=== PATIENT | female | born 1960 | race Caucasian/White ===

== ENCOUNTER 2017-07-05 23:17 | Inpatient (IN) | payer MEDICAID ==
--- NOTE | 2017-07-05 23:40 | CPEKG ---
Heart Rate: 55 RR Interval: 1091 QRSD Interval: 134 QT Interval: 564 QTC Interval: 540 P [place]: 0 QRS [place]: 246 T Wave [place]: 16 EKG Severity - ABNORMAL ECG - EKG Impression: Mobitz II second degree heart block EKG Impression: VENTRICULAR PREMATURE COMPLEX EKG Impression: SUPERIOR QRS AXIS EKG Impression: CONSIDER RIGHT VENTRICULAR HYPERTROPHY EKG Impression: PROLONGED QT INTERVAL Electronically Signed By: Oleg Solano 06-Jul-2017 06:03:27
--- NOTE | 2017-07-05 23:56 | EDPHY ---
H & P Stated Complaint: Low pulse at home HPI/ROS: Chief Complaint: Low heart rate HPI: 56-year-old woman with a history of hypothyroidism, CHF began feeling a weakness malaise and noticed that her heart rate was lower than usual. Denies any recent illness. Does not have a history of similar episodes in the past. She presented to [facility] with a noted that she was heart block and arrange transfer her down here. She was mildly hypokalemic with potassium 3.2. She was given oral potassium supplementation here. Denies any chest pain. Some mild shortness of breath. No fevers or chills. No nausea or vomiting. No recent illness. She has been compliant with all her medications. No recent traveling. ROS: 10 point Review of Systems is negative except as noted in the HPI. PMH: Diabetes type 2, CHF, hypothyroidism Social History: No smoking, no alcohol, no recreational drug use Family History: non-contributory Physical Exam: Gen: Awake, Alert, No Distress, morbidly obese HEENT: Nose: no rhinorrhea Eyes: PERRLA, EOMI Mouth: Moist mucosa Neck: Supple, no JVD Chest: nontender, lungs clear to auscultation Heart: S1, S2 normal, no murmur Abd: Soft, non-tender, no guarding Back: no CVA tenderness, no midline tenderness Ext: no edema, non-tender Skin: no rash Neuro: CN II-XII intact, Sensation grossly intact, Strength 5/5 in bilateral upper and lower extremities - Personal History Current Tetanus/Diphtheria Vaccine: Yes - Medical/Surgical History Hx Asthma: Yes Hx Chronic Respiratory Disease: No Hx Diabetes: Yes Hx Cardiac Disease: Yes Hx Renal Disease: No Hx Cirrhosis: No Hx Alcoholism: No - Social History Smoking Status: Never smoked Constitutional: Initial Vital Signs Temperature (C) 37.5 C 07/05/17 23:31 Heart Rate 78 07/05/17 23:31 Respiratory Rate 17 07/05/17 23:31 Blood Pressure 161/80 H 07/05/17 23:31 O2 Sat (%) 96 07/05/17 23:31 O2 Delivery Mode Room Air Allergies/Adverse Reactions: azithromycin Allergy (Verified 07/05/17 23:40) cefazolin [From Ancef] Allergy (Verified 07/05/17 23:40) cephalexin [From Keflex] Allergy (Verified 07/05/17 23:40) clindamycin Allergy (Verified 07/05/17 23:40) Penicillins Allergy (Verified 07/05/17 23:40) vancomycin Allergy (Verified 07/05/17 23:40) Home Medications: Medication Instructions Recorded Ativan 07/05/17 GABAPENTIN 07/05/17 HCTZ (*) 07/05/17 Humalog 07/05/17 Lasix 07/05/17 Levemir 07/05/17 MAGNESIUM 07/05/17 Metformin HCl 07/05/17 Ms Contin 07/05/17 POTASSIUM CL (KCl) 07/05/17 Protonix 07/05/17 Prozac 10 MG (*) 07/05/17 Spironolactone 07/05/17 Synthroid 07/05/17 ZYRTEC 07/05/17 Zofran 07/05/17 oxyCODONE IR 07/05/17 traZODone HCL 07/05/17 Medical Decision Making - Diagnostics EKG Interpretation: ECG time 11:39 p.m., sinus rhythm with a ventricular rate of 55. She is in a second-degree Mobitz 2 av block with a 2-1 conduction. Also has a prolonged QT at 5:40 a.m.. ED Course/Re-evaluation: I have reviewed her laboratory evaluations stress abel Rondon is mildly hypokalemic with potassium 3.2. Sodium 143. Glucose of 169 %period% creatinine 1.0. Has a mild leukocytosis of white count of 14.3. H&H are 15 and 44. BNP is 97. Troponin is less than 0.012. Case has been discussed with Dr. Rosado, cardiology. He will consult on the patient on the floor tomorrow. I have discussed with Dr. Harris, hospitalist. She will admit to telemetry for further monitoring. Departure - Departure Disposition: [facility] Acute Clinical Impression: Bradycardia Condition: Fair Referrals: Patient,NotPresent [Primary Care Provider] - As per Instructions
[2017-07-06] MEDS ORDERED: LORazepam 0.5 MG TAB PO PRN ×2 (00:28→11:28)
[2017-07-06] MEDS ORDERED: oxyCODONE IR 5 MG TAB PO PRN (00:28)
[2017-07-06] MEDS ORDERED: ACETAMINOPHEN 325 MG TAB PO PRN (00:28)
[2017-07-06] MEDS ORDERED: NS 1,000 ML IV SCH (00:30)
[2017-07-06] MEDS ORDERED: D50W 25 GM/50 ML VIAL IVP PRN (02:51)
[2017-07-06 04:35] LABS: PLATELET COUNT 263 10^3/uL (150-400)
--- NOTE | 2017-07-06 05:09 | GHP ---
[f rep st] HISTORY AND PHYSICAL DATE OF ADMISSION: 07/06/2017 SOURCE: Patient provides history, appears reliable. Her EMR was reviewed. Case discussed with ED lacy mansfield and also reviewed outside hospital records from [facility]. CHIEF COMPLAINT: Irregular pulse, slow heart rate, and chest pain. HISTORY OF PRESENT ILLNESS: This is a pleasant 56-year-old female with multiple medical issues inclu ding diabetes type 2 with neuropathy, hypothyroidism, chronic pain syndrome on chronic opiate therapy , morbid obesity with BMI 53.0, asthma, depression, headaches, diastolic CHF, anemia, iron deficiency with Bey's, and a history of thoracic outlet syndrome who presents to the emergency department a t [facility] today with complaints of slowed heart rate. The patient states that she felt nearly pre syncopal while at rest this afternoon, sitting on her neighbor's porch. The patient reports that she felt like her heart was feeling funky the last 2 days and she felt as though her heart stopped for a few moments and then began to experience significant palpitations within a few seconds. The patient reports a history of PATs and PVCs, especially with any increase in altitude. She denies any chest pain or discomfort, rather just the palpitations. She also reports increasing shortness of breath fr om her baseline. Patient with a known history of diastolic CHF for which she takes HCTZ and Lasix, s pironolactone p.r.n. The patient denies any orthopnea, lower extremity edema, PND currently. 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 She checked her heart rate and her oxygen and noted that her heart rate was in the 50s. Normally she is in the 80s. The patient presented to [facility] in the evening for evaluation shortly after her symptoms began. REVIEW OF SYSTEMS: GENERAL: Patient denies any fevers or chills. SKIN: No acute rashes or sores. ENT: Positive sore throat. No rhinorrhea. EYES: Patient does wear readers. No acute changes in vision. CV: Chest pain and palpitations as per HPI. RESPIRATORY: No cough. Shortness of breath i s resolved, as noted above. GI: Patient denies any abdominal pain currently. She did experience so me cramping on [place], which has since resolved. She does have a history of hemorrhoids. : No dysuria, hematuria. MUSCULOSKELETAL: Patient reports some chronic left subscapular pain, which has required use of chronic narcotic therapy. NEUROPATHY: Bilateral feet and occasional headache. No current migraine. PSYCH: Patient reports history of anxiety and depression for which she reports th at she has excellent impulse control, although it appears that she does have some potential suicidal ideation that she had and adamantly denies that she would ever harm herself. No HI. The remainder of review of systems is negative except as above. ALLERGIES: Vancomycin, penicillin, Demerol, codeine, Keflex, clinda, lisinopril, patient develops we akness. PAST MEDICAL HISTORY: Significant for GERD, diastolic CHF, iron deficiency anemia, diabetes type 2, neuropathy, hypothyroidism, chronic pain on chronic opiate therapy for subscapular pain, history of t horacic outlet syndrome, JONNY on BiPAP at home, Bey esophagus. Patient with multiple antihyperten sives. Reviewed this with the patient, she adamantly denies history of hypertension. At least, she reports that she will refuse to acknowledge it, so I am not able to clarify if she actually has been diagnosed with hypertension on an outpatient basis. PAST SURGICAL HISTORY: Significant for tonsillectomy, adenoidectomy, appendectomy, cholecystectomy, both of which were open, with exploratory laparotomy, hysterectomy, lysis of adhesions, left 1st rib resection, left total knee arthroplasty, and several D and Cs. FAMILY HISTORY: Significant for Mother and Father with JONNY. Mother with diabetes, hypertension. Fa ther with hypertension. 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 She does not smoke, drink, or do drugs. CODE STATUS: Full. Patient desires her sister, Usha Solis, to act as proxy if needed. PHYSICAL EXAMINATION: VITAL SIGNS: Initial vitals at [facility], blood pressure 122/56, respiratory rate 15, pulse 47, temperature 98.4, O2 saturation 92% on room air. Vitals currently available at [facility] of interview, blood pressure 144/66, heart rate 65, respiratory rate 19, O2 saturation 91% on patricia m air with temperature 37.3. GENERAL: No acute distress. Pleasant, morbidly obese female who appea rs quite older than stated age, who is sitting up on gurney, is not in any acute distress. HEAD: No rmocephalic, atraumatic. EYES: Extraocular muscles are grossly intact with voluntary gaze. Pupils equal, round, symmetric. No scleral icterus or conjunctival injection. ENT: Mucous membranes appea r moist. No nasal discharge. Dentition intact. CV: Regular rate and rhythm with a 2/6 to 3/6 syst olic murmur present. No rubs or gallops. RESPIRATORY: Unlabored breathing. Lungs are clear to aus cultation bilaterally. No wheezes, rales, or rhonchi appreciated. ABDOMEN: Obese, soft, nontender to palpation. No apparent masses. : No suprapubic tenderness to palpation. No Ruth catheter in place. PSYCH: Patient does appear anxious and depressed. She has slightly increased rate of speec h, but it is not pressured. Patient does report a history of persistent long-standing SI without any plans and no HI. Patient reports she has struggled with depression since the age of 16 several time s. LABORATORY STUDIES: From [facility]: Sodium is 143, potassium 3.2, chloride 104, CO2 is 20, glucose 169, BUN 14, creatinine 1.0, GFR of greater than 60. Calcium 10.0, magnesium 1.9. WBC is 14.3, H a nd H is 14.8 and 44.5, MCV of 87.0, platelet count is 279. No bands. BNP is 97. Troponin is negati ve. TFTs including free T4, TSH, all within normal limits. EKG initial from outside facility reviewed myself and compared to current EKG: Significant for tejas l sinus rhythm in the 70s with a second-degree AV block, Mobitz type II. No acute ST changes. QTc i s initially greater than 600, current in the ER is greater than 540. ASSESSMENT AND PLAN: Pleasant 56-year-old female with multiple chronic medical comorbidities, who pr esents to the emergency department with complaints of palpitations, dyspnea, and feeling as though he r heart stopped. 1. Second-degree AV block Mobitz type II, 2:1 block. The patient will be monitored on telemetry zion serge. She already has an external pacer pad in place. Currently blood pressures are acceptable and plan to monitor closely. If the patient's heart rate should continue to downtrend, will require some atropine p.r.n. For now, we will just monitor. Cardiology was consulted from the emergency departm ent and will plan to see the patient in the morning. 2. Hypokalemia. Replacement has been ordered. The patient denies that she has been on any of her d iuretics recently. 3. Left bundle branch block. Unclear if this is new. 4. Prolonged QTc. We will request that Pharmacy assist with monitoring and try to minimize potentia l risks. 5. Leukocytosis, likely reactive. We will plan to monitor. Patient is afebrile. 6. Diastolic congestive heart failure with decompensation, chronic. May require initiation of her d iuretics. We will monitor her fluid status. 7. Diabetes type 2, uncontrolled. Continue patient's Lantus which she reports she received prior to arrival and will further verify the patient's home med rec while awaiting reconciliation with APS in the morning. 8. Gastroesophageal reflux disease. Continue patient's Protonix and H2 kieran p.r.n. 9. Neuropathy. Continue gabapentin. 10. Allergic rhinitis. Zyrtec daily, when list is reconciled. 11. Chronic pain. Resume patient's Oxy IR and MS Contin. Monitor blood pressures closely. She is on telemetry and pulse ox. 12. Hypothyroidism. TSH evaluated, within normal limits. Okay to continue patient's home dosing of Synthroid. 13. Hyperlipidemia. Continue statin when list is available. 14. Morbid obesity. BMI of 52.0. Patient reports that her chronic pain in the left scapula is wors ened by any sort of activity. So, she has minimal capacity for exertion. But, would recommend lifes tyle changes and weight loss. 15. Fluid, electrolyte, and nutrition. Patient will receive some gentle IV fluid hydration. Blood pressures will be monitored as well as fluid status. The patient will receive an ADA diet and then n .p.o. pending Cardiology evaluation and recommendations. Reviewed with the patient, possibility for placement of pacer may not be a possibility until electrophysiologic safety representative is available for pa cer placement, but will await Cardiology recommendations. 16. Prophylaxis. Sequential compression devices. Holding Lovenox pending Cardiology recommendation s. If the patient requires additional hospital stay, will initiate anticoagulation therapy. Sequent ial compression devices as tolerated. 17. Code status. Full. Patient desires her sister, Usha Solis, to act as proxy if needed. 18. Disposition. Patient has been admitted to observation at this time on the telemetry floor, pend ing Cardiology recommendations. If recommendation is to proceed with the pacer placement and electro mh teacher is not available, then anticipate the patient will need to remain in the hospital until such time as this is done, but again, we will await Cardiology recommendations and place patient to o bservation on PCU for close cardiac monitoring. /[id number]/MODL
[2017-07-06] MEDS ORDERED: PROTOCOL MAGNESIUM 1 DOSE IV PRN (08:28)
[2017-07-06] MEDS ORDERED: PROTOCOL POTASSIUM 1 DOSE MISC PRN (08:28)
[2017-07-06] MEDS ORDERED: morphINE SR 15 MG TAB PO SCH ×2 (09:00→21:00)
[2017-07-06] MEDS: INSULIN LISPRO 100 UNIT/ML SC SCH ×3 (09:11→18:58)
[2017-07-06] MEDS ORDERED: REGADENOSON 0.4 MG/5 ML SYR IVP ONE (10:37)
--- NOTE | 2017-07-06 10:45 | GCON ---
[f rep st] CONSULTATION CARDIOLOGY CONSULTATION DATE OF CONSULTATION: 07/06/2017 REFERRING PHYSICIAN: Zaira Harris MD CHIEF COMPLAINT: Heart block and chest pain. HISTORY OF PRESENT ILLNESS: We were asked by Dr. Harris to visit with this patient. The patient is a 56-year-old female with diabetes, hypertension, sleep apnea, heart failure with preserved ejection f raction. She does not have any known history of coronary disease or any known history of arrhythmia. She was watching a football game yesterday and started to feel unwell. She describes feeling "vaga l." She was a little bit lightheaded, but did not have syncope. She had some sensation in her chest that "didn't feel right." It was not pressure, but she felt like her heart was working harder. Her heart rate was low, which is unusual for her, in the 50s; and she felt short of breath. She got up and had a bowel movement, but continued to feel somewhat poorly. She therefore presented to the [facility] emergency department. There, she was found to be in 2:1 heart block on 12-lead EKG. I reviewed rhythm strips, some of whic h show [place]. She was therefore transferred for further evaluation and management. Upon my evaluation, she reports feeling back to normal and that her heart rate is now normal in the 7 0s. She currently has no chest pressure or dyspnea. She does not have any history of syncope in the past. A few months ago she did have a similar episode where she felt like her heart rate was irregu lar, but did not seek medical attention at that time. REVIEW OF SYSTEMS: A full 10-point review of systems performed and is notable for that which is deta iled above. She has also had somewhat of an upset stomach intermittently for the past 6 days. No vo miting. No diarrhea. No fever, chills, rash. No urinary symptoms. No neurological symptoms. The patient reports that she has missed 3 doses of potassium because she was just not feeling well. She wondered if potassium was too high. Also, she has been taking a supplement called EDTA, that is some sort of chelating agent, but she has not taken this for a week. ALLERGIES: Azithromycin, cefazolin, cephalexin, clindamycin, penicillin, vancomycin. PAST MEDICAL HISTORY: 1. Sleep apnea, on CPAP. 2. Diabetes. 3. Kidney stones. 4. Hypothyroidism. 5. Hypertension. 6. Heart failure with preserved ejection fraction. 7. Bey esophagus and reflux. 8. Chronic pain syndrome, on narcotics. 9. Depression. 10. Anemia with iron deficiency. 11. Reactive airways disease. 12. Morbid obesity. 13. Thoracic outlet syndrome. MEDICATIONS: Outpatient medications have not been reconciled, but according to the [facility] emerge ncy department, they include Protonix, HCTZ, metformin, insulin, magnesium, gabapentin, albuterol, ar modafinil, aspirin, Zyrtec, famotidine, Lasix, Synthroid, Ativan, magnesium oxide, melatonin, MS Cont in, Zofran, potassium chloride, simvastatin, tramadol and Zomig. SURGICAL HISTORY: Cholecystectomy, appendectomy, adenoidectomy, tonsillectomy, hysterectomy, lysis o f adhesions, left total knee arthroplasty, D and C's, left 1st rib resection. SOCIAL HISTORY: The patient lives alone. She is a retired ER nurse. She does not smoke cigarettes. She drinks alcohol rarely. She denies significant use of supplements, other than EDTA. FAMILY HISTORY: Both parents had sleep apnea. Mother had diabetes and hypertension. Father had hyp ertension. PHYSICAL EXAM: VITAL SIGNS: Blood pressure 111/65, heart rate 74, oxygen saturation 91% on room air . She is afebrile. GENERAL: Well-appearing, middle-aged female in no acute distress. HEENT: Scle nayla clear, free of jaundice. Mucous membranes moist. CARDIOVASCULAR: JVP is less than 10. Carotid s equal and 2+ without bruit. Regular rate and rhythm without murmur or gallop. LUNGS: Clear to au scultation; without wheeze, rhonchi or rales. ABDOMEN: Obese, soft, nontender, nondistended; withou t bruits, masses or hepatosplenomegaly. EXTREMITIES: Warm and well perfused; without cyanosis, club jake or edema. NEURO: Alert and oriented x3, without gross focal neurologic deficits. LABORATORY DATA: White count is 13.03 with a left shift, hematocrit 40.2, and platelets 263. Sodium 144, potassium 3.8, chloride 103, bicarb 24, BUN 16, creatinine 1.0, glucose is 128. Troponin negat kranthi x1. TSH is normal. Magnesium 1.8. EKG reviewed by me from our ER department shows complete heart block with a junctional escape of 55 b eats per minute. No ischemic ST-T wave abnormalities. EKG from [facility] as well as rhythm strips reviewed and detailed above. ASSESSMENT AND PLAN: A 56-year-old female with multiple cardiac risk factors, presents with lighthea dedness and intermittent complete heart block as well as episodes of type 1 and type 2 heart block. She is currently in normal sinus rhythm. It is possible that she has significant vagal trigger relat ed to her gastrointestinal symptoms. I am also, however, concerned about cardiac ischemia as a marc er given her multiple cardiac risk factors and description of vague chest discomfort around the time that this is happening. It is reassuring that her 1st troponin has been negative despite several rhonda rs of symptoms. 1. Heart block: She is currently hemodynamically stable, in normal sinus rhythm. There is no indic ation for urgent pacemaker. She does require further monitoring. We will replete her electrolytes. Her thyroid is normal. We will check a 2nd troponin and if this is negative, proceed with further r isk stratification with a Lexiscan nuclear stress test. She is unable to walk on the treadmill due t o orthopedic limitations. If she has no further episodes of heart block while here on the monitor, I would recommend close outpatient followup with a 30-day event recorder. She is not on any medicatio ns that should induce heart block, and I have advised that she stop taking the EDTA supplement, as I do not know the possible side effects. 2. Hypertension: Currently fairly well controlled on her outpatient medications. 3. Chest pain: Her 1st troponin is negative. EKG is nonischemic. It is a puzzle. Check 2nd tropo buffy and if normal, proceed with Lexiscan nuclear stress test. 4. History of heart failure with preserved ejection fraction: She appears euvolemic. Echocardiogra m is pending. Continue outpatient medications with the exception of hydrochlorothiazide. 5. History of hypokalemia: She has chronically been on hydrochlorothiazide for kidney stones. I wo uld advise holding this for now and repeating her potassium. It is possible that her electrolyte abn ormality somehow played into her heart rhythm disturbance. 6. Elevated white count: She does not appear to be acutely infected. Follow this. She is afebrile . We will defer to the hospitalist about whether she requires further evaluation for elevated white count. 7. Sleep apnea: Continue continuous positive airway pressure. Thank for allowing us to participate in this patient's care. More recommendations will follow her ec hocardiogram and nuclear stress test. /[id number]/MODL
--- NOTE | 2017-07-06 10:56 | ECHO ---
[email or web address] [address] [address] Main: [phone] Fax: [email or web address] Echocardiogram Name: CECE STAHL MR#: [id number] Study Date: 07/06/2017 Study Time: 09:34 AM Date of : 1960 Age: 56 year(s) Height: 162.6 cm (64 in.) Weight: 141.52 kg (312 lb.) BSA: 2.36 m2 Gender: Female Examination: Echo Indication: Bradycardia/CHF/2nd degree heart block Image Quality: Contrast: Requested by: Zaira Harris BP: 111 mmHg/65 mmHg Heart Rate: Rhythm: Indication: Bradycardia/CHF/2nd degree heart block Procedure Staff Exchange Architect: Jeannie Yanez Reading Physician: Tabitha Mckeon Requesting Provider: Zaira Harris Conclusions: Normal size left ventricle. Normal global systolic LV function. Technically limited study; no gross regional wall motion abnormalities. Normal size right ventricle. Valves are not well visualized; no significant regurgitant or stenotic lesions by Doppler There is no previous echocardiogram for comparison. Measurements: Chambers Valvular Assessment AV/MV Valvular Assessment TV/PV Normal Normal Normal Name Value Range Name Value Range Name Value Range Ao Lily (MM): 3.4 cm (2.2 cm-3.7 AV Vmax: 1.09 m/s (1 m/s-1.7 cm) m/s) LVDd (2D): 3.8 cm (3.9 cm-5.3 AV maxP mmHg ( - ) cm) MV E Vmax: 0.74 m/s ( - ) MV A Vmax: 0.81 m/s ( - ) MV E/A: 0.91 ( - ) Continued Measurements: Chambers Valvular Assessment AV/MV Name Value Name Value LADs: 3.9 cm MV E/E' Septal: 12.50 MV E/E' Lateral: 10.10 Findings: Left Ventricle: Normal size left ventricle. Normal global systolic LV function. Technically limited study; no gross Patient: CECE STAHL Study Date: 07/06/2017 Page 1 of 2 09:34 AM regional wall motion abnormalities. Right Ventricle: Normal size right ventricle. Normal RV function. Left Atrium: The LA is borderline dilated.. Right Atrium: The right atrium is normal in size. Mitral Valve: The mitral valve is normal in appearance. Aortic Valve: Aortic valve is not well visualized. Tricuspid Valve: The tricuspid valve appears normal. Pulmonic Valve: Pulmonary valve not well visualized. Pericardium: No pericardial effusion. There is pericardial fat. (No Signature Object) Patient: CECE STAHL Study Date: 07/06/2017 Page 2 of 2 09:34 AM [id number]
--- NOTE | 2017-07-06 11:15 | CPIP ---
[f rep st] INVASIVE CARDIAC PROCEDURE CHIEF COMPLAINT: Palpitations. PROCEDURE: The patient gave informed consent for nuclear imaging Lexiscan. She is not a candidate f or walking on a treadmill. FINDINGS: Her baseline EKG is abnormal with interventricular conduction delay and dropped non-conduc osmany premature atrial contractions. With the Lexiscan injection, the patient received no chest pain, chest tightness, or other troubles. She is in sinus rhythm at the end of the study and nuclear image s are pending. All questions have been answered. COMPLICATIONS: None. CONDITION AT END OF STUDY: Excellent. /[id number]/MODL
[2017-07-06] MEDS ORDERED: NON-FORMULARY NEW DRUG (Gabapentin [Neurontin] 600 MG) PO PRN (11:28)
[2017-07-06] MEDS ORDERED: morphINE SR 15 MG TAB PO PRN (11:28)
--- NOTE | 2017-07-06 11:46 | ASMTCMCOM ---
CM Note CM Note Notes: 07/06/2017 Case Management Note Met w/pt. 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 Her primary care provider is Jaja Renae ([facility] per pt). Pt has Home O2 provided by [facility]. Pt plans to start cardiac rehab as an outpatient as recommended by Jaja Renae. Pt to contact cardiac rehab on Friday. Case Management d/c poc: home independent with follow up as directed. Case Management available if needs change. Date Signed: 07/06/2017 11:46 AM Electronically Signed By:Maryana Dash RN
[2017-07-06] MEDS ORDERED: GABAPENTIN 300 MG CAP PO PRN (11:58)
[2017-07-06] MEDS ORDERED: POTASSIUM CL 10 MEQ TAB PO ONE (12:54)
[2017-07-06] MEDS: oxyCODONE IR 5 MG TAB PO PRN (13:05)
--- NOTE | 2017-07-06 16:39 | HOSPPROG ---
Hospitalist Progress Note Assessment/Plan: Stress images abnormal. Needs rest images in am. 3rd degree heart block - may need eventual pacemaker. Objective: Vital Signs Temp Pulse Resp BP Pulse Ox 36.8 C 80 17 138/80 H 97 07/06/17 16:20 07/06/17 16:20 07/06/17 16:20 07/06/17 16:20 07/06/17 16:20 Laboratory Results 07/06/17 03:55 07/06/17 09:25 07/05/17 07/06/17 07/07/17 05:59 05:59 05:59 Intake Total 750 Balance 750 ICD10 Worksheet Patient Problems: Problems Problem Status Onset Bradycardia Acute
--- NOTE | 2017-07-06 17:02 | PDMN ---
Medical Necessity Medical necessity: C/M review: est. > 2 MN LOS for eval and TX of acute and persistent intermittent 3d degree heart block, 07/06/2017 myocardial perfusion scan stress test images abnormal requiring planned 07/07/2017 myocardial perfusion scan rest images, patient may need eventual pacemaker, ongoing cardiac monitoring, pulse oximetry per 07/06/2017 Hospitalist progress note
[2017-07-06] MEDS: metFORMIN HCL 500 MG TAB PO SCH (18:41)
[2017-07-06] MEDS: POTASSIUM CL 20 MEQ TAB PO SCH (20:18)
[2017-07-06] MEDS: MAGNESIUM OXIDE 400 MG TAB PO SCH (20:19)
[2017-07-06] MEDS: PANTOPRAZOLE SODIUM 40 MG TAB PO SCH (20:19)
[2017-07-06] MEDS: INSULIN GLARGINE 100 UNITS/ML SYRINGE SC SCH (20:36)
[2017-07-06] MEDS ORDERED: GABAPENTIN 400 MG CAP PO SCH (21:00)
[2017-07-06] MEDS ORDERED: IPRATROPIUM/ALBUTEROL 3 ML DEYVIAL IH SCH (21:00)
[2017-07-06] MEDS ORDERED: CETIRIZINE 10 MG TAB PO SCH (21:00)
[2017-07-06] MEDS ORDERED: NON-FORMULARY NEW DRUG (Gabapentin [Neurontin] 1,200 MG) PO SCH (21:00)
[2017-07-06] MEDS ORDERED: NON-FORMULARY NEW DRUG (Magnesium Oxide [Magnesium] 500 MG) PO SCH (21:00)
[2017-07-06] MEDS ORDERED: TOPIRAMATE 100 MG TAB PO SCH (21:00)
[2017-07-06] MEDS ORDERED: NON-FORMULARY NEW DRUG (Insulin Detemir [Levemir] 40 UNIT) SC SCH (21:00)
[2017-07-06] MEDS ORDERED: NON-FORMULARY NEW DRUG (Eszopiclone [Lunesta] 3 MG) PO SCH (21:00)
[2017-07-06] MEDS ORDERED: ZOLPIDEM TARTRATE 5 MG TAB PO SCH (21:00)
[2017-07-07] MEDS ORDERED: POTASSIUM CL 10 MEQ TAB PO ONE (03:22)
[2017-07-07 04:21] LABS: PLATELET COUNT 243 10^3/uL (150-400)
[2017-07-07] MEDS ORDERED: LEVOTHYROXINE 50 MCG TAB PO SCH (06:00)
[2017-07-07] MEDS: INSULIN LISPRO 100 UNIT/ML SC SCH ×2 (07:34→11:41)
[2017-07-07] MEDS ORDERED: ALLOPURINOL 300 MG TAB PO SCH (09:00)
[2017-07-07] MEDS ORDERED: ASPIRIN EC 81 MG TAB PO SCH (09:00)
[2017-07-07] MEDS ORDERED: FLUoxetine 20 MG CAP PO SCH (09:00)
[2017-07-07] MEDS ORDERED: NON-FORMULARY NEW DRUG (Fluoxetine Hcl [Prozac 40 Mg] 40 MG) PO SCH (09:00)
[2017-07-07] MEDS ORDERED: HYDROCHLOROTHIAZIDE 25 MG TAB PO SCH (09:00)
[2017-07-07] MEDS: metFORMIN HCL 500 MG TAB PO SCH (11:33)
[2017-07-07] MEDS: POTASSIUM CL 20 MEQ TAB PO SCH (11:35)
[2017-07-07] MEDS: MAGNESIUM OXIDE 400 MG TAB PO SCH (11:36)
[2017-07-07] MEDS: PANTOPRAZOLE SODIUM 40 MG TAB PO SCH (11:37)
[2017-07-07] MEDS: INSULIN GLARGINE 100 UNITS/ML SYRINGE SC SCH (11:38)
[2017-07-07 11:44] VITALS: BP 124/76; PULSE 73; RESP 17; TEMP 98.4; O2SAT 95
--- NOTE | 2017-07-07 13:43 | PDCARPN ---
Cardiology Progress Note Assessment/Plan: Assessment/plan: 56-year-old female with obesity, diabetes, hypertension, sleep apnea. She is admitted with transient heart block, brief complete heart block, some type 1, and some type 2 second-degree heart block. This has resolved. She was having vagal symptoms. She has ruled out for myocardial infarction had a normal myocardial perfusion study. 1. Transient heart block: This may have been vagally triggered or possibly electrolyte abnormalities are potassium was low in the [facility]. The past 20 far she has been in sinus rhythm. Currently no clear indication for pacemaker. I do think, however, she requires close clinical follow-up as an outpatient she will wear a 2 week event recorder in follow-up [facility]. She will call immediately if she has further lightheadedness or symptoms of dropped beats. 2. Chest pain: Negative troponins. Nonischemic EKG. Normal myocardial perfusion study. Continue risk factor modification. 3. Hypertension: Continue outpatient medications, consider stopping hydrochlorothiazide as she has had previous problems with hyperkalemia. 4. Diabetes: Outpatient medications. At this point she is stable for discharge from a cardiac standpoint. Follow-up as detailed above. Thank you 07/07/17 13:47 Subjective: No further chest pain. No further sensation of dropped beats. She is slightly dyspneic with exertion. Objective: Vital Signs (8 Hrs) Temp Pulse Resp BP Pulse Ox 07/07/17 11:43 36.9 C 73 17 124/76 H 95 07/07/17 07:36 37.0 C 78 13 104/58 L 99 Intake/Output (24 Hrs) 07/06/17 07/07/17 07/08/17 05:59 05:59 05:59 Intake Total 1200 450 Balance 1200 450 Intake: Oral (ml) 1200 450 Other: Weight 140.16 kg Intake Quantity Yes Sufficient Number of Voids Toilet 3 Number of Stools Toilet 1 No acute distress. Regular rate and rhythm without murmur or gallop Lungs clear bilaterally without wheezes rhonchi or rales No lower extremity edema Result Diagrams: 07/07/17 04:15 07/07/17 04:15 Telemetry: NSR Echocardiogram: Reviewed. Technically limited study. Normal LV systolic function without obvious regional wall motion abnormalities. No significant valvular disease on this limited study. ICD10 Worksheet Patient Problems: Problems Problem Status Onset Bradycardia Acute
[2017-07-07] MEDS: oxyCODONE IR 5 MG TAB PO PRN (15:33)
--- NOTE | 2017-07-07 16:15 | ASDISCHSUM ---
Discharge Information Plan Status:Home with No Needs Medically Cleared to Leave:07/06/2017 Discharge Date:07/07/2017 03:38 PM CM D/C Disposition:Home, Routine, Self-Care ADT D/C Disposition:Home, Routine, Self-Care Projected Discharge Date:07/07/2017 12:00 AM Transportation at D/C:Self Discharge Delay Reason: Follow-Up Date:07/07/2017 12:00 AM Discharge Slot: Final Diagnosis: Placement Information Patient Contact Information Contact Name:DENISE Relationship: Address: Home Phone: Work Phone: City: Alternate Phone: State/[place] Code: Email: Financial Information Financial Class: Primary Plan Desc:[employer] Primary Plan Number:[id number] Secondary Plan Desc: Secondary Plan Number: Assessment Information [facility] CM Progress Note CM Note CM Note Notes: 07/06/2017 Case Management Note Met w/pt. 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 Her primary care provider is Jaja Renae ([facility] per pt). Pt has Home O2 provided by [facility]. Pt plans to start cardiac rehab as an outpatient as recommended by Jaja Renae. Pt to contact cardiac rehab on Friday. Case Management d/c poc: home independent with follow up as directed. Case Management available if needs change. Date Signed: 07/06/2017 11:46 AM Electronically Signed By:Maryana Dash RN Intervention Information
--- NOTE | 2017-07-07 19:24 | GDS ---
[f rep st] DISCHARGE SUMMARY DISCHARGE DIAGNOSES: 1. Transient complete heart block, suspect vagal. 2. Chest pain with negative ischemic workup. 3. Morbid obesity. BMI 53. 4. Diabetes, type 2. 5. Obstructive sleep apnea, on BiPAP. 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 She describes intermi ttent palpitations and also feeling like her heart is stopping and slowing. There is also associated chest pain with these episodes. In the emergency department at [place], she was noted to have a brief complete heart block, as well as episodes of type 1 and type 2 heart block. Throughout her observation period here she remained in normal sinus rhythm. She was seen by Dr. Jose Mckeon who felt these were vagally mediated due to gastrointestinal symptoms. She obtained a cardiac stress to work up for possible cardiac ischemia as a cause, given her presentation of chest pain. H er stress test was normal. Dr. Mckeon does not feel there is enough evidence to place a pacemaker at [facility] time, given the suspicion for vagal mediation. She recommends outpatient event monitoring for e next 2 weeks for further assessment. She also recommends discontinuing her hydrochlorothiazide, as the patient was hypokalemic on presentation which may be contributing. DISCHARGE MEDICATIONS: Please see computer record for a full detailed list. There are no new medica tions at hospital discharge. Discontinued medications are hydrochlorothiazide 25 mg p.o. daily. ADDITIONAL DISCHARGE INSTRUCTIONS: A 2-week event monitor to be arranged through [facility] with followup with Dr. Tabitha Mckeon. Greater than 30 minutes' time was spent in arranging this discharge. The patient was seen and examin ed by me on the day of discharge. /[id number]/MODL
== END 2017-07-07 15:38 | disposition home or self-care (01) | DRG 309 ==
LOC: F2W 07-06 01:24 → OBSVTOIN 07-06 15:16
PROVIDERS: ADMIT Family Medicine; ATTEND Internal Medicine
DX: I44.2 Atrioventricular block, complete (principal); I44.1 Atrioventricular block, second degree; R07.9 Chest pain, unspecified; E66.01 Morbid (severe) obesity due to excess calories; Z68.43 Body mass index [BMI] 50.0-59.9, adult; I50.30 Unspecified diastolic (congestive) heart failure; E87.6 Hypokalemia; R00.1 Bradycardia, unspecified; I45.81 Long QT syndrome; G47.33 Obstructive sleep apnea (adult) (pediatric); E11.40 Type 2 diabetes mellitus with diabetic neuropathy, unspecified; E03.9 Hypothyroidism, unspecified; G89.29 Other chronic pain; J45.909 Unspecified asthma, uncomplicated; F32.9 Major depressive disorder, single episode, unspecified; D50.9 Iron deficiency anemia, unspecified; K22.70 Barrett's esophagus without dysplasia; K21.9 Gastro-esophageal reflux disease without esophagitis; E78.5 Hyperlipidemia, unspecified; Z79.891 Long term (current) use of opiate analgesic; Z79.4 Long term (current) use of insulin; Z87.442 Personal history of urinary calculi; Z96.652 Presence of left artificial knee joint; Z88.0 Allergy status to penicillin
CPT/HCPCS: A9500; J1815; J2785

== ENCOUNTER 2017-08-06 15:16 | Inpatient (IN) | payer MEDICAID ==
--- NOTE | 2017-08-06 15:36 | EDPHY ---
HPI/HX/ROS/PE/MDM Narrative: CHIEF COMPLAINT: Abnormal EKG HISTORY OF PRESENT ILLNESS: This patient is an obese 56 year old female s/p pacer placement 07/08/17 arriving at the request of her tile layer for evaluation of an abnormal EKG earlier today. She was admitted 07/06/17 for bradycardia and chest pain, and discovered to have a second-degree AV block. The patient states that since her pacer placement "my heart feels like sludge", and she feels there is competition between her heart and the pacemaker. 07/17 she had the pacemaker interrogated, and felt lightheaded afterwards. She had a repeat interrogation 07/29, at which time she was noted to have atrial fibrillation. The patient was prescribed Eliquis, but was not able to start this due to insurance complications. She did begin taking Coumadin (5mg) last night. Prior to this, she was taking ASA 325 QD until 07/29 when she began taking ASA 325mg BID. Her provider, Chika Mcconnell, referred her to Dr. Ellsworth, [facility], for further evaluation. Today, she saw Dr. Ellsworth at 2pm who referred her to ED for x-rays and admission for perioperative management for a possible loose apical lead in her pacemaker. No fever, chills, chest pain, shortness of breath, vomiting, diarrhea, urinary complaints, headache. REVIEW OF SYSTEMS: Aside from elements discussed in the HPI, a comprehensive 10-point review of systems was reviewed and is negative. PAST MEDICAL HISTORY: 1. Biotronik pacemaker placed 07/08/17 2. GERD 3. Diastolic CHF 4. Diabetes mellitus type II with neuropathy 5. Hypothyroidism 6. Asthma 7. Chronic pain (chronic opiate therapy) 8. Morbid obesity 9. Obstructive sleep apnea (BiPAP) 10. Anemia 11. Thoracic outlet syndrome 12. Surgical history includes tonsillectomy, adenoidectomy, appendectomy, cholecystectomy, hysterectomy, left knee arthroscopy. SOCIAL HISTORY: Retired ER nurse. Nonsmoker. No alcohol or illicit drug use. VITAL SIGNS: Reviewed by me GENERAL: Obese, well-developed, well-nourished, resting comfortably in no respiratory distress. HEENT: Atraumatic. Eyes: No icterus, no injection. Mouth: moist mucous membranes. No erythema or lesions. Neck: supple with no adenopathy. LUNGS: Clear to auscultation bilaterally, no wheezes, rhonchi or rales. CARDIAC: Paced, slightly irregular rhythm, no rubs, murmurs or gallops. ABDOMEN: Soft, nontender, nondistended, bowel sounds normal. BACK: No CVA tenderness. EXTREMITIES: No trauma. No edema. Range of motion is normal throughout. NEURO: Alert and oriented, grossly nonfocal. SKIN: Warm and dry, no rash. PSYCHIATRIC: Normal mentation, no agitation. Portions of this note were transcribed by a medical assistant float. I personally performed a history, physical exam, medical decision making, and confirmed accuracy of information the transcribed note. ED Course: 56 year old female s/p pacer placement 07/08/17 presents for further evaluation to correct a possible improperly placed pacemaker lead. 12-LEAD EKG: Please see the full report in [facility]. My interpretation: Atrial-sensed ventricular-paced rhythm. Rate 83. 16:01 Biotronik rep at bedside. Reviewed chest x-ray. Atrial lead appears misplaced. Reviewed past x-rays. Correct placement 07/08/16 immediately following procedure. 16:[address] Lawson, radiologist. Confirms right atrial lead improper placement. Consulted with Dr. Ellsworth, tile layer. 16:24 Consulted with hospitalist service. Dr. Bernabe accepts admission to PCU for pacemaker lead malposition. MDM: Diff dx considered included but not limited to pacemaker lead malplacement, pacemaker malfunction, atrial fibrillation, acute coronary syndrome, valvular issue, congestive heart failure. - Data Points Imaging Results: Imaging Impressions Chest X-Ray 08/06/17 15:35 Impression: 1. The right atrial lead is directed inferiorly instead of the usual curve. Right ventricular lead is normal in location. Findings discussed with Skip Martinez MD at 16:13 hour, 08/06/2017. Imaging: Discussed imaging studies w/ call center rn Radiologist Laboratory Results: Laboratory Results 08/06/17 15:40 08/06/17 15:40 08/06/17 08/06/17 08/06/17 16:00 15:40 15:40 WBC RBC Hgb Hct MCV MCH MCHC RDW Plt Count MPV Neut % (Auto) Lymph % (Auto) Bell % (Auto) Eos % (Auto) Baso % (Auto) Nucleat RBC Rel Count Absolute Neuts (auto) Absolute Lymphs (auto) Absolute Monos (auto) Absolute Eos (auto) Absolute Basos (auto) Absolute Nucleated RBC Immature Gran % Immature Gran # PT 13.0 SEC SEC Cancelled (12.0-15.0) INR 0.96 Cancelled (0.83-1.16) APTT 27.3 SEC SEC Cancelled (23.0-38.0) Sodium Potassium Chloride Carbon Dioxide Anion Gap BUN Creatinine Estimated GFR Glucose Hemoglobin A1c 7.2 % H % (4.0-6.0) Estim Average Glucose 160 mg/dL H mg/dL (68-126) Calcium Troponin I 08/06/17 08/06/17 15:40 15:40 WBC 9.80 10^3/uL H 10^3/uL (3.80-9.50) RBC 4.62 10^6/uL 10^6/uL (4.18-5.33) Hgb 13.0 g/dL g/dL (12.6-16.3) Hct 40.5 % % (38.0-47.0) MCV 87.7 fL fL (81.5-99.8) MCH 28.1 pg pg (27.9-34.1) MCHC 32.1 g/dL L g/dL (32.4-36.7) RDW 15.6 % H % (11.5-15.2) Plt Count 233 10^3/uL 10^3/uL (150-400) MPV 11.8 fL H fL (8.7-11.7) Neut % (Auto) 74.7 % H % (39.3-74.2) Lymph % (Auto) 15.9 % % (15.0-45.0) Bell % (Auto) 5.7 % % (4.5-13.0) Eos % (Auto) 3.1 % % (0.6-7.6) Baso % (Auto) 0.3 % % (0.3-1.7) Nucleat RBC Rel Count 0.0 % % (0.0-0.2) Absolute Neuts (auto) 7.32 10^3/uL H 10^3/uL (1.70-6.50) Absolute Lymphs (auto) 1.56 10^3/uL 10^3/uL (1.00-3.00) Absolute Monos (auto) 0.56 10^3/uL 10^3/uL (0.30-0.80) Absolute Eos (auto) 0.30 10^3/uL 10^3/uL (0.03-0.40) Absolute Basos (auto) 0.03 10^3/uL 10^3/uL (0.02-0.10) Absolute Nucleated RBC 0.00 10^3/uL 10^3/uL (0-0.01) Immature Gran % 0.3 % % (0.0-1.1) Immature Gran # 0.03 10^3/uL 10^3/uL (0.00-0.10) PT INR APTT Sodium 144 mEq/L mEq/L (135-145) Potassium 4.3 mEq/L mEq/L (3.5-5.2) Chloride 106 mEq/L mEq/L (97-110) Carbon Dioxide 20 mEq/l L mEq/l (22-31) Anion Gap 18 mEq/L H mEq/L (8-16) BUN 15 mg/dL mg/dL (7-23) Creatinine 0.9 mg/dL mg/dL (0.6-1.0) Estimated GFR > 60 Glucose 154 mg/dL H mg/dL (70-100) Hemoglobin A1c Estim Average Glucose Calcium 9.5 mg/dL mg/dL (8.5-10.4) Troponin I < 0.012 ng/mL ng/mL (0.000-0.034) Medications Given: Albuterol/Ipratropium (Duoneb) 3 ml IH HS SKYE Stop: 02/02/18 20:59 Last Admin: 08/06/17 19:52 Dose: Not Given Cetirizine HCl (Zyrtec) 10 mg PO HS SKYE Stop: 02/02/18 20:59 Last Admin: 08/06/17 20:54 Dose: 10 mg Diltiazem HCl (Cardizem Immediate Release) 30 mg PO BID SKYE Stop: 02/02/18 20:59 Last Admin: 08/06/17 20:55 Dose: 30 mg Gabapentin (Neurontin) 1,200 mg PO SKYE Stop: 02/02/18 20:59 Last Admin: 08/06/17 20:55 Dose: 1,200 mg Insulin Glargine (Lantus Syringe) 35 units SC BID [facility] Stop: 02/02/18 20:59 Last Admin: 08/06/17 21:10 Dose: 35 units Insulin Human Lispro (Humalog Lispro) 0 unit SC TIDMEAL SKYE PRN Reason: Protocol Stop: 02/02/18 17:59 Last Admin: 08/06/17 18:37 Dose: Not Given Magnesium Oxide (Magnesium Oxide) 400 mg PO BID [facility] Stop: 02/02/18 20:59 Last Admin: 08/06/17 20:55 Dose: 400 mg Morphine Sulfate (Ms Contin/Oramorph) 15 mg PO HS [facility] Stop: 08/16/17 20:59 Last Admin: 08/06/17 20:55 Dose: 15 mg Oxycodone HCl (Oxycodone Ir) 5 mg PO Q6 PRN PRN Reason: Pain, Severe Stop: 08/16/17 19:09 Last Admin: 08/06/17 20:54 Dose: 5 mg Pantoprazole Sodium (Protonix) 40 mg PO BID [facility] Stop: 02/02/18 20:59 Last Admin: 08/06/17 20:54 Dose: 40 mg Potassium Chloride (Klor-Con) 20 meq PO BID [facility] Stop: 02/02/18 20:59 Last Admin: 08/06/17 20:55 Dose: 20 meq Topiramate (Topamax) 100 mg PO HS [facility] Stop: 02/02/18 20:59 Last Admin: 08/06/17 21:10 Dose: 100 mg Zolpidem Tartrate (Ambien) 5 mg PO [facility] Stop: 02/02/18 20:59 Last Admin: 08/06/17 20:54 Dose: 5 mg Discontinued Medications Enoxaparin Sodium (Lovenox) 140 mg SC ONCE ONE Stop: 08/06/17 19:01 Last Admin: 08/06/17 18:30 Dose: 140 mg Heparin Sodium (Porcine) (Heparin Injection) 0 unit IVP ONCE ONE PRN Reason: Protocol Stop: 08/06/17 16:58 Last Admin: 08/06/17 18:34 Dose: Not Given General Initial Vital Signs: Initial Vital Signs Temperature (C) 37.2 C 08/06/17 15:21 Heart Rate 91 08/06/17 15:21 Respiratory Rate 18 08/06/17 15:21 Blood Pressure 160/96 H 08/06/17 15:21 O2 Sat (%) 98 08/06/17 15:21 O2 Delivery Mode Room Air Allergies/Adverse Reactions: butorphanol [From Stadol] Allergy (Severe, Verified 08/10/17 21:25) Hypotension Penicillins Allergy (Severe, Verified 08/10/17 21:25) Other-Enter Comments vancomycin Allergy (Severe, Verified 08/10/17 21:25) Red Man Syndrome azithromycin Allergy (Intermediate, Verified 08/10/17 21:25) Itching bupropion [From Wellbutrin] Allergy (Intermediate, Verified 08/10/17 21:25) Other-Enter Comments cefazolin [From Ancef] Allergy (Intermediate, Verified 08/10/17 21:25) Itching cephalexin [From Keflex] Allergy (Intermediate, Verified 08/10/17 21:25) Itching clindamycin Allergy (Intermediate, Verified 08/10/17 21:25) Other-Enter Comments codeine Allergy (Intermediate, Verified 08/10/17 21:25) Vomiting lisinopril Allergy (Intermediate, Verified 08/10/17 21:25) Other-Enter Comments meperidine [From Demerol] Allergy (Intermediate, Verified 08/10/17 21:25) Vomiting venlafaxine [From Effexor] Allergy (Intermediate, Verified 08/10/17 21:25) Other-Enter Comments Home Medications: Medication Instructions Recorded Cetirizine [ZyrTEC 10 mg (*)] 10 mg PO HS 07/05/17 Fluoxetine HCl [Prozac 40 mg] 40 mg PO DAILY 07/05/17 Furosemide [Lasix 20 MG (*)] 20 - 40 mg PO DAILY PRN 07/05/17 Gabapentin [Neurontin] 1,200 mg PO HS 07/05/17 Insulin Detemir [Levemir] 35 unit SC BID 07/05/17 Insulin Regular Human [Humulin R 2 - 10 unit SC ACHS 07/05/17 100 units/ml (*)] LORazepam [Lorazepam] 0.5 mg PO DAILY PRN MDD may repeat 07/05/17 x1 Levothyroxine [Synthroid 50 mcg 50 mcg PO DAILY06 07/05/17 (*)] Magnesium Oxide [Magnesium] 500 mg PO BID 07/05/17 Pantoprazole Sodium [Protonix 40mg 40 mg PO BID 07/05/17 (*)] Potassium Cl [Klor-Con 20 meq (*)] 20 meq PO BID 07/05/17 Spironolactone [Aldactone 25 MG 25 - 50 mg PO DAILY PRN 07/05/17 (*)] metFORMIN HCL [Metformin HCl] 1,000 mg PO BIDMEAL 07/05/17 morphINE SR [Ms Contin/Oramorph 15 15 mg PO HS 07/05/17 mg (*)] oxyCODONE IR [Oxycodone Ir (*)] 5 mg PO Q4 PRN 07/05/17 Albuterol [Ventolin Hfa Inhaler] 2 puffs IH Q6 PRN 07/06/17 Allopurinol [Allopurinol 300 MG 300 mg PO DAILY 07/06/17 (RX)] Eszopiclone [Lunesta] 3 mg PO HS 07/06/17 Famotidine [Pepcid 20 MG (*)] 20 mg PO DAILY PRN 07/06/17 Gabapentin [Neurontin] 600 mg PO BID PRN 07/06/17 Ipratropium/Albuterol [Duoneb (*)] 3 ml IH HS 07/06/17 Multivitamin with Iron 1 tab PO DAILY 07/06/17 [Multivitamins with Iron] Topiramate [Topamax 100MG (*)] 100 mg PO HS 07/06/17 ZOLMitriptan [Zomig 2.5MG (*)] 2.5 mg PO PRN PRN MDD may repeat x1 07/06/17 morphINE SR [Ms Contin/Oramorph 15 15 mg PO DAILY PRN 07/06/17 mg (*)] Diltiazem [Cardizem 60 MG (*)] 30 mg PO BID 08/06/17 Hydrochlorothiazide [HCTZ (*)] 25 mg PO DAILY 08/06/17 Aspirin EC [Aspirin EC 81 mg (*)] 81 mg PO DAILY 08/11/17 Calcium Carbonate [Tums 500MG (*)] 500 - 1,000 mg PO BID PRN 08/11/17 Sennosides/Docusate Sodium 1 each PO BID PRN 08/11/17 [Senokot-S] Departure - Departure Disposition: [facility] Acute Clinical Impression: Pacemaker malfunction Qualifiers: Encounter type: initial encounter Qualified Code(s): T82.111A - Breakdown ( mechanical) of cardiac pulse generator (battery), initial encounter Condition: Good Report Scribed for: Robyn Conway Report Scribed by: Hattie Bustos Date of Report: 08/06/17 Time of Report: 17:05
--- NOTE | 2017-08-06 15:43 | CPEKG ---
Heart Rate: 83 RR Interval: 723 P-R Interval: 288 QRSD Interval: 134 QT Interval: 416 QTC Interval: 489 P [place]: 44 QRS [place]: -59 T Wave [place]: 67 EKG Severity - ABNORMAL ECG - EKG Impression: ATRIAL-SENSED VENTRICULAR-PACED RHYTHM Electronically Signed By: Robyn Conway 06-Aug-2017 22:42:03
[2017-08-06 15:50] LABS: PLATELET COUNT 233 10^3/uL (150-400)
[2017-08-06 16:37] LABS: INR 0.96 (0.83-1.16)
[2017-08-06] MEDS ORDERED: ONDANSETRON 4 MG/2 ML VIAL IVP PRN (16:55)
[2017-08-06] MEDS ORDERED: ACETAMINOPHEN 325 MG TAB PO PRN (16:55)
[2017-08-06] MEDS ORDERED: ALBUTEROL 3 ML DEYVIAL IH PRN (16:55)
[2017-08-06] MEDS ORDERED: ONDANSETRON DISINTEGRATING 4 MG TAB PO PRN ×2 (16:55→19:10)
[2017-08-06] MEDS ORDERED: HEPARIN 10,000 UNIT/10 ML MDV (1,000 UNIT/ML) IVP PRN (16:57)
[2017-08-06] MEDS ORDERED: HEPARIN 10,000 UNIT/10 ML MDV (1,000 UNIT/ML) IVP ONE (16:57)
[2017-08-06] MEDS ORDERED: D50W 25 GM/50 ML SYR IVP PRN (16:59)
[2017-08-06] MEDS ORDERED: HEPARIN/DEXTROSE 500 ML IV SCH (17:00)
--- NOTE | 2017-08-06 17:28 | PDGENHP ---
History and Physical - Chief Complaint "my hearl feels like sludge" - History of Present Illness 56 yo female with MMP, retired ED nurse, with recent PPM placed on 07/08/17, presents with palpitations and weakness. seen at Dr. Ellsworth's office today and w/ u ordered. CXR c/w right atrial pace lead with improper placement. CXR personally reviewed. She is not actively having chest pain. Trop unremarkable. EKG with paced rhythm personally reviewed. She denies CP, SOB, leg swelling or other. Denies focal weakness, fever, cough, urinary sx's. Since leaving the hospital she has developed pAfib and was started on Coumadin yesterday. Her INR is not therapeutic. PMHx: morbid obesity, sick sinus syndrome, sinus arrest, IDDM, Hypothyroidism, Chronic Pain syndrome, JONNY, HTN, Barrets Esophogus, iron deficiency anemia,GERD , CHF-Diastolic PSHx: tonsillectomy, adenoidectomy, cholecystectomy, hysterectomy, exp lap, first rib resection, total knee arthroplasty SHx: retired nurse, no T/E/I FmHx: JONNY, DM, HTN CXR: per above EKG: per above Labs: reviewed. Trop unremarkable History Information - Allergies/Home Medication List Allergies/Adverse Reactions: butorphanol [From Stadol] Allergy (Severe, Verified 08/06/17 15:19) Hypotension Penicillins Allergy (Severe, Verified 08/06/17 15:19) Other-Enter Comments vancomycin Allergy (Severe, Verified 08/06/17 15:19) Red Man Syndrome azithromycin Allergy (Intermediate, Verified 08/06/17 15:19) Itching bupropion [From Wellbutrin] Allergy (Intermediate, Verified 08/06/17 15:19) Other-Enter Comments cefazolin [From Ancef] Allergy (Intermediate, Verified 08/06/17 15:19) Itching cephalexin [From Keflex] Allergy (Intermediate, Verified 08/06/17 15:19) Itching clindamycin Allergy (Intermediate, Verified 08/06/17 15:19) Other-Enter Comments codeine Allergy (Intermediate, Verified 08/06/17 15:19) Vomiting lisinopril Allergy (Intermediate, Verified 08/06/17 15:19) Other-Enter Comments meperidine [From Demerol] Allergy (Intermediate, Verified 08/06/17 15:19) Vomiting venlafaxine [From Effexor] Allergy (Intermediate, Verified 08/06/17 15:19) Other-Enter Comments Home Medications: Cetirizine [ZyrTEC 10 mg (*)] 10 mg PO HS 07/05/17 [Last Taken 07/07/17] Fluoxetine HCl [Prozac 40 mg] 40 mg PO DAILY 07/05/17 [Last Taken 07/07/17] Furosemide [Lasix 20 MG (*)] 20 - 40 mg PO DAILY PRN 07/05/17 [Last Taken 1 Week Ago ~07/01/17] Gabapentin [Neurontin] 1,200 mg PO HS 07/05/17 [Last Taken 07/07/17] Insulin Detemir [Levemir] 35 unit SC BID 07/05/17 [Last Taken 07/07/17] Insulin Regular Human [Humulin R 100 units/ml (*)] 2 - 10 unit SC ACHS 07/05/17 [Last Taken 07/05/17 21:00] LORazepam [Lorazepam] 0.5 mg PO DAILY PRN MDD may repeat x1 07/05/17 [Last Taken 1 Week Ago ~07/01/17] Levothyroxine [Synthroid 50 mcg (*)] 50 mcg PO DAILY06 07/05/17 [Last Taken 07/24] Magnesium Oxide [Magnesium] 500 mg PO BID 07/05/17 [Last Taken 07/07/17] Ondansetron Odt [Zofran Odt 4 mg (*)] 4 mg PO AC PRN 07/05/17 [Last Taken ] Pantoprazole Sodium [Protonix 40mg (*)] 40 mg PO BID 07/05/17 [Last Taken ] Potassium Cl [Klor-Con 20 meq (*)] 20 meq PO BID 07/05/17 [Last Taken 07/07/17] Spironolactone [Aldactone 25 MG (*)] 25 - 50 mg PO DAILY PRN 07/05/17 [Last Taken 1 Week Ago ~07/01/17] metFORMIN HCL [Metformin HCl] 1,000 mg PO BIDMEAL 07/05/17 [Last Taken 07/07/17] morphINE SR [Ms Contin/Oramorph 15 mg (*)] 15 mg PO HS 07/05/17 [Last Taken 07/24] oxyCODONE IR [Oxycodone Ir (*)] 5 mg PO Q6 PRN 07/05/17 [Last Taken 07/08/17 06: 00] Albuterol [Ventolin Hfa Inhaler] 2 puffs IH Q6 PRN 07/06/17 [Last Taken 07/07/17 ] Allopurinol [Allopurinol 300 MG (RX)] 300 mg PO DAILY 07/06/17 [Last Taken 07/07] Aspirin EC [Aspirin EC 81 mg (*)] 81 mg PO DAILY 07/06/17 [Last Taken 07/07/17 09:00] Aspirin [Aspirin 325 mg (*)] 325 mg PO DAILY PRN 07/06/17 [Last Taken 07/07/17 22:00] Eszopiclone [Lunesta] 3 mg PO HS 07/06/17 [Last Taken 07/07/17] Famotidine [Pepcid 20 MG (*)] 20 mg PO DAILY PRN 07/06/17 [Last Taken 1 Week Ago ~07/01/17] Gabapentin [Neurontin] 600 mg PO BID PRN 07/06/17 [Last Taken 1 Week Ago ~] Ipratropium/Albuterol [Duoneb (*)] 3 ml IH 07/06/17 [Last Taken 07/07/17] Multivitamin with Iron [Multivitamins with Iron] 1 tab PO DAILY 07/06/17 [Last Taken 07/07/17] Topiramate [Topamax 100MG (*)] 100 mg PO HS 07/06/17 [Last Taken 07/07/17] Vitamin B Complex [B Complex] 1 each PO DAILY 07/06/17 [Last Taken 07/07/17] ZOLMitriptan [Zomig 2.5MG (*)] 2.5 mg PO PRN PRN MDD may repeat x1 07/06/17 [ Last Taken 1 Month Ago ~06/07/17] morphINE SR [Ms Contin/Oramorph 15 mg (*)] 15 mg PO DAILY PRN 07/06/17 [Last Taken 07/07/17] Cardizem 08/06/17 [Last Taken Unknown] Coumadin 08/06/17 [Last Taken Unknown] I have personally reviewed and updated: medical history, social history - Social History Smoking Status: Never smoked Review of Systems Review of Systems: ROS: 10pt was reviewed & negative except for what was stated in HPI & below Physical Exam Physical Exam: Temp Pulse Resp BP Pulse Ox 36.6 C 84 16 153/86 H 97 08/06/17 17:12 08/06/17 17:12 08/06/17 17:12 08/06/17 17:12 08/06/17 17:12 Constitutional: no apparent distress, not in pain Eyes: PERRL, EOMI Ears, Nose, Mouth, Throat: moist mucous membranes, hearing normal Cardiovascular: No JVD, No edema Respiratory: no respiratory distress, No reduced air movement Gastrointestinal: No ascites, No guarding, No distension Skin: warm Musculoskeletal: full muscle strength Neurologic: AAOx3 Psychiatric: interacting appropriately, not anxious, not encephalopathic, thought process linear Lymph, Heme, Immunologic: No petechiae Lab Data & Imaging Review 08/06/17 15:40 08/06/17 15:40 WBC 9.80 10^3/uL (3.80-9.50) H 08/06/17 15:40 RBC 4.62 10^6/uL (4.18-5.33) 08/06/17 15:40 Hgb 13.0 g/dL (12.6-16.3) 08/06/17 15:40 Hct 40.5 % (38.0-47.0) 08/06/17 15:40 MCV 87.7 fL (81.5-99.8) 08/06/17 15:40 MCH 28.1 pg (27.9-34.1) 08/06/17 15:40 MCHC 32.1 g/dL (32.4-36.7) L 08/06/17 15:40 RDW 15.6 % (11.5-15.2) H 08/06/17 15:40 Plt Count 233 10^3/uL (150-400) 08/06/17 15:40 MPV 11.8 fL (8.7-11.7) H 08/06/17 15:40 Neut % (Auto) 74.7 % (39.3-74.2) H 08/06/17 15:40 Lymph % (Auto) 15.9 % (15.0-45.0) 08/06/17 15:40 E[place] % (Auto) 5.7 % (4.5-13.0) 08/06/17 15:40 Eos % (Auto) 3.1 % (0.6-7.6) 08/06/17 15:40 Baso % (Auto) 0.3 % (0.3-1.7) 08/06/17 15:40 Nucleat RBC Rel Count 0.0 % (0.0-0.2) 08/06/17 15:40 Absolute Neuts (auto) 7.32 10^3/uL (1.70-6.50) H 08/06/17 15:40 Absolute Lymphs (auto) 1.56 10^3/uL (1.00-3.00) 08/06/17 15:40 Absolute Monos (auto) 0.56 10^3/uL (0.30-0.80) 08/06/17 15:40 Absolute Eos (auto) 0.30 10^3/uL (0.03-0.40) 08/06/17 15:40 Absolute Basos (auto) 0.03 10^3/uL (0.02-0.10) 08/06/17 15:40 Absolute Nucleated RBC 0.00 10^3/uL (0-0.01) 08/06/17 15:40 Immature Gran % 0.3 % (0.0-1.1) 08/06/17 15:40 Immature Gran # 0.03 10^3/uL (0.00-0.10) 08/06/17 15:40 PT 13.0 SEC (12.0-15.0) 08/06/17 16:00 INR 0.96 (0.83-1.16) 08/06/17 16:00 APTT 27.3 SEC (23.0-38.0) 08/06/17 16:00 Sodium 144 mEq/L (135-145) 08/06/17 15:40 Potassium 4.3 mEq/L (3.5-5.2) 08/06/17 15:40 Chloride 106 mEq/L (97-110) 08/06/17 15:40 Carbon Dioxide 20 mEq/l (22-31) L 08/06/17 15:40 Anion Gap 18 mEq/L (8-16) H 08/06/17 15:40 BUN 15 mg/dL (7-23) 08/06/17 15:40 Creatinine 0.9 mg/dL (0.6-1.0) 08/06/17 15:40 Estimated GFR > 60 08/06/17 15:40 Glucose 154 mg/dL (70-100) H 08/06/17 15:40 Calcium 9.5 mg/dL (8.5-10.4) 08/06/17 15:40 Troponin I < 0.012 ng/mL (0.000-0.034) 08/06/17 15:40 Assessment & Plan Assessment: #Pacemaker malfunction #pAfib #Morbid Obesity #IDDM #chronic pain syndrome with opioid dependance #HTN Plan: Observation Cards to consult likely revision tomorrow Heparin for AC Home meds once med list is available PCU NPO at midnight Telemetry ISS Full code, confirmed today
[2017-08-06] MEDS ORDERED: INSULIN LISPRO 100 UNIT/ML SC SCH (18:00)
--- NOTE | 2017-08-06 18:53 | PDCARPN ---
Cardiology Progress Note Chief Complaint: Patient reports occasional episodes of palpitations. Assessment/Plan: Assessment: Please see Dr. Ellsworth is office note dated 08/06/2017 for official cardiology consultation. 56-year-old female with past medical history that includes morbid obesity, JONNY (CPAP), diabetes, hypothyroidism, GERD, chronic pain , paroxysmal atrial fibrillation. Recent hospitalization in the beginning of July for third-degree heart block. Ppm implantation done , complicated by pneumothorax. Seen by Dr. Ellsworth today with complaints of palpitations , reporting episodes of lightheadedness, presyncope, palpitations. Interrogation showed atrial lead is not capturing. Admitted directly through emergency department , chest x-ray confirming atrial lead dislodgement. Device check also done by [employer] representation showing failure to capture on atrial lead. Patient currently denies of any chest pain or pressure. Denies of any further palpitations. Continuous cardiac monitoring showing sinus rhythm , with occasional ventricular paced beat. No other malignant arrhythmias noted. Plan: 1. History of complete heart block: Status post ppm implantation July of this year, patient reporting episodes of lightheadedness and near-syncope. Device check showing failure to capture of atrial leave , chest x-ray confirming dislodgement. Will plan for patient to be NPO after midnight, with plans of atrial lead revision to be done in in a.m.. Risks and benefits were explained to the patient, she verbalizes understanding and is wanting to proceed. Patient reports allergies to cephazolin, reporting itchiness, but tolerated it well during her procedure implantation July , with IV Pepcid. Which has been ordered preoperatively for tomorrow's procedure. [employer] rep notified of potential lead revision for tomorrow. Continuous cardiac monitoring tonight. 2. Paroxysmal atrial fibrillation: Recent device check showing episodes of atrial fibrillation that last less than 20 seconds long. Patient reports she has never started anticoagulation until last evening, taking her 1st dose of warfarin at that time. She is currently in sinus rhythm with occasional ventricular paced beat. Laboratory studies showing INR 0.96. Will give her 1 dose of Lovenox this evening at 7:00 p.m., and hold in preparation for procedure for tomorrow. Patient with significant chads Vasc score of 4 ( history of congestive heart failure, hypertension, diabetes, and female). Post procedure, will plan on resuming her on warfarin therapy, 3. JONNY: Ordered patient may use home CPAP machine during hospitalization. 4. DM: Managed by hospitalist services. Home insulin ordered. Will hold a.m. dose preparation for NPO status preparation procedure. If patient receives contrast tomorrow for procedure , her metformin will need to be hold for 48 hours. 5. Hypertension: Blood pressure mildly elevated at this time at 153/86. Will resume patient's home BP medications once reconciliation has been done by pharmacy 6. Obesity: Discussed with patient importance of weight loss. 7. Chronic pain syndrome: Management per hospitalist services. 8. Hypothyroidism: Resume patient's home Synthroid once reconciliation has been done by pharmacy 08/06/17 18:52 Subjective: Denies of any chest pressure or pain. Reports no orthopnea, lightheadedness, near-syncope, or syncopal events. Reviewed/Discussed With: hospitalist (Dr Bernabe), other (Dr Ellsworth and Dr Stratton) Objective: Vital Signs (8 Hrs) Temp Pulse Resp BP Pulse Ox 08/06/17 17:12 36.6 C 84 16 153/86 H 97 08/06/17 16:50 74 16 118/65 97 Intake/Output (24 Hrs) 08/05/17 08/06/17 08/07/17 05:59 05:59 05:59 Other: Weight 142.7 kg Number of Voids 1 Toilet 1 Result Diagrams: 08/06/17 15:40 08/06/17 15:40 - Physical Exam Constitutional: no apparent distress, obese Ears, Nose, Mouth, Throat: moist mucous membranes Cardiovascular: regular rate and rhythm, no murmurs, no rubs, no gallops, pulses symmetric bilat, No jugular vein distention, No carotid bruit Peripheral Pulses: 1+: dorsalis-pedis (R), dorsalis-pedis (L), 2+: carotid (R), carotid (L) Respiratory: other (Lungs are clear but diminished in bases bilateral, no rhonchi, rales, or wheezing noted.) Gastrointestinal: normoactive bowel sounds Skin: warm Neurologic: AAOx3 Psychiatric: cooperative, interactive, following commands ICD10 Worksheet Patient Problems: Problems Problem Status Onset Bradycardia Acute Pacemaker malfunction Acute
[2017-08-06] MEDS ORDERED: ENOXAPARIN 150 MG/ML SYR SC ONE (19:00)
[2017-08-06] MEDS ORDERED: ALBUTEROL 60 PUFFS/8 GM MDI IH PRN (19:10)
[2017-08-06] MEDS ORDERED: FAMOTIDINE 20 MG TAB PO PRN (19:10)
[2017-08-06] MEDS ORDERED: morphINE SR 15 MG TAB PO PRN (19:10)
[2017-08-06] MEDS ORDERED: LORazepam 0.5 MG TAB PO PRN (19:10)
[2017-08-06] MEDS ORDERED: GABAPENTIN 300 MG CAP PO PRN (19:30)
[2017-08-06] MEDS: IPRATROPIUM/ALBUTEROL 3 ML DEYVIAL IH SCH (19:52)
[2017-08-06] MEDS: oxyCODONE IR 5 MG TAB PO PRN (20:54)
[2017-08-06] MEDS: ZOLPIDEM TARTRATE 5 MG TAB PO SCH (20:54)
[2017-08-06] MEDS: PANTOPRAZOLE SODIUM 40 MG TAB PO SCH (20:54)
[2017-08-06] MEDS: CETIRIZINE 10 MG TAB PO SCH (20:54)
[2017-08-06] MEDS: DILTIAZEM 30 MG TAB PO SCH (20:55)
[2017-08-06] MEDS: POTASSIUM CL 20 MEQ TAB PO SCH (20:55)
[2017-08-06] MEDS: GABAPENTIN 400 MG CAP PO SCH (20:55)
[2017-08-06] MEDS: MAGNESIUM OXIDE 400 MG TAB PO SCH (20:55)
[2017-08-06] MEDS: morphINE SR 15 MG TAB PO SCH (20:55)
[2017-08-06] MEDS ORDERED: NON-FORMULARY NEW DRUG (Insulin Detemir [Levemir] 35 UNIT) SC SCH (21:00)
[2017-08-06] MEDS: INSULIN GLARGINE 100 UNITS/ML UNIT SC SCH (21:10)
[2017-08-06] MEDS: TOPIRAMATE 100 MG TAB PO SCH (21:10)
[2017-08-07 04:39] LABS: PLATELET COUNT 210 10^3/uL (150-400)
[2017-08-07 04:46] LABS: INR 1.08 (0.83-1.16); PROTIME(PATIENT) 14.2 SEC (12.0-15.0)
[2017-08-07] MEDS ORDERED: NS 1,000 ML IV ONE (06:00)
[2017-08-07] MEDS ORDERED: FAMOTIDINE 20 MG/NACL 50 ML IV ONE (06:00)
[2017-08-07] MEDS ORDERED: ceFAZolin 2 GM/SWFI 2 GM/20 ML SYR IVP ONE (06:00)
[2017-08-07] MEDS ORDERED: diphenhydrAMINE 25 MG CAP PO ONE (06:00)
[2017-08-07] MEDS ORDERED: BACITRACIN IRRIGATION/NS 50,000 UNITS/1,000 ML BTL IRR ONE (06:00)
[2017-08-07] MEDS: LEVOTHYROXINE 50 MCG TAB PO SCH (06:42)
--- NOTE | 2017-08-07 10:21 | ASMTCASEMG ---
Living Arrangements What is your living Answers: With Spouse arrangement? Who do you live with? Type Of Residence What kind of residence do Answers: House you live in? Discharge Plan Comments Coordination Status Comments Notes: Discussed pts case in morning rounds. Pt is a 56 y/o female admitted for a pacemaker malfunction. Pt will most likely d/c independent when medically stable. No therapies ordered at this time. CM available for changes. Plan: Independent Date Signed: 08/07/2017 10:20 AM Electronically Signed By:BUNNY Zamudio
[2017-08-07] MEDS: INSULIN GLARGINE 100 UNITS/ML UNIT SC SCH ×2 (10:25→21:34)
[2017-08-07] MEDS: FLUoxetine 20 MG CAP PO SCH (10:27)
[2017-08-07] MEDS: POTASSIUM CL 20 MEQ TAB PO SCH ×2 (10:27→21:20)
[2017-08-07] MEDS: MULTIVITAMINS 1 EACH TAB PO SCH (10:28)
[2017-08-07] MEDS: VITAMIN B COMPLEX 1 EA CAP/TAB PO SCH (10:28)
[2017-08-07] MEDS: ALLOPURINOL 300 MG TAB PO SCH (10:28)
[2017-08-07] MEDS: PANTOPRAZOLE SODIUM 40 MG TAB PO SCH ×2 (10:28→21:19)
[2017-08-07] MEDS: HYDROCHLOROTHIAZIDE 25 MG TAB PO SCH (10:29)
[2017-08-07] MEDS: DILTIAZEM 30 MG TAB PO SCH ×2 (10:29→21:19)
[2017-08-07] MEDS: MAGNESIUM OXIDE 400 MG TAB PO SCH ×2 (10:29→21:20)
--- NOTE | 2017-08-07 13:10 | HOSPPROG ---
Hospitalist Progress Note Assessment/Plan: DIAGNOSES: -patient malfunction with atrial lead detached from its enter atrial site, some bradycardias -AFib, did have 1 bout of rapid AFib briefly overnight -diabetes, sugars in excellent control so far on Lantus and oral meds -hypertension currently well controlled -chronic pain syndrome with chronic use of daily prescribed narcotic I reviewed the patient's condition, progress and care plan today with Robert Vang of cardiology Also visit the patient on multidisciplinary rounds PLANS: She will be going to the EP lab today for replacement of her pacer lead. Will recheck with her after that. Will continue to follow blood pressures heart rate blood sugars closely. Will presumably need to be watched overnight at least for monitoring of her lead and its function and to ensure no bleeding. Recheck hemoglobin in the morning follow for any problems with the wound SUBJECTIVE: Feels well this morning, no chest pain, no palpitations, no shortness of breath or lightheadedness OBJECTIVE Vitals reviewed: Intermittent brief tachycardias and bradycardias otherwise stable without fever [place], my review: Primarily paced with some for very brief bradycardias and some very brief AFib Exam: alert oriented skin warm dry color ok resps not labored lungs clear BSs heart regular abd soft nondistended nontender, bowel sounds present limbs warm, no edema iv site ok Blood sugars in excellent range Other lab stable Objective: Vital Signs Temp Pulse Resp BP Pulse Ox 36.8 C 77 18 108/61 96 08/07/17 11:34 08/07/17 11:34 08/07/17 11:34 08/07/17 11:34 08/07/17 11:34 Laboratory Results 08/07/17 03:15 08/07/17 03:15 08/06/17 08/07/17 08/08/17 06:59 06:59 06:59 Output Total 100 Balance -100 PT 14.2 SEC (12.0-15.0) 08/07/17 03:15 INR 1.08 (0.83-1.16) 08/07/17 03:15 ICD10 Worksheet Patient Problems: Problems Problem Status Onset Pacemaker malfunction Acute Bradycardia Acute
[2017-08-07] MEDS ORDERED: FAMOTIDINE 20 MG/NACL/50 ML BAG IV ONE (13:25)
--- NOTE | 2017-08-07 14:06 | PDANEPAE ---
ANE History of Present Illness 56 year old female w/ multiple medication allergies, DM, Morbid Obesity, JONNY ( on CPAP), HTN and chronic pain (several opioid prescriptions) presents for revision of pacemaker leads. ANE Past Medical History - Cardiovascular History Hx Hypertension: Yes Hx Arrhythmias: Yes Hx Chest Pain: No Hx Coronary Artery / Peripheral Vascular Disease: No Hx CHF / Valvular Disease: No Hx Palpitations: No Cardiovascular History Comment: Recent pacemaker placement now needing a lead revision/repositioning. - Pulmonary History Hx COPD: No Hx Asthma/Reactive Airway Disease: No Hx Recent Upper Respiratory Infection: No Hx Oxygen in Use at Home: Yes O2 in Use at Home (L/minute): 2 Hx Sleep Apnea: Yes - Endocrine History Hx Diabetes: Yes Hypothyroid: No Hyperthyroid: No Obesity: yes, severe - Renal History Renal History Comment: Stones - Liver History Hx Hepatic Disorders: No - Neurological & Psychiatric Hx Hx Neurological and Psychiatric Disorders: No - Cancer History Hx Cancer: No - Congenital Disorder History Hx Congenital Disorders: No - GI History Hx Gastrointestinal Disorders: No - Chronic Pain History Chronic Pain: Yes ANE Review of Systems Review of Systems: - Exercise capacity Exercise capacity: <4 METS - Pacemaker Pacemaker Cloth [employer]: [employer] Pacemaker Model: [id number] Pacemaker Mode: DDD ANE Patient History - Allergies Allergies/Adverse Reactions: butorphanol [From Stadol] Allergy (Severe, Verified 08/06/17 15:19) Hypotension Penicillins Allergy (Severe, Verified 08/06/17 15:19) Other-Enter Comments vancomycin Allergy (Severe, Verified 08/06/17 15:19) Red Man Syndrome azithromycin Allergy (Intermediate, Verified 08/06/17 15:19) Itching bupropion [From Wellbutrin] Allergy (Intermediate, Verified 08/06/17 15:19) Other-Enter Comments cefazolin [From Ancef] Allergy (Intermediate, Verified 08/06/17 15:19) Itching cephalexin [From Keflex] Allergy (Intermediate, Verified 08/06/17 15:19) Itching clindamycin Allergy (Intermediate, Verified 08/06/17 15:19) Other-Enter Comments codeine Allergy (Intermediate, Verified 08/06/17 15:19) Vomiting lisinopril Allergy (Intermediate, Verified 08/06/17 15:19) Other-Enter Comments meperidine [From Demerol] Allergy (Intermediate, Verified 08/06/17 15:19) Vomiting venlafaxine [From Effexor] Allergy (Intermediate, Verified 08/06/17 15:19) Other-Enter Comments - Home Medications Home medications: home medication list seen and reviewed Home Medications: Cetirizine [ZyrTEC 10 mg (*)] 10 mg PO HS 07/05/17 [Last Taken 08/05/17] Fluoxetine HCl [Prozac 40 mg] 40 mg PO DAILY 07/05/17 [Last Taken 08/06/17] Furosemide [Lasix 20 MG (*)] 20 - 40 mg PO DAILY PRN 07/05/17 [Last Taken 1 Month Ago ~07/06/17] Gabapentin [Neurontin] 1,200 mg PO HS 07/05/17 [Last Taken 08/05/17] Insulin Detemir [Levemir] 35 unit SC BID 07/05/17 [Last Taken 08/06/17 09:00] Insulin Regular Human [Humulin R 100 units/ml (*)] 2 - 10 unit SC ACHS 07/05/17 [Last Taken 08/05/17] LORazepam [Lorazepam] 0.5 mg PO DAILY PRN MDD may repeat x1 07/05/17 [Last Taken 4 Days Ago ~08/02/17] Levothyroxine [Synthroid 50 mcg (*)] 50 mcg PO DAILY06 07/05/17 [Last Taken ] Magnesium Oxide [Magnesium] 500 mg PO BID 07/05/17 [Last Taken 08/05/17] Ondansetron Odt [Zofran Odt 4 mg (*)] 4 mg PO AC PRN 07/05/17 [Last Taken 2 Days Ago ~08/04/17] Pantoprazole Sodium [Protonix 40mg (*)] 40 mg PO BID 07/05/17 [Last Taken 09:00] Potassium Cl [Klor-Con 20 meq (*)] 20 meq PO BID 07/05/17 [Last Taken 08/06/17 09:00] Spironolactone [Aldactone 25 MG (*)] 25 - 50 mg PO DAILY PRN 07/05/17 [Last Taken 3 Days Ago ~08/03/17] metFORMIN HCL [Metformin HCl] 1,000 mg PO BIDMEAL 07/05/17 [Last Taken 08/06/17 09:00] morphINE SR [Ms Contin/Oramorph 15 mg (*)] 15 mg PO HS 07/05/17 [Last Taken ] oxyCODONE IR [Oxycodone Ir (*)] 5 mg PO Q6 PRN 07/05/17 [Last Taken 08/05/17 21: 00] Albuterol [Ventolin Hfa Inhaler] 2 puffs IH Q6 PRN 07/06/17 [Last Taken 3 Days Ago ~08/03/17] Allopurinol [Allopurinol 300 MG (RX)] 300 mg PO DAILY 07/06/17 [Last Taken 08/06] Eszopiclone [Lunesta] 3 mg PO HS 07/06/17 [Last Taken 08/05/17] Famotidine [Pepcid 20 MG (*)] 20 mg PO DAILY PRN 07/06/17 [Last Taken 2 Weeks Ago ~07/23/17] Gabapentin [Neurontin] 600 mg PO BID PRN 07/06/17 [Last Taken 08/05/17] Ipratropium/Albuterol [Duoneb (*)] 3 ml IH HS 07/06/17 [Last Taken 08/05/17] Multivitamin with Iron [Multivitamins with Iron] 1 tab PO DAILY 07/06/17 [Last Taken 08/05/17] Topiramate [Topamax 100MG (*)] 100 mg PO HS 07/06/17 [Last Taken 08/05/17] Vitamin B Complex [B Complex] 1 each PO DAILY 07/06/17 [Last Taken 08/05/17] ZOLMitriptan [Zomig 2.5MG (*)] 2.5 mg PO PRN PRN MDD may repeat x1 07/06/17 [ Last Taken 1 Month Ago ~06/07/17] morphINE SR [Ms Contin/Oramorph 15 mg (*)] 15 mg PO DAILY PRN 07/06/17 [Last Taken 08/05/17 16:00] Diltiazem [Cardizem 60 MG (*)] 30 mg PO BID 08/06/17 [Last Taken 08/06/17 09:00] Hydrochlorothiazide [HCTZ (*)] 25 mg PO DAILY 08/06/17 [Last Taken 08/06/17] Warfarin Sodium [Coumadin 5MG (*)] 5 mg PO DAILY16 08/06/17 [Last Taken 08/05/17 ] - NPO status NPO Status: no food or drink >8 hours - Smoking Hx Smoking Status: Never smoked ANE Labs/Vital Signs - Labs Result Diagrams: 08/07/17 03:15 08/07/17 03:15 - Vital Signs Vital Signs: reviewed preoperatively; see RN documention for details Blood Pressure: 108/61 Heart Rate: 77 Respiratory Rate: 18 O2 Sat (%): 96 Height: 162.56 cm Weight: 142.7 kg ANE Physical Exam - Airway Neck exam: FROM Mallampati Score: Class 4 Mouth exam: normal dental/mouth exam, small mouth opening Mouth image: 1 - return agent airport - Pulmonary Pulmonary: no respiratory distress - Cardiovascular Cardiovascular: regular rate and rhythym - ASA Status ASA Status: IV ANE Anesthesia Plan Anesthesia Plan: general endotracheal anesthesia, GA w LMA Total IV Anesthesia: Yes
[2017-08-07] MEDS ORDERED: MIDAZOLAM 2 MG/2 ML VIAL IVP ONE (14:28)
[2017-08-07] MEDS ORDERED: fentaNYL 100 MCG/2 ML INJ ONE ×2 (14:33→16:28)
[2017-08-07] MEDS ORDERED: PROPOFOL/EMULSION 500 MG/50 ML BOTTLE IV ONE ×3 (14:33→15:42)
[2017-08-07] MEDS ORDERED: ROCURONIUM 50 MG/5 ML VIAL ONE ×2 (14:35→15:24)
[2017-08-07] MEDS ORDERED: ONDANSETRON 4 MG/2 ML VIAL ONE (14:36)
[2017-08-07] MEDS ORDERED: DEXAMETHASONE 4 MG/ML VIAL ONE (14:36)
[2017-08-07] MEDS ORDERED: LIDO/EPI 1% **for epidural** 30 ML SDV ONE (15:04)
[2017-08-07] MEDS ORDERED: BUPIVACAINE 0.5% 30 ML SDV ONE (15:04)
[2017-08-07] MEDS ORDERED: LIDOCAINE 1% 300 MG/30 ML SDV ONE (15:04)
[2017-08-07] MEDS ORDERED: SUGAMMADEX SODIUM 200 MG/2 ML VIAL IVP ONE (15:58)
[2017-08-07] MEDS ORDERED: fentaNYL 100 MCG/2 ML INJ IVP PRN (16:18)
[2017-08-07] MEDS ORDERED: ONDANSETRON 4 MG/2 ML VIAL IVP PRN (16:18)
[2017-08-07] MEDS ORDERED: NALOXONE HCL 0.4 MG/ML INJ IVP PRN (16:18)
[2017-08-07] MEDS ORDERED: NS 500 ML IV PRN (16:18)
[2017-08-07] MEDS ORDERED: PHENYLEPHRINE HCL 100 MCG/ML SYR IVP PRN (16:18)
[2017-08-07] MEDS ORDERED: PROPOFOL 200 MG/20 ML VIAL ONE (16:26)
--- NOTE | 2017-08-07 17:02 | CPEKG ---
Heart Rate: 67 RR Interval: 896 P-R Interval: 162 QRSD Interval: 124 QT Interval: 456 QTC Interval: 482 P [place]: 58 QRS [place]: 44 T Wave [place]: 15 EKG Severity - ABNORMAL ECG - EKG Impression: ATRIAL-PACED COMPLEXES EKG Impression: LEFT BUNDLE BRANCH BLOCK Electronically Signed By: Guido Jimenez 09-Aug-2017 09:00:08
--- NOTE | 2017-08-07 17:16 | EPPROC ---
Electrophysiology Procedure Note: PROCEDURE PERFORMED: 1. AV Pacemaker generator change INDICATION: Atrial lead dislodgement PROCEDURE NOTE: Patient presented to the cardiac catheterization laboratory in a fasting, postabsorptive state. General anesthesia administered. The left infraclavicular area was prepped and draped in the usual sterile fashion. Lidocaine plus bupivacaine was used for local anesthesia. Using a combination of blunt and sharp dissection and electrocautery, the dissection was carried down to the prepectoral fascia and the existing pacemaker pocket was opened. The pacemaker generator was disconnected from the leads and the lead thresholds and impedance were checked. Atrial lead suture cut, stylet placed. RA lead respositioned. Lead sutured to the underlying tissue. The pacemaker pocket was copiously irrigated with antibiotic solution. The pocket was again inspected for any bleeding. The leads were attached to the pacemaker securely. The pacemaker was inserted into the pocket and secured in place with a nonabsorbable suture. The pacemaker pocket was closed in 3 layers with absorbable monocryl sutures. Appropriate dressing was applied. The patient left the cardiac catheterization laboratory in stable condition. Serial Numbers: 1. Device [employer]ik Edora 8 SN [id number] 2. Atrial Lead [employer] Solia S45 SN [id number] 3. Ventricular Lead [employer] Solia S53 SN [id number] Stimulation Thresholds & Impedance Measurements: 1. Atrial Lead 3.3mV, 0.6@0.4ms, 448Ohms 2. Ventricular Lead 10.8mV, 0.7@0.4ms, 546Ohms Raghavendra Pacing Parameters 1. Pacing mode DDD CLS 2. Lower rate 60 3. Upper tracking rate 130 Upper sensor rate 130 Patient Problems: Problems Problem Status Onset Pacemaker malfunction Acute Bradycardia Acute
[2017-08-07] MEDS: oxyCODONE IR 5 MG TAB PO PRN (18:21)
[2017-08-07] MEDS: ZOLPIDEM TARTRATE 5 MG TAB PO SCH (21:19)
[2017-08-07] MEDS: morphINE SR 15 MG TAB PO SCH (21:19)
[2017-08-07] MEDS: TOPIRAMATE 100 MG TAB PO SCH (21:20)
[2017-08-07] MEDS: CETIRIZINE 10 MG TAB PO SCH (21:20)
[2017-08-07] MEDS: GABAPENTIN 400 MG CAP PO SCH (21:20)
[2017-08-07] MEDS: IPRATROPIUM/ALBUTEROL 3 ML DEYVIAL IH SCH (21:24)
[2017-08-08] MEDS: oxyCODONE IR 5 MG TAB PO PRN ×2 (00:25→10:51)
[2017-08-08 03:40] VITALS: RESP 18; O2SAT 96
[2017-08-08 04:26] LABS: PLATELET COUNT 216 10^3/uL (150-400)
[2017-08-08] MEDS: LEVOTHYROXINE 50 MCG TAB PO SCH (07:01)
[2017-08-08 08:28] VITALS: TEMP 97.9
--- NOTE | 2017-08-08 08:38 | PDMN ---
Medical Necessity Medical necessity: change to IP; los>2mn for ongoing eval and rx, requiring continued cardiac monitoring overnight s/p AV PPM generator change for atrial lead displacement; comorbid afib, DM, HTN, and chronic pain syndrome; per order and progress note 08/07/17
--- NOTE | 2017-08-08 09:03 | CPEKG ---
Heart Rate: 78 RR Interval: 769 P-R Interval: 156 QRSD Interval: 124 QT Interval: 412 QTC Interval: 470 P [place]: 61 QRS [place]: 43 T Wave [place]: 250 EKG Severity - ABNORMAL ECG - EKG Impression: SINUS RHYTHM EKG Impression: LEFT BUNDLE BRANCH BLOCK Electronically Signed By: Guido Jimenez 09-Aug-2017 09:00:02
[2017-08-08] MEDS: MAGNESIUM OXIDE 400 MG TAB PO SCH (09:11)
[2017-08-08] MEDS: HYDROCHLOROTHIAZIDE 25 MG TAB PO SCH (09:11)
[2017-08-08] MEDS: ALLOPURINOL 300 MG TAB PO SCH (09:11)
[2017-08-08] MEDS: VITAMIN B COMPLEX 1 EA CAP/TAB PO SCH (09:11)
[2017-08-08] MEDS: DILTIAZEM 30 MG TAB PO SCH (09:12)
[2017-08-08] MEDS: MULTIVITAMINS 1 EACH TAB PO SCH (09:12)
[2017-08-08] MEDS: PANTOPRAZOLE SODIUM 40 MG TAB PO SCH (09:13)
[2017-08-08] MEDS: POTASSIUM CL 20 MEQ TAB PO SCH (09:13)
[2017-08-08] MEDS: FLUoxetine 20 MG CAP PO SCH (09:13)
[2017-08-08 09:14] VITALS: BP 126/68; PULSE 74
[2017-08-08] MEDS: INSULIN GLARGINE 100 UNITS/ML UNIT SC SCH (09:14)
--- NOTE | 2017-08-08 11:58 | PDCARPN ---
Cardiology Progress Note Chief Complaint: Patient reports she would like to go home. Reports mild pain at incisional site of pacemaker. Assessment/Plan: Assessment: 56-year-old female with past medical history that includes morbid obesity, JONNY (CPAP), diabetes, hypothyroidism, GERD, chronic pain , paroxysmal atrial fibrillation. Recent hospitalization in the beginning of July for third- degree heart block. PPM implantation done , complicated by pneumothorax. Seen by Dr. Ellsworth on 08/06/2017 with complaints of palpitations , reporting episodes of lightheadedness, presyncope, palpitations. Interrogation showed atrial lead is not capturing. Admitted that day through emergency department , chest x-ray confirming atrial lead dislodgement. Device check also done by [employer] representation showing failure to capture on atrial lead. Lead revision done yesterday by Dr. Ellsworth electrophysiology, no complications. Today: Patient is 1 day postop from atrial lead revision. Continues cardiac monitoring showing atrial paced with intrinsic ventricular rhythm. Patient reports no further episodes palpitations chest pain, shortness for breath. Chest x-ray this showing no acute cardiopulmonary process, no delayed pneumothorax. Studies today showing H&H mildly down at 12 in 37 comma normal electrolyte renal function comma BMP noted elevated at 453. Patient reports mild pain at his pacemaker insertion site, but no signs of infection, redness, or drainage. Plan: 1. History of complete heart block: Status post ppm implantation July of this year, patient reporting episodes of lightheadedness and near-syncope. Device check showing failure to capture of atrial leave , chest x-ray confirming dislodgement. Lead revision done it yesterday to right atrial lead. Today Device check and chest x-ray confirm proper placement. No delayed pneumothorax. Patient has been scheduled for one-week follow-up for device and wound check in our office. 2. Paroxysmal atrial fibrillation: Recent device check showing episodes of atrial fibrillation that last less than 20 seconds long. History of atrial fibrillation discussed with Dr. Ellsworth, does not want patient on warfarin therapy , feeling that atrial fibrillation was probably due to atrial lead dislodgement. He has recommended that he stop her warfarin therapy, continue on aspirin therapy. She will also continue on Cardizem until she sees Dr. Ellsworth in office. Will continue monitoring for atrial fibrillation via pacemaker. If proven to have a another episode, then reconsideration of starting her on anticoagulation therapy will be done at that time. 3. JONNY: Ordered patient may use home CPAP machine during hospitalization. 4. DM: Managed by hospitalist services. Home dosage of diabetic medication regime has been resumed. Patient did not receive any contrast during her procedure, her metformin has been resumed. 5. Hypertension: Blood pressure appears to be out of the common current medications. No changes at this time. 6. Obesity: Discussed with patient importance of weight loss. 7. Chronic pain syndrome: Management per hospitalist services. 8. Hypothyroidism: Resume patient's home Synthroid once reconciliation has been done by pharmacy Patient to be discharged home today, post pacemaker discharge instructions went over with patient, including activity restrictions, monitoring for signs of infection, and follow-up appointments. At the time of discharge patient verbalizes understanding all instructions. She has been told that if any problems or concerns, post discharge she is notify our office or return to the hospital. 08/08/17 11:56 Subjective: She denies of any palpitations, lightheadedness, chest pain, shortness of breath , orthopnea, PND, edema, near-syncope or syncopal events. Reviewed/Discussed With: hospitalist (Dr Connors), other (Dr Ellsworth) Objective: Vital Signs (8 Hrs) Temp Pulse Resp BP Pulse Ox 08/08/17 09:12 74 126/68 H 08/08/17 08:00 36.6 C 73 18 115/72 96 Intake/Output (24 Hrs) 08/07/17 08/08/17 08/09/17 05:59 05:59 05:59 Intake Total 250 Balance 250 Intake: Oral (ml) 250 Other: Intake Quantity Yes Sufficient Number of Voids Toilet 2 Result Diagrams: 08/08/17 03:06 08/08/17 03:06 - Physical Exam Constitutional: no apparent distress, obese Ears, Nose, Mouth, Throat: moist mucous membranes Cardiovascular: regular rate and rhythm, no murmurs, no rubs, no gallops, pulses symmetric bilat, No carotid bruit Peripheral Pulses: 1+: dorsalis-pedis (R), dorsalis-pedis (L), 2+: carotid (R), carotid (L) Respiratory: other (Lungs are clear but diminished in bases bilateral, no rhonchi, rales or wheezing noted.) Gastrointestinal: normoactive bowel sounds Skin: warm, other (EF pacemaker incision, left chest, incision intact with Steri -Strips, no redness, swelling, drainage, ecchymosis or hematoma noted. Dressing change done at this time.), No no edema (+1 peripheral edema bilateral extremities) Neurologic: AAOx3 Psychiatric: cooperative, following commands ICD10 Worksheet Patient Problems: Problems Problem Status Onset Bradycardia Acute Pacemaker malfunction Acute
--- NOTE | 2017-08-08 12:39 | ASDISCHSUM ---
Discharge Information Plan Status:Home with No Needs Medically Cleared to Leave:08/07/2017 Discharge Date:08/08/2017 11:47 AM CM D/C Disposition: ADT D/C Disposition:Home, Routine, Self-Care Projected Discharge Date:08/08/2017 12:00 AM Transportation at D/C: Discharge Delay Reason: Follow-Up Date:08/08/2017 12:00 AM Discharge Slot: Final Diagnosis: Placement Information Patient Contact Information Contact Name:NERISSAALEXI Relationship: Address: Home Phone: Work Phone: City: Alternate Phone: State/Zip Code: Email: Financial Information Financial Class:MD Primary Plan Desc:[employer] [place] Primary Plan Number:[id number] Secondary Plan Desc: Secondary Plan Number: Assessment Information [facility] Initial CM Assessment Living Arrangements What is your living Answers: With Spouse arrangement? Who do you live with? Type Of Residence What kind of residence do Answers: House you live in? Discharge Plan Comments Coordination Status Comments Notes: Discussed pts case in morning rounds. Pt is a 56 y/o female admitted for a pacemaker malfunction. Pt will most likely d/c independent when medically stable. No therapies ordered at this time. CM available for changes. Plan: Independent Date Signed: 08/07/2017 10:20 AM Electronically Signed By:BUNNY Zamudio Intervention Information
--- NOTE | 2017-08-08 13:53 | PDDCSUM ---
Discharge Summary Discharge Summary: DISCHARGE DIAGNOSES: -pacemaker malfunction with atrial lead detached from its intraatrial site leading to symptomatic bradycardia -AFib, did have 1 bout of rapid AFib briefly overnight; felt to be due to the detached atrial pacemaker lead -diabetes, sugars in excellent control so far on Lantus and oral meds -hypertension currently well controlled -chronic pain syndrome with chronic use of daily prescribed narcotic CONSULTANTS: Dr. Dev Ellsworth PROCEDURES: Manipulation of right atrial pacemaker lead with good result, normal expected impedance and pacing and good anatomic position HOSPITAL COURSE SUMMARY: This patient has a pacemaker for previous history of bradycardia with symptoms. She came in at this time having as some chest symptoms of palpitations, some weakness associated with slow heart rate. She was found to have malfunctioning pacemaker and on the imaging noted to have her atrial lead disconnected from its intra-atrial attachment. While she was here on court monitor did she did have 1 brief episode of atrial fibrillation which was felt to be due to the detached pacemaker lead. The patient went to the electrophysiologic lab where she had her lead manipulated repositioned and reattached to the right atrial wall. She was observed overnight with good pacemaker function on court monitor. The pacemaker was interrogated and the impedance and other measured functions of the atrial lead were all within expected range for normal attachment. No other issues with pacemaker at this time. The procedure was well tolerated without bleeding wound dehiscence or other complications. The patient's brief episode of atrial fibrillation was felt to be due to the detached pacemaker lead nuts not recurred. This point is felt this will not likely recurrent she is not going to be prescribed rate control or antiarrhythmic medicines but will watch closely and have outpatient monitoring. Patient's other medical issues including her diabetes hypertension and chronic pain remained well controlled here in the hospital. She is stable for discharge at this time. She will follow up in Cardiology Clinic next week Dr. Murphy for wound check and pacemaker function check. PENDING TEST RESULTS: None Greater than 35 minutes bedside and care coordination time today
== END 2017-08-08 11:47 | disposition home or self-care (01) | DRG 261 ==
LOC: F2W 16:54 → OBSVTOIN 08-07 16:12
PROVIDERS: ADMIT Family Medicine; ATTEND Internal Medicine
PROC: 02WA3MZ Revision of Cardiac Lead in Heart, Percutaneous Approach (ICD-10-PCS; principal; 2017-08-07)
DX: T82.120A Displacement of cardiac electrode, initial encounter (principal); R00.1 Bradycardia, unspecified; I48.0 Paroxysmal atrial fibrillation; I10 Essential (primary) hypertension; F11.20 Opioid dependence, uncomplicated; E11.40 Type 2 diabetes mellitus with diabetic neuropathy, unspecified; R00.2 Palpitations; K21.9 Gastro-esophageal reflux disease without esophagitis; E03.9 Hypothyroidism, unspecified; E66.01 Morbid (severe) obesity due to excess calories; G47.33 Obstructive sleep apnea (adult) (pediatric); G89.4 Chronic pain syndrome; G54.0 Brachial plexus disorders; J45.909 Unspecified asthma, uncomplicated; D50.9 Iron deficiency anemia, unspecified; Z79.4 Long term (current) use of insulin; Z86.79 Personal history of other diseases of the circulatory system; Z68.43 Body mass index [BMI] 50.0-59.9, adult
CPT/HCPCS: G0378; J0690; J1100; J1815; J2250; J2405; J2704; J3010

== ENCOUNTER 2017-08-10 21:16 | Inpatient (IN) | payer MEDICAID ==
--- NOTE | 2017-08-10 21:38 | CPEKG ---
Heart Rate: 86 RR Interval: 698 P-R Interval: 354 QRSD Interval: 138 QT Interval: 460 QTC Interval: 551 P Shelby: 0 QRS Shelby: -45 T Wave Shelby: 54 EKG Severity - ABNORMAL ECG - EKG Impression: A-V DUAL-PACED COMPLEXES W/ SOME INHIBITION Electronically Signed By: Robyn Conway 11-Aug-2017 15:49:05
--- NOTE | 2017-08-10 21:41 | EDPHY ---
HPI/HX/ROS/PE/MDM Narrative: CHIEF COMPLAINT: Pacemaker malfunction HISTORY OF PRESENT ILLNESS: 56 year old female s/p pacer placement 07/08/17 for second degree heart block with revision of atrial lead placement perfomred on 08/07, now representing with similar symptoms of fatigue, SOB, palpitations. She was initially seen at [facility] and transfered to [facility] after consultations with Dr Jimenez. CXR at [facility] demonstrates atrial lead placement to be unchanged from 08/07/17. History of her recent cardiac issues: She was admitted 07/06/17 for bradycardia and chest pain, and discovered to have a second-degree AV block. She has continued to report that her "my heart feels like sludge", and she feels there is competition between her heart and the pacemaker. 07/17 she had the pacemaker interrogated, and felt lightheaded afterwards. She had a repeat interrogation 07/29, at which time she was noted to have atrial fibrillation. The patient was prescribed Eliquis, but was not able to start this due to insurance complications. She began to take Coumadin (5mg) on 08/06/17. Prior to this, she was taking ASA 325 QD until 07/29 when she began taking ASA 325mg BID. Her provider, Chika Mcconnell, referred her to Dr. Ellsworth, end stapler, for further evaluation. She was admitted on 08/07/17 for a pacemaker malfunction with the atrial lead detaching from its intraatrial site. She was discharged home on 08/08/17, 2 days ago. She is no longer taking Coumadin, but is taking a baby aspirin. She felt good after the lead was repositioned. This morning she felt the "sludge" in her chest at 05:30, 17 hours ago. Her O2Sat was 84% today while she was awake, so she started wearing room air which helped her symptoms. While driving to the ED she felt an "electrical buzz" in her tongue and cheeks. Is currently feeling short of breath and lethargic. No fever, chills, shortness of breath, vomiting, diarrhea, urinary complaints, headache. Prior medical records reviewed including ED visit and discharge summary from 07/24 and 08/08/17 respectively. REVIEW OF SYSTEMS: Aside from elements discussed in the HPI, a comprehensive 10-point review of systems was reviewed and is negative. PAST MEDICAL HISTORY: 1. [employer] pacemaker placed 07/08/17 with revision of the atrial lead placement on 08/07/17 2. GERD 3. Diastolic CHF 4. Diabetes mellitus type II with neuropathy 5. Hypothyroidism 6. Asthma 7. Chronic pain (chronic opiate therapy) 8. Morbid obesity 9. Obstructive sleep apnea (BiPAP) 10. Anemia 11. Thoracic outlet syndrome 12. Surgical history includes tonsillectomy, adenoidectomy, appendectomy, cholecystectomy, hysterectomy, left knee arthroscopy. SOCIAL HISTORY: Retired ER nurse. Nonsmoker. No alcohol or illicit drug use. VITAL SIGNS: Reviewed by me GENERAL: Obese female, on 02, seems slightly dyspneic. HEENT: Atraumatic. Eyes: No icterus, no injection. Mouth: moist mucous membranes. No erythema or lesions. Neck: supple with no adenopathy. LUNGS: Clear to auscultation bilaterally, no wheezes, rhonchi or rales. CARDIAC: Irregularly rate, no rubs, murmurs or gallops. ABDOMEN: Soft, nontender, nondistended, bowel sounds normal. BACK: No CVA tenderness. EXTREMITIES: No trauma. No edema. Range of motion is normal throughout. NEURO: Alert and oriented, grossly nonfocal. SKIN: Warm and dry, no rash. PSYCHIATRIC: Normal mentation, no agitation. Portions of this note were transcribed by a medical authorization specialist. I personally performed a history, physical exam, medical decision making, and confirmed accuracy of information the transcribed note. ED Course: 56 year old female s/p pacer placement 07/08/17 with revision of atrial lead placement perfomred on 08/07, now representing with similar symptoms of fatigue, SOB, palpitations. She was initially seen at [facility] and transfered to [facility] after consultations with Dr Jimenez. CXR at [facility] demonstrates atrial lead placement to be unchanged from 08/07/17. On exam her heart is irregularly irregular. EKG and chest x-ray ordered. 2135: 12-LEAD EKG: Please see the full report in [employer] [facility]. My interpretation: A-V dual paced complexes. Rate 86. 5: Consulted with [employer] desk representative; they will provide pacemaker interrogation early tomorrow morning. 2208: Patient's chest x-ray reveals good alignment of the pacemaker wires with similar positioning compared to previous. 2254: Labs demonstrate elevated troponin. Perhaps secondary to recent pacemaker wire respositioning. Of note, no clear explaination for patients hypoxia today. D dimer pending at this time. Patient is not on anti-coagulant except asparin currently. 2316: Course discussed with hospitalist service, Dr. Peña accepts admission of this patient. MDM: Diff dx considered included atrial fibrillation, pulmonary emboli, acute coronary syndrome, pacemaker wire malposition, pacemaker malfunction, electrolyte abnormalities. - Data Points Imaging Results: CXR: Impression: 1. Pacemaker leads remain in good alignment. 2. Pulmonary venous hypertension with borderline interstitial edema. Dictated By: Erlin Lo MD Imaging: I viewed and interpreted images myself Laboratory Results: Laboratory Results 08/10/17 22:51 08/10/17 22:51 Medications Given: Hydrochlorothiazide (Hydrochlorothiazide) 25 mg PO DAILY [facility] Stop: 02/07/18 11:59 Last Admin: 08/11/17 12:01 Dose: 25 mg Insulin Glargine (Lantus Syringe) 35 units SC BID SKYE Stop: 02/07/18 00:44 Last Admin: 08/11/17 09:48 Dose: 35 units Insulin Human Lispro (Humalog Lispro) 0 unit SC TIDMEAL SKYE PRN Reason: Protocol Stop: 02/07/18 07:59 Last Admin: 08/11/17 08:32 Dose: Not Given Metformin HCl (Glucophage) 1,000 mg PO BID@0900,2100 SKYE Stop: 02/07/18 11:59 Last Admin: 08/11/17 12:05 Dose: 1,000 mg Morphine Sulfate (Ms Contin/Oramorph) 15 mg PO DAILY PRN PRN Reason: severe back pain Stop: 08/21/17 10:43 Last Admin: 08/11/17 11:55 Dose: 15 mg Multivitamins/Minerals (Thera M Plus Tablet) 1 each PO DAILY SKYE Stop: 02/07/18 11:59 Last Admin: 08/11/17 12:05 Dose: 1 each Pantoprazole Sodium (Protonix) 40 mg PO BID SKYE Stop: 02/07/18 11:59 Last Admin: 08/11/17 12:05 Dose: 40 mg Discontinued Medications Diltiazem HCl (Cardizem Immediate Release) 30 mg PO ONCE ONE Stop: 08/11/17 00:50 Last Admin: 08/11/17 01:16 Dose: 30 mg Gabapentin (Neurontin) 1,200 mg PO ONCE ONE Stop: 08/11/17 01:31 Last Admin: 08/11/17 01:16 Dose: 1,200 mg Morphine Sulfate (Ms Contin/Oramorph) 15 mg PO ONCE ONE Stop: 08/11/17 00:50 Last Admin: 08/11/17 01:16 Dose: 15 mg Ondansetron HCl (Zofran) 4 mg IVP Q4HRS PRN PRN Reason: Nausea/Vomiting, Can't Take PO Stop: 02/06/18 23:23 Last Admin: 08/10/17 23:41 Dose: 4 mg General Initial Vital Signs: Initial Vital Signs Temperature (C) 37.7 C 08/10/17 21:25 Heart Rate 84 08/10/17 21:25 Respiratory Rate 22 H 08/10/17 21:25 Blood Pressure 139/96 H 08/10/17 21:25 O2 Sat (%) 97 08/10/17 21:25 O2 Delivery Mode Room Air Allergies/Adverse Reactions: butorphanol [From Stadol] Allergy (Severe, Verified 08/10/17 21:25) Hypotension Penicillins Allergy (Severe, Verified 08/10/17 21:25) Other-Enter Comments vancomycin Allergy (Severe, Verified 08/10/17 21:25) Red Man Syndrome azithromycin Allergy (Intermediate, Verified 08/10/17 21:25) Itching bupropion [From Wellbutrin] Allergy (Intermediate, Verified 08/10/17 21:25) Other-Enter Comments cefazolin [From Ancef] Allergy (Intermediate, Verified 08/10/17 21:25) Itching cephalexin [From Keflex] Allergy (Intermediate, Verified 08/10/17 21:25) Itching clindamycin Allergy (Intermediate, Verified 08/10/17 21:25) Other-Enter Comments codeine Allergy (Intermediate, Verified 08/10/17 21:25) Vomiting lisinopril Allergy (Intermediate, Verified 08/10/17 21:25) Other-Enter Comments meperidine [From Demerol] Allergy (Intermediate, Verified 08/10/17 21:25) Vomiting venlafaxine [From Effexor] Allergy (Intermediate, Verified 08/10/17 21:25) Other-Enter Comments Home Medications: Medication Instructions Recorded Cetirizine [ZyrTEC 10 mg (*)] 10 mg PO HS 07/05/17 Fluoxetine HCl [Prozac 40 mg] 40 mg PO DAILY 07/05/17 Furosemide [Lasix 20 MG (*)] 20 - 40 mg PO DAILY PRN 07/05/17 Gabapentin [Neurontin] 1,200 mg PO HS 07/05/17 Insulin Detemir [Levemir] 35 unit SC BID 07/05/17 Insulin Regular Human [Humulin R 2 - 10 unit SC ACHS 07/05/17 100 units/ml (*)] LORazepam [Lorazepam] 0.5 mg PO DAILY PRN MDD may repeat 07/05/17 x1 Levothyroxine [Synthroid 50 mcg 50 mcg PO DAILY06 07/05/17 (*)] Magnesium Oxide [Magnesium] 500 mg PO BID 07/05/17 Pantoprazole Sodium [Protonix 40mg 40 mg PO BID 07/05/17 (*)] Potassium Cl [Klor-Con 20 meq (*)] 20 meq PO BID 07/05/17 Spironolactone [Aldactone 25 MG 25 - 50 mg PO DAILY PRN 07/05/17 (*)] metFORMIN HCL [Metformin HCl] 1,000 mg PO BIDMEAL 07/05/17 morphINE SR [Ms Contin/Oramorph 15 15 mg PO HS 07/05/17 mg (*)] oxyCODONE IR [Oxycodone Ir (*)] 5 mg PO Q4 PRN 07/05/17 Albuterol [Ventolin Hfa Inhaler] 2 puffs IH Q6 PRN 07/06/17 Allopurinol [Allopurinol 300 MG 300 mg PO DAILY 07/06/17 (RX)] Eszopiclone [Lunesta] 3 mg PO HS 07/06/17 Famotidine [Pepcid 20 MG (*)] 20 mg PO DAILY PRN 07/06/17 Gabapentin [Neurontin] 600 mg PO BID PRN 07/06/17 Ipratropium/Albuterol [Duoneb (*)] 3 ml IH HS 07/06/17 Multivitamin with Iron 1 tab PO DAILY 07/06/17 [Multivitamins with Iron] Topiramate [Topamax 100MG (*)] 100 mg PO HS 07/06/17 ZOLMitriptan [Zomig 2.5MG (*)] 2.5 mg PO PRN PRN MDD may repeat x1 07/06/17 morphINE SR [Ms Contin/Oramorph 15 15 mg PO DAILY PRN 07/06/17 mg (*)] Diltiazem [Cardizem 60 MG (*)] 30 mg PO BID 08/06/17 Hydrochlorothiazide [HCTZ (*)] 25 mg PO DAILY 08/06/17 Aspirin EC [Aspirin EC 81 mg (*)] 81 mg PO DAILY 08/11/17 Calcium Carbonate [Tums 500MG (*)] 500 - 1,000 mg PO BID PRN 08/11/17 Sennosides/Docusate Sodium 1 each PO BID PRN 08/11/17 [Senokot-S (OTC)] Departure - Departure Disposition: [facility] Acute Clinical Impression: Palpitations, Elevated troponin, Hypoxemia Condition: Fair Report Scribed for: Robyn Conway Report Scribed by: Yahaira Landaverde Date of Report: 08/10/17 Time of Report: 21:41
[2017-08-10 23:01] LABS: PLATELET COUNT 246 10^3/uL (150-400)
[2017-08-10] MEDS ORDERED: ONDANSETRON DISINTEGRATING 4 MG TAB PO PRN (23:24)
[2017-08-10] MEDS ORDERED: ONDANSETRON 4 MG/2 ML VIAL IVP PRN (23:24)
[2017-08-10] MEDS ORDERED: ACETAMINOPHEN 325 MG TAB PO PRN (23:24)
[2017-08-11] MEDS ORDERED: DILTIAZEM 30 MG TAB PO ONE (00:49)
[2017-08-11] MEDS ORDERED: morphINE SR 15 MG TAB PO ONE (00:49)
[2017-08-11] MEDS: INSULIN GLARGINE 100 UNITS/ML UNIT SC SCH ×3 (01:16→21:22)
[2017-08-11] MEDS ORDERED: GABAPENTIN 400 MG CAP PO ONE (01:30)
--- NOTE | 2017-08-11 01:34 | PDGENHP ---
History and Physical - Chief Complaint Palpitations - History of Present Illness 56 yo F w/ hx CHB s/p PPM and recent lead reattachment, IDDM, HTN, chronic pain , and morbid obesity presents with palpitations. Patient was discharged on 08/08 after having detached atrial lead reattached. She woke up this morning at 5 AM with palpitations. They persisted throughout the day so she came to the ED. She denies chest pain or shortness of breath but does complain of a "buzzing" feeling in her face. Her pacer pocket is mildly tender. History Information - Allergies/Home Medication List Allergies/Adverse Reactions: butorphanol [From Stadol] Allergy (Severe, Verified 08/10/17 21:25) Hypotension Penicillins Allergy (Severe, Verified 08/10/17 21:25) Other-Enter Comments vancomycin Allergy (Severe, Verified 08/10/17 21:25) Red Man Syndrome azithromycin Allergy (Intermediate, Verified 08/10/17 21:25) Itching bupropion [From Wellbutrin] Allergy (Intermediate, Verified 08/10/17 21:25) Other-Enter Comments cefazolin [From Ancef] Allergy (Intermediate, Verified 08/10/17 21:25) Itching cephalexin [From Keflex] Allergy (Intermediate, Verified 08/10/17 21:25) Itching clindamycin Allergy (Intermediate, Verified 08/10/17 21:25) Other-Enter Comments codeine Allergy (Intermediate, Verified 08/10/17 21:25) Vomiting lisinopril Allergy (Intermediate, Verified 08/10/17 21:25) Other-Enter Comments meperidine [From Demerol] Allergy (Intermediate, Verified 08/10/17 21:25) Vomiting venlafaxine [From Effexor] Allergy (Intermediate, Verified 08/10/17 21:25) Other-Enter Comments Home Medications: Cetirizine [ZyrTEC 10 mg (*)] 10 mg PO HS 07/05/17 [Last Taken 08/05/17] Fluoxetine HCl [Prozac 40 mg] 40 mg PO DAILY 07/05/17 [Last Taken 08/06/17] Furosemide [Lasix 20 MG (*)] 20 - 40 mg PO DAILY PRN 07/05/17 [Last Taken 1 Month Ago ~07/06/17] Gabapentin [Neurontin] 1,200 mg PO HS 07/05/17 [Last Taken 08/05/17] Insulin Detemir [Levemir] 35 unit SC BID 07/05/17 [Last Taken 08/06/17 09:00] Insulin Regular Human [Humulin R 100 units/ml (*)] 2 - 10 unit SC ACHS 07/05/17 [Last Taken 08/05/17] LORazepam [Lorazepam] 0.5 mg PO DAILY PRN MDD may repeat x1 07/05/17 [Last Taken 4 Days Ago ~08/02/17] Levothyroxine [Synthroid 50 mcg (*)] 50 mcg PO DAILY06 07/05/17 [Last Taken ] Magnesium Oxide [Magnesium] 500 mg PO BID 07/05/17 [Last Taken 08/05/17] Pantoprazole Sodium [Protonix 40mg (*)] 40 mg PO BID 07/05/17 [Last Taken 09:00] Potassium Cl [Klor-Con 20 meq (*)] 20 meq PO BID 07/05/17 [Last Taken 08/06/17 09:00] Spironolactone [Aldactone 25 MG (*)] 25 - 50 mg PO DAILY PRN 07/05/17 [Last Taken 3 Days Ago ~08/03/17] metFORMIN HCL [Metformin HCl] 1,000 mg PO BIDMEAL 07/05/17 [Last Taken 08/06/17 09:00] morphINE SR [Ms Contin/Oramorph 15 mg (*)] 15 mg PO HS 07/05/17 [Last Taken ] oxyCODONE IR [Oxycodone Ir (*)] 5 mg PO Q6 PRN 07/05/17 [Last Taken 08/05/17 21: 00] Albuterol [Ventolin Hfa Inhaler] 2 puffs IH Q6 PRN 07/06/17 [Last Taken 3 Days Ago ~08/03/17] Allopurinol [Allopurinol 300 MG (RX)] 300 mg PO DAILY 07/06/17 [Last Taken 08/06] Eszopiclone [Lunesta] 3 mg PO HS 07/06/17 [Last Taken 08/05/17] Famotidine [Pepcid 20 MG (*)] 20 mg PO DAILY PRN 07/06/17 [Last Taken 2 Weeks Ago ~07/23/17] Gabapentin [Neurontin] 600 mg PO BID PRN 07/06/17 [Last Taken 08/05/17] Ipratropium/Albuterol [Duoneb (*)] 3 ml IH HS 07/06/17 [Last Taken 08/05/17] Multivitamin with Iron [Multivitamins with Iron] 1 tab PO DAILY 07/06/17 [Last Taken 08/05/17] Topiramate [Topamax 100MG (*)] 100 mg PO HS 07/06/17 [Last Taken 08/05/17] ZOLMitriptan [Zomig 2.5MG (*)] 2.5 mg PO PRN PRN MDD may repeat x1 07/06/17 [ Last Taken 1 Month Ago ~06/07/17] morphINE SR [Ms Contin/Oramorph 15 mg (*)] 15 mg PO DAILY PRN 07/06/17 [Last Taken 08/05/17 16:00] Diltiazem [Cardizem 60 MG (*)] 30 mg PO BID 08/06/17 [Last Taken 08/06/17 09:00] Hydrochlorothiazide [HCTZ (*)] 25 mg PO DAILY 08/06/17 [Last Taken 08/06/17] I have personally reviewed and updated: family history, medical history - Past Medical History diabetes type 2 Additional medical history: CHB s/p PPM. Morbid obesity. Chronic pain - Surgical History Reports: pacemaker/AICD - Family History Positive for: diabetes type II - Social History Smoking Status: Never smoked Review of Systems Review of Systems: ROS: 10pt was reviewed & negative except for what was stated in HPI & below Physical Exam Physical Exam: Temp Pulse Resp BP Pulse Ox 37.5 C 83 16 113/78 96 08/11/17 00:20 08/11/17 00:20 08/11/17 00:20 08/11/17 00:20 08/11/17 00:20 Constitutional: no apparent distress, obese Eyes: PERRL, anicteric sclera Ears, Nose, Mouth, Throat: moist mucous membranes, no oral mucosal ulcers Cardiovascular: regular rate and rhythym, no murmur, rub, or gallop Respiratory: no respiratory distress, reduced air movement Gastrointestinal: normoactive bowel sounds, soft, non-tender abdomen Skin: warm, other (Mild erythema surround pacer pocket) Musculoskeletal: full muscle strength, no muscle tenderness Neurologic: AAOx3, CN II-XII Intact Psychiatric: interacting appropriately, not anxious Lab Data & Imaging Review 08/10/17 22:51 08/10/17 22:51 WBC 14.24 10^3/uL (3.80-9.50) H 08/10/17 22:51 RBC 4.57 10^6/uL (4.18-5.33) 08/10/17 22:51 Hgb 12.9 g/dL (12.6-16.3) 08/10/17 22:51 Hct 39.7 % (38.0-47.0) 08/10/17 22:51 MCV 86.9 fL (81.5-99.8) 08/10/17 22:51 MCH 28.2 pg (27.9-34.1) 08/10/17 22:51 MCHC 32.5 g/dL (32.4-36.7) 08/10/17 22:51 RDW 15.3 % (11.5-15.2) H 08/10/17 22:51 Plt Count 246 10^3/uL (150-400) 08/10/17 22:51 MPV 12.0 fL (8.7-11.7) H 08/10/17 22:51 Neut % (Auto) 81.2 % (39.3-74.2) H 08/10/17 22:51 Lymph % (Auto) 10.4 % (15.0-45.0) L 08/10/17 22:51 Crowley % (Auto) 6.5 % (4.5-13.0) 08/10/17 22:51 Eos % (Auto) 1.2 % (0.6-7.6) 08/10/17 22:51 Baso % (Auto) 0.3 % (0.3-1.7) 08/10/17 22:51 Nucleat RBC Rel Count 0.0 % (0.0-0.2) 08/10/17 22:51 Absolute Neuts (auto) 11.57 10^3/uL (1.70-6.50) H 08/10/17 22:51 Absolute Lymphs (auto) 1.48 10^3/uL (1.00-3.00) 08/10/17 22:51 Absolute Monos (auto) 0.93 10^3/uL (0.30-0.80) H 08/10/17 22:51 Absolute Eos (auto) 0.17 10^3/uL (0.03-0.40) 08/10/17 22:51 Absolute Basos (auto) 0.04 10^3/uL (0.02-0.10) 08/10/17 22:51 Absolute Nucleated RBC 0.00 10^3/uL (0-0.01) 08/10/17 22:51 Immature Gran % 0.4 % (0.0-1.1) 08/10/17 22:51 Immature Gran # 0.05 10^3/uL (0.00-0.10) 08/10/17 22:51 D-Dimer 0.40 ug/mLFEU (0.00-0.50) 08/10/17 22:51 Sodium 144 mEq/L (135-145) 08/10/17 22:51 Potassium 4.6 mEq/L (3.5-5.2) 08/10/17 22:51 Chloride 105 mEq/L (97-110) 08/10/17 22:51 Carbon Dioxide 27 mEq/l (22-31) 08/10/17 22:51 Anion Gap 12 mEq/L (8-16) 08/10/17 22:51 BUN 17 mg/dL (7-23) 08/10/17 22:51 Creatinine 0.8 mg/dL (0.6-1.0) 08/10/17 22:51 Estimated GFR > 60 08/10/17 22:51 Glucose 126 mg/dL (70-100) H 08/10/17 22:51 Calcium 9.5 mg/dL (8.5-10.4) 08/10/17 22:51 Troponin I 0.051 ng/mL (0.000-0.034) H 08/10/17 22:51 Imaging Review: Imaging Impressions Chest X-Ray 08/10/17 21:17 Impression: 1. Pacemaker leads remain in good alignment. 2. Pulmonary venous hypertension with borderline interstitial edema. Assessment & Plan Assessment: 56 yo F w/ hx CHB s/p PPM and recent lead reattachment, IDDM, HTN, chronic pain , and morbid obesity presents with palpitations. Plan: 1. Palpitations - Unclear etiology; pacer leads seem to be in good position on CXR. Her rhythm does appear to be more paced than prior, so I wonder if she is having an underlying arrhythmia requiring more pacing. - Admit for observation, monitor on telemetry - Asked pacer rep to interrogate device, they will do so in the morning - Cardiology consult 2. Elevated troponin - Mildly elevated in setting of recent pacer wire manipulation. She denies chest pain or SOB. - Trend cardiac enzymes 3. CHB s/p PPM - Pacemaker lead reattached during recent admission due to dislodging. Appears to be in good position on CXR currently. 4. IDDM - Glargine 35 u BID + SSI while inpatient. On gabapentin for associated neuropathy. 5. Chronic pain - Takes MS Contin 15 mg BID + Oxycodone PRN. 6. Morbid obesity - BMI 54. Diet - Regular Code - Full Ppx - SCDs Dispo - Admit under observation status
[2017-08-11 05:23] LABS: PLATELET COUNT 220 10^3/uL (150-400)
[2017-08-11] MEDS: INSULIN LISPRO 100 UNIT/ML SC SCH ×3 (08:32→19:13)
[2017-08-11] MEDS ORDERED: ENOXAPARIN 40 MG/0.4 ML SYR SC SCH (09:00)
--- NOTE | 2017-08-11 09:52 | SOAPPROG ---
[facility] Progress Note Assessment/Plan: Assessment: 1. Complete heart block status post insertion of a dual-chamber pacemaker. 2. History of atrial lead dislodgement. Current interrogation shows normal atrial lead function. 3. History of iatrogenic pneumothorax at time of initial implant. 4. Morbid obesity. 5. Hypertension. 6. Hyperlipidemia. 7. Type 2 diabetes. 8. Slight elevation in troponin on admission Impression: Symptoms of right jaw buzzing, palpitations of uncertain etiology. This may represent ventricular pacing as this is a new phenomena for her complicated by action of her sensors in particular close loop sensor. She does have a single slight elevation in troponin on her 1st reading. 2nd reading is normal. This is not consistent with an acute coronary syndrome as elevation should persist and/or go up after onset of insult last evening. Patient has been reprogrammed to prolong her AV delay today. We have turned her closed loop sensor off and will function only on an accelerometer. Recommend her to be up walking doing activities of normal daily life with clinical follow-up. No further cardiac evaluation at this time. 08/11/17 09:49 Subjective: 56-year-old female well known to me history of emergent pacemaker placement for positional complete heart block this was initially complicated by an iatrogenic pneumothorax treated with chest tube. This responded well to conservative management. She was discharged home 1 week later chest x-ray suggested lead dislodgement. She presented last week with symptomatic atrial dysrhythmia and well documented atrial lead dislodgement. This was replaced. She tolerated the procedure well and was home feeling well for 2 days. Yesterday she developed which she described as palpitations and irregular heartbeat. This fell to her just like it did when the lead dislodged. She went to the emergency department was transferred here from [facility] for further evaluation. This morning she is feeling better after rest. She describes right jaw buzzing of uncertain etiology. She describes positional orthostasis with blood pressures of 70 and some near syncopal spells. She denies chest pain, PND, orthopnea. Objective: Ambulatory Orders Cetirizine [ZyrTEC 10 mg (*)] 10 mg PO HS 07/05/17 Fluoxetine HCl [Prozac 40 mg] 40 mg PO DAILY 07/05/17 Furosemide [Lasix 20 MG (*)] 20 - 40 mg PO DAILY PRN 07/05/17 Gabapentin [Neurontin] 1,200 mg PO HS 07/05/17 Insulin Detemir [Levemir] 35 unit SC BID 07/05/17 Insulin Regular Human [Humulin R 100 units/ml (*)] 2 - 10 unit SC ACHS LORazepam [Lorazepam] 0.5 mg PO DAILY PRN MDD may repeat x1 07/05/17 Levothyroxine [Synthroid 50 mcg (*)] 50 mcg PO DAILY06 07/05/17 Magnesium Oxide [Magnesium] 500 mg PO BID 07/05/17 Pantoprazole Sodium [Protonix 40mg (*)] 40 mg PO BID 07/05/17 Potassium Cl [Klor-Con 20 meq (*)] 20 meq PO BID 07/05/17 Spironolactone [Aldactone 25 MG (*)] 25 - 50 mg PO DAILY PRN 07/05/17 metFORMIN HCL [Metformin HCl] 1,000 mg PO BIDMEAL 07/05/17 morphINE SR [Ms Contin/Oramorph 15 mg (*)] 15 mg PO HS 07/05/17 oxyCODONE IR [Oxycodone Ir (*)] 5 mg PO Q4 PRN 07/05/17 Albuterol [Ventolin Hfa Inhaler] 2 puffs IH Q6 PRN 07/06/17 Allopurinol [Allopurinol 300 MG (RX)] 300 mg PO DAILY 07/06/17 Eszopiclone [Lunesta] 3 mg PO HS 07/06/17 Famotidine [Pepcid 20 MG (*)] 20 mg PO DAILY PRN 07/06/17 Gabapentin [Neurontin] 600 mg PO BID PRN 07/06/17 Ipratropium/Albuterol [Duoneb (*)] 3 ml IH HS 07/06/17 Multivitamin with Iron [Multivitamins with Iron] 1 tab PO DAILY 07/06/17 Topiramate [Topamax 100MG (*)] 100 mg PO HS 07/06/17 ZOLMitriptan [Zomig 2.5MG (*)] 2.5 mg PO PRN PRN MDD may repeat x1 07/06/17 morphINE SR [Ms Contin/Oramorph 15 mg (*)] 15 mg PO DAILY PRN 07/06/17 Diltiazem [Cardizem 60 MG (*)] 30 mg PO BID 08/06/17 Hydrochlorothiazide [HCTZ (*)] 25 mg PO DAILY 08/06/17 Aspirin EC [Aspirin EC 81 mg (*)] 81 mg PO DAILY 08/11/17 Calcium Carbonate [Tums 500MG (*)] 500 - 1,000 mg PO BID PRN 08/11/17 Sennosides/Docusate Sodium [Senokot-S] 1 each PO BID PRN 08/11/17 Medications Generic Name Dose Route Start Last Admin Trade Name Freq PRN Reason Stop Dose Admin Acetaminophen 650 mg 08/10/17 23:24 Tylenol PO 02/06/18 23:23 Q4HRS PRN Pain, Mild/Fever, Can Take PO Insulin Glargine 35 units 08/11/17 00:45 08/11/17 09:48 Lantus Syringe SC 02/07/18 00:44 35 units BID [facility] Insulin Human Lispro 0 unit 08/11/17 08:00 08/11/17 08:32 Humalog Lispro SC 02/07/18 07:59 Not Given TIDMEAL [facility] Protocol Ondansetron HCl 4 mg 08/10/17 23:24 08/10/17 23:41 Zofran IVP 02/06/18 23:23 4 mg Q4HRS PRN Nausea/Vomiting, Can't Take PO Vital Signs Temp Pulse Resp BP Pulse Ox 36.8 C 74 16 124/74 H 95 08/11/17 07:17 08/11/17 07:17 08/11/17 07:17 08/11/17 07:17 08/11/17 07:17 Laboratory Results 08/11/17 04:58 08/11/17 04:58 08/10/17 08/11/17 08/12/17 05:59 05:59 05:59 Output Total 200 Balance -200 Laboratory Tests 08/10/17 08/11/17 22:51 04:58 Troponin I 0.051 H 0.032 EKG revealed a sensing V pacing. Chest x-ray showed leads to be in good position. ICD10 Worksheet Patient Problems: Problems Problem Status Onset Bradycardia Acute Pacemaker malfunction Acute Palpitations Acute Past Medical History - Personal History Current Tetanus/Diphtheria Vaccine: Unsure Current Tetanus Diphtheria and Acellular Pertussis (TDAP): Unsure Tetanus Vaccine Date: > 10 years - Medical/Surgical History Hx Asthma: Yes Hx Chronic Respiratory Disease: No Hx Cardiac Disease: Yes Hx Diabetes: Yes Hx Renal Disease: No Hx Alcoholism: No Hx Cirrhosis: No Hx HIV/AIDS: No Hx Splenectomy or Spleen Trauma: No Other PMH: dm2, MO, asthma, depression, headaches, hypothyroid, neuropathy, chf , anemia, iron deficiency with barett's, thoracic outlet syndrome, chronic pain syndrome, chronic opiate therapy, morbid obesity, JONNY cpap, heart block 2nd degree type 2, gerd, hlpd,htn, ppm, neuroathy - Social History Smoking Status: Never smoked Review of Systems - Review of Systems Constitutional: malaise, weakness. denies: chills, fever EENTM: no symptoms reported Respiratory: no symptoms reported Cardiac: irregular heart rate, lightheadedness, palpitations. denies: chest pain, edema, syncope Gastrointestinal/Abdominal: no symptoms reported Genitourinary: no symptoms Musculoskelatal: no symptoms Skin: no symptoms Neurological: no symptoms Hematologic/Lymphatic: no symptoms reported Immunologic/allergic: no symptoms reported
[2017-08-11] MEDS ORDERED: morphINE SR 15 MG TAB PO PRN (10:44)
[2017-08-11] MEDS ORDERED: LORazepam 0.5 MG TAB PO PRN (10:44)
[2017-08-11] MEDS ORDERED: NON-FORMULARY NEW DRUG (Gabapentin [Neurontin] 600 MG) PO PRN (10:44)
[2017-08-11] MEDS ORDERED: SENNOSIDES/DOCUSATE SODIUM TAB PO PRN (10:44)
[2017-08-11] MEDS ORDERED: oxyCODONE IR 5 MG TAB PO PRN (10:44)
[2017-08-11] MEDS ORDERED: SPIRONOLACTONE 25 MG TAB PO PRN (10:44)
[2017-08-11] MEDS ORDERED: GABAPENTIN 300 MG CAP PO PRN (11:10)
[2017-08-11] MEDS: HYDROCHLOROTHIAZIDE 25 MG TAB PO SCH (12:01)
[2017-08-11] MEDS: metFORMIN HCL 500 MG TAB PO SCH ×2 (12:05→21:21)
[2017-08-11] MEDS: MULTIVITAMINS W-MINERALS 1 EACH TAB PO SCH (12:05)
[2017-08-11] MEDS: PANTOPRAZOLE SODIUM 40 MG TAB PO SCH ×2 (12:05→21:20)
--- NOTE | 2017-08-11 13:30 | ASMTCMCOM ---
CM Note CM Note Notes: 08/11/2017 Case Management Note Reviewed pt in rounds. There are no case management d/c needs identified d/t pt age, family support and activity levels prior to admission. There are no PT or OT evals ordered at this time. Case Management d/c poc: anticipating independent with follow up as directed. Case Management available if needs change. Date Signed: 08/11/2017 01:29 PM Electronically Signed By:Maryana Dash RN
--- NOTE | 2017-08-11 16:30 | HOSPPROG ---
Hospitalist Progress Note Assessment/Plan: #Palpitations: recent atrial lead dislodgement. Interrogation shows normal function. Set for prolonged AV delay today/ #Indeterminate trop: normalized. No CP, not c/s ACS. #Complete heart block: recent dual-chamber pacer placed #Iatrogenic PTX: with initial pacer placement. No e/o now #HTN: resume home meds #HLD: home meds #Chronic pain: MS contin #Type 2 DM: hold metformin. Lantus while here #Hypothyroidism: LT4 #Diet: cardiac #Disp: warrants inpatient admission for telemetry. If clinically stable, DC in morning Subjective: woozy this morning Objective: Vital Signs Temp Pulse Resp BP Pulse Ox 36.8 C 73 18 118/72 98 08/11/17 07:17 08/11/17 15:38 08/11/17 15:38 08/11/17 15:38 08/11/17 15:38 Microbiology 08/11/17 12:15 Respiratory Panel (PCR) - Final Nasal, Sinus - [facility] No Organism Detected Laboratory Results 08/11/17 04:58 08/11/17 04:58 08/10/17 08/11/17 08/12/17 05:59 05:59 05:59 Output Total 200 Balance -200 - Physical Exam Constitutional: obese Eyes: PERRL Ears, Nose, Mouth, Throat: moist mucous membranes, hearing normal Cardiovascular: regular rate and rhythym, no murmur, rub, or gallop, other ( pacer site CDI, no surrounding erythema), No edema Respiratory: no respiratory distress, no rales or rhonchi Gastrointestinal: normoactive bowel sounds, soft, non-tender abdomen Genitourinary: no bladder fullness Skin: warm Musculoskeletal: full muscle strength Neurologic: AAOx3, CN II-XII Intact Psychiatric: interacting appropriately, anxious ICD10 Worksheet Patient Problems: Problems Problem Status Onset Bradycardia Acute Pacemaker malfunction Acute Palpitations Acute Elevated troponin Acute Hypoxemia Acute
[2017-08-11] MEDS ORDERED: FAMOTIDINE 20 MG TAB PO PRN (18:18)
[2017-08-11] MEDS ORDERED: ALBUTEROL 60 PUFFS/8 GM MDI IH PRN (18:18)
[2017-08-11] MEDS ORDERED: CETIRIZINE 10 MG TAB PO SCH (21:00)
[2017-08-11] MEDS ORDERED: NON-FORMULARY NEW DRUG (Magnesium Oxide [Magnesium] 500 MG) PO SCH (21:00)
[2017-08-11] MEDS ORDERED: GABAPENTIN 400 MG CAP PO SCH (21:00)
[2017-08-11] MEDS ORDERED: morphINE SR 15 MG TAB PO SCH (21:00)
[2017-08-11] MEDS ORDERED: ZOLPIDEM TARTRATE 5 MG TAB PO SCH (21:00)
[2017-08-11] MEDS ORDERED: NON-FORMULARY NEW DRUG (Gabapentin [Neurontin] 1,200 MG) PO SCH (21:00)
[2017-08-11] MEDS ORDERED: TOPIRAMATE 100 MG TAB PO SCH (21:00)
[2017-08-11] MEDS ORDERED: IPRATROPIUM/ALBUTEROL 3 ML DEYVIAL IH SCH (21:00)
[2017-08-11] MEDS: POTASSIUM CL 20 MEQ TAB PO SCH (21:21)
[2017-08-11] MEDS: DILTIAZEM 30 MG TAB PO SCH (21:21)
[2017-08-11] MEDS: MAGNESIUM OXIDE 400 MG TAB PO SCH (21:21)
[2017-08-12 04:24] VITALS: O2SAT 99
[2017-08-12] MEDS ORDERED: LEVOTHYROXINE 50 MCG TAB PO SCH (06:00)
[2017-08-12 07:45] VITALS: BP 107/64; PULSE 62; RESP 14; TEMP 98.5
[2017-08-12] MEDS ORDERED: ALLOPURINOL 300 MG TAB PO SCH (09:00)
[2017-08-12] MEDS ORDERED: MULTIVITAMIN WITH IRON PO SCH (09:00)
[2017-08-12] MEDS ORDERED: ASPIRIN EC 81 MG TAB PO SCH (09:00)
[2017-08-12] MEDS ORDERED: FLUoxetine 20 MG CAP PO SCH (09:00)
[2017-08-12] MEDS: INSULIN GLARGINE 100 UNITS/ML UNIT SC SCH (09:18)
[2017-08-12] MEDS: MAGNESIUM OXIDE 400 MG TAB PO SCH (09:19)
[2017-08-12] MEDS: metFORMIN HCL 500 MG TAB PO SCH (09:19)
[2017-08-12] MEDS: DILTIAZEM 30 MG TAB PO SCH (09:19)
[2017-08-12] MEDS: POTASSIUM CL 20 MEQ TAB PO SCH (09:20)
[2017-08-12] MEDS: HYDROCHLOROTHIAZIDE 25 MG TAB PO SCH (09:20)
[2017-08-12] MEDS: MULTIVITAMINS W-MINERALS 1 EACH TAB PO SCH (09:20)
[2017-08-12] MEDS: PANTOPRAZOLE SODIUM 40 MG TAB PO SCH (09:20)
[2017-08-12] MEDS: INSULIN LISPRO 100 UNIT/ML SC SCH (09:21)
--- NOTE | 2017-08-12 09:52 | PDMN ---
Medical Necessity Medical necessity: Change to IP, as of 08/11/17, per MD; los >2 mn for ongoing management of heart palpitations requiring further telemetry; hx complete heart block s/p pacer placement w/recent atrial lead dislodgement/reattachment, diabetes, htn & morbid obesity; per progress note & order 08/11/17
--- NOTE | 2017-08-12 10:28 | ASMTLACE ---
LACE Length of stay for Answers: Less than 1 day current admission Acuity / Level of Answers: No Care: Did the patient have an inpatient admission? Comorbidities - select Answers: Chronic pulmonary disease all that apply Diabetes (uncontrolled or controlled) # of Emergency department Answers: 0 visits in the last 6 months Score: 3 Date Signed: 08/12/2017 10:27 AM Electronically Signed By:Maryana Dash RN
--- NOTE | 2017-08-12 11:49 | ASDISCHSUM ---
Discharge Information Plan Status:Home with No Needs Medically Cleared to Leave:08/11/2017 Discharge Date:08/12/2017 11:05 AM CM D/C Disposition:Home, Routine, Self-Care ADT D/C Disposition:Home, Routine, Self-Care Projected Discharge Date:08/12/2017 11:05 AM Transportation at D/C:Medicaid Transportation Discharge Delay Reason: Follow-Up Date:08/12/2017 11:05 AM Discharge Slot: Final Diagnosis: Placement Information Patient Contact Information Contact Name:YADIRA Relationship:Father Address: City: [facility] Phone: [facility] Code: Email: Financial Information Financial Class: Primary Plan Desc:[employer] Primary Plan Number:[id number] Secondary Plan Desc: Secondary Plan Number: Assessment Information [facility] CM Progress Note CM Note CM Note Notes: 08/11/2017 Case Management Note Reviewed pt in rounds. There are no case management d/c needs identified d/t pt age, family support and activity levels prior to admission. There are no PT or OT evals ordered at this time. Case Management d/c poc: anticipating independent with follow up as directed. Case Management available if needs change. Date Signed: 08/11/2017 01:29 PM Electronically Signed By:Maryana Dash RN LACE LACE Length of stay for Answers: Less than 1 day current admission Acuity / Level of Answers: No Care: Did the patient have an inpatient admission? Comorbidities - select Answers: Chronic pulmonary disease all that apply Diabetes (uncontrolled or controlled) # of Emergency department Answers: 0 visits in the last 6 months Score: 3 Date Signed: 08/12/2017 10:27 AM Electronically Signed By:Maryana Dash RN Intervention Information Intervention Type:Transportation Date of Service:08/12/2017 10:25 AM Patient Type:Inpatient Staff Member:JULIÁN Dash, Maryana Hours:0.25 Discipline: Severity: Comment:arranged Medicaid transport through [facility]. Confirmation # [id number]
--- NOTE | 2017-08-12 17:43 | GDS ---
[f rep st] DISCHARGE SUMMARY DISCHARGE DIAGNOSES: 1. Palpitations. 2. Indeterminate troponin. 3. Recent complete heart block, status post dual-chamber pacemaker. 4. Iatrogenic pneumothorax. 5. Hypertension. 6. Hyperlipidemia. 7. Chronic pain. 8. Type 2 diabetes. 9. Hypothyroidism. 10. Atrial lead dislodgement. HISTORY OF PRESENT ILLNESS: A 56-year-old female with recent history of complete heart block, status post pacemaker, who was discharged 08/08/2017 after having a detached atrial lead reattached. She w werner up the morning of this admission at 5 a.m. with palpitations that were persistent throughout the day. She denied any chest pain or shortness of breath, but did complain of a buzzing feeling in her face. She denies any fevers, chills, or sweats. No redness around the pacer site. HOSPITAL COURSE BY PROBLEM: 1. Palpitations: Recent atrial lead dislodgement, which was reattached. Pacer was interrogated her e, showing normal function. Cardiology set for prolonged AV delay. Indeterminate troponin, mildly e levated to 0.055 with no ischemic EKG changes. No chest pain, so not concerned of ACS at this point. No further cardiac evaluation. 2. Recent complete heart block, status post pacemaker. Site looks clean, dry, intact. No evidence of infection. She will follow up with Cardiology. 3. Recent iatrogenic pneumothorax: This was with initial pacer placement. No evidence of that now. 4. Hypertension. Resume home medications. 5. Hyperlipidemia. Home medications. 6. Chronic pain. MS Contin. 7. Type 2 diabetes. Resume metformin and Lantus at home. 8. Hypothyroidism. Levothyroxine. DISPOSITION: Patient is stable for discharge. NEW MEDICATIONS: None. FOLLOWUP: Cardiology. PHYSICAL EXAM: VITAL SIGNS: Today, temperature 36.9, blood pressure 107/64, heart rate is in the 60 s, respirations 14, 99% on 0.5 L. GENERAL: Well-appearing, obese female lying in bed in no acute di stress. HEENT: PERRLA. EOMI. Oropharynx clear. CV: Regular rate and rhythm. Pacemaker site is dressed, clean, dry, intact. No surrounding erythema or purulence. LUNGS: Clear to auscultation bi laterally. ABDOMEN: Obese, soft, nontender, nondistended. Positive bowel sounds. : No Ruth. MUSCULOSKELETAL: 5/5 upper and lower extremity strength. NEURO: 2 through 12 intact. PSYCH: Aler t and oriented x3. /[id number]/MODL
== END 2017-08-12 11:05 | disposition home or self-care (01) | DRG 309 ==
LOC: EDUNIT# → F2W 08-11 00:09 → OBSVTOIN 08-11 16:31
PROVIDERS: ADMIT Student in an Organized Health Care Education/Training Program; ATTEND Student in an Organized Health Care Education/Training Program
DX: R00.2 Palpitations (principal); Z68.43 Body mass index [BMI] 50.0-59.9, adult; Z95.0 Presence of cardiac pacemaker; I10 Essential (primary) hypertension; E78.5 Hyperlipidemia, unspecified; G89.29 Other chronic pain; E11.9 Type 2 diabetes mellitus without complications; E03.9 Hypothyroidism, unspecified; E66.01 Morbid (severe) obesity due to excess calories; D50.9 Iron deficiency anemia, unspecified; G47.33 Obstructive sleep apnea (adult) (pediatric); Z79.84 Long term (current) use of oral hypoglycemic drugs
CPT/HCPCS: J1815; J2405

== ENCOUNTER → 2017-09-05 | Outpatient (CLI) | payer MEDICAID | LOC: FLAB 11:34 | PROVIDERS: ATTEND Internal Medicine Cardiovascular Disease | DX: R06.02 Shortness of breath (principal); Z95.0 Presence of cardiac pacemaker ==

== ENCOUNTER 2017-09-18 17:16 | Observation (INO) | payer MEDICAID ==
--- NOTE | 2017-09-18 17:35 | EDPHY ---
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 Tonight she is complaining of a slow heart rate (60 BPM) which causes her to have chest pressure, dizziness, and diaphoresis. For the past 3 months she has had multiple problems with her pacemaker, including a detached atrial lead. On 08/11/17 she was discharged from this hospital after her pacer was interrogated. In mid August her pacemaker was reprogrammed and the voltage was turned down. Today her heart rate has stayed 60 BPM while lying down, standing up, or moving around. She has an appointment with Dr. Orozco, roofer helper vinyl coating, and the pacer clinic on 10/13/17. No headache, sore throat, cough, abdominal pain, numbness, paresthesias, fever. Prior medical records reviewed including discharge summary on 08/11/17. REVIEW OF SYSTEMS: Aside from elements discussed in the HPI, a comprehensive 10-point review of systems was reviewed and is negative. PMH: 2nd degree type 2 heart block, Biotronik pacemaker, Type 2 Diabetes, asthma , CHF, CPAP, hyperlipidemia, hypertension, neuropathy, chronic pain, chronic opiate therapy, obesity, depression SOCIAL HISTORY: Lives in [place], , retired ER nurse PHYSICAL EXAM: General: Patient is alert, obese, in no acute distress. ENT: Eyes are normal to inspection. ENT inspection normal. Neck: Normal inspection. Full range of motion. Respiratory: No respiratory distress. Breath sounds normal bilaterally. Cardiovascular: Regular rate and rhythm. Strong peripheral pulses. Normal cap refill. Abdomen: The abdomen is nontender to palpation. There are no peritoneal signs. There are normal bowel sounds. Back: Normal to inspection. No tenderness to palpation. Skin: Normal color. No rash. Warm and dry. Extremities: Normal appearance. Full range of motion. Neuro: Oriented x3. Normal motor function. Normal sensory function. ED Course: 1800: EKG was ordered and interpreted by myself. Please see [employer] system for official reading. 1903: Consulted with [employer] labor union business representative. 1931: Consulted with Dr. Cedillo, roofer helper [employer], regarding this patient. She has an elevated troponin. [employer] has adjusted the pacemaker rate. 1944: Reassessed patient and discussed imaging findings. She will need to be admitted for elevated troponin and a pacemaker malfunction. She is comfortable with plan for admission. 1952: Consulted with hospitalist service, Dr. Leon accepts admission of this patient. MDM: This patient presents with pacemaker malfunction causing weakness and some chest discomfort. Pacer has been reprogrammed and patient feels better but troponin is mildly elevated and patient has multiple risk factors for heart disease. - Data Points Imaging Results: Imaging Impressions Chest X-Ray 09/18/17 18:29 Impression: Obscuration of left hemidiaphragm and lateral heart border on PA view may represent a developing left basilar pneumonia. Recommend follow-up chest x-ray in 6-8 weeks to verify resolution. Imaging: I viewed and interpreted images myself Laboratory Results: Laboratory Results 09/18/17 17:50 09/18/17 17:50 09/18/17 09/18/17 17:50 17:50 WBC 13.97 10^3/uL H 10^3/uL (3.80-9.50) RBC 5.01 10^6/uL 10^6/uL (4.18-5.33) Hgb 14.0 g/dL g/dL (12.6-16.3) Hct 43.8 % % (38.0-47.0) MCV 87.4 fL fL (81.5-99.8) MCH 27.9 pg pg (27.9-34.1) MCHC 32.0 g/dL L g/dL (32.4-36.7) RDW 15.3 % H % (11.5-15.2) Plt Count 278 10^3/uL 10^3/uL (150-400) MPV 12.2 fL H fL (8.7-11.7) Neut % (Auto) 76.4 % H % (39.3-74.2) Lymph % (Auto) 16.9 % % (15.0-45.0) [place] % (Auto) 5.4 % % (4.5-13.0) Eos % (Auto) 0.6 % % (0.6-7.6) Baso % (Auto) 0.3 % % (0.3-1.7) Nucleat RBC Rel Count 0.0 % % (0.0-0.2) Absolute Neuts (auto) 10.68 10^3/uL H 10^3/uL (1.70-6.50) Absolute Lymphs (auto) 2.36 10^3/uL 10^3/uL (1.00-3.00) Absolute Monos (auto) 0.75 10^3/uL 10^3/uL (0.30-0.80) Absolute Eos (auto) 0.09 10^3/uL 10^3/uL (0.03-0.40) Absolute Basos (auto) 0.04 10^3/uL 10^3/uL (0.02-0.10) Absolute Nucleated RBC 0.00 10^3/uL 10^3/uL (0-0.01) Immature Gran % 0.4 % % (0.0-1.1) Immature Gran # 0.05 10^3/uL 10^3/uL (0.00-0.10) Sodium 143 mEq/L mEq/L (135-145) Potassium 4.4 mEq/L mEq/L (3.5-5.2) Chloride 102 mEq/L mEq/L (97-110) Carbon Dioxide 22 mEq/l mEq/l (22-31) Anion Gap 19 mEq/L H mEq/L (8-16) BUN 15 mg/dL mg/dL (7-23) Creatinine 0.8 mg/dL mg/dL (0.6-1.0) Estimated GFR > 60 Glucose 138 mg/dL H mg/dL (70-100) Calcium 9.6 mg/dL mg/dL (8.5-10.4) Troponin I 0.059 ng/mL H ng/mL (0.000-0.034) General Time Seen by Provider: 09/18/17 17:34 Initial Vital Signs: Initial Vital Signs Temperature (C) 37.2 C 09/18/17 17:23 Heart Rate 61 09/18/17 17:23 Respiratory Rate 16 09/18/17 17:23 Blood Pressure 185/84 H 09/18/17 17:23 O2 Sat (%) 96 09/18/17 17:23 O2 Delivery Mode Room Air Allergies/Adverse Reactions: butorphanol [From Stadol] Allergy (Severe, Verified 03/15/18 17:21) Hypotension Penicillins Allergy (Severe, Verified 09/18/17 17:21) Other-Enter Comments vancomycin Allergy (Severe, Verified 09/18/17 17:21) Red Man Syndrome azithromycin Allergy (Intermediate, Verified 09/18/17 17:21) Itching bupropion [From Wellbutrin] Allergy (Intermediate, Verified 09/18/17 17:21) Other-Enter Comments cefazolin [From Ancef] Allergy (Intermediate, Verified 09/18/17 17:21) Itching cephalexin [From Keflex] Allergy (Intermediate, Verified 09/18/17 17:21) Itching clindamycin Allergy (Intermediate, Verified 09/18/17 17:21) Other-Enter Comments codeine Allergy (Intermediate, Verified 09/18/17 17:21) Vomiting lisinopril Allergy (Intermediate, Verified 09/18/17 17:21) Other-Enter Comments meperidine [From Demerol] Allergy (Intermediate, Verified 09/18/17 17:21) Vomiting venlafaxine [From Effexor] Allergy (Intermediate, Verified 09/18/17 17:21) Other-Enter Comments Home Medications: Medication Instructions Recorded Cetirizine [ZyrTEC 10 mg (*)] 10 mg PO HS 07/05/17 Gabapentin [Neurontin] 1,200 mg PO HS 07/05/17 Insulin Detemir [Levemir] 35 unit SC BID 07/05/17 Insulin Regular Human [Humulin R 2 - 10 unit SC ACHS 07/05/17 100 units/ml (*)] LORazepam [Lorazepam] 0.5 mg PO DAILY PRN MDD may repeat 07/05/17 x1 Levothyroxine [Synthroid 50 mcg 50 mcg PO DAILY06 07/05/17 (*)] Pantoprazole Sodium [Protonix 40mg 40 mg PO BID 07/05/17 (*)] Potassium Cl [Klor-Con 20 meq (*)] 20 meq PO BID 07/05/17 Spironolactone [Aldactone 25 MG 25 - 50 mg PO DAILY PRN 07/05/17 (*)] metFORMIN HCL [Metformin HCl] 1,000 mg PO BIDMEAL 07/05/17 morphINE SR [Ms Contin/Oramorph 15 15 mg PO HS 07/05/17 mg (*)] oxyCODONE IR [Oxycodone Ir (*)] 5 mg PO Q4 PRN 07/05/17 Albuterol [Ventolin Hfa Inhaler] 2 puffs IH Q6 PRN 07/06/17 Allopurinol [Allopurinol 300 MG 300 mg PO DAILY 07/06/17 (RX)] Eszopiclone [Lunesta] 3 mg PO HS 07/06/17 Famotidine [Pepcid 20 MG (*)] 20 mg PO DAILY PRN 07/06/17 Gabapentin [Neurontin] 600 mg PO BID PRN 07/06/17 Ipratropium/Albuterol [Duoneb (*)] 3 ml IH HS 07/06/17 Multivitamin with Iron 1 tab PO DAILY 07/06/17 [Multivitamins with Iron] Topiramate [Topamax 100MG (*)] 100 mg PO HS 07/06/17 ZOLMitriptan [Zomig 2.5MG (*)] 2.5 mg PO PRN PRN MDD may repeat x1 07/06/17 morphINE SR [Ms Contin/Oramorph 15 15 mg PO DAILY PRN 07/06/17 mg (*)] Hydrochlorothiazide [HCTZ (*)] 25 mg PO DAILY 08/06/17 Aspirin EC [Aspirin EC 81 mg (*)] 81 mg PO BID 08/11/17 Calcium Carbonate [Tums 500MG (*)] 500 - 1,000 mg PO BID PRN 08/11/17 Sennosides/Docusate Sodium 1 each PO BID PRN 08/11/17 [Senokot-S] Herbals/Supplements -Info Only 1 ea PO DAILY 09/18/17 Vilazodone HCl [Viibryd] 20 mg PO DAILY 09/18/17 Departure - Departure Disposition: [facility] Inpatient Acute Clinical Impression: Elevated troponin Pacemaker malfunction Qualifiers: Encounter type: initial encounter Qualified Code(s): T82.111A - Breakdown ( mechanical) of cardiac pulse generator (battery), initial encounter Condition: Fair Report Scribed for: Skip Martinez Report Scribed by: Yahaira Landaverde Date of Report: 09/18/17 Time of Report: 17:35 Physician Review and Approval Statement: Portions of this note were transcribed by an ED scribe. I personally performed the history, physical exam, and medical decision making; and confirm the accuracy of the information in the transcribed note.
--- NOTE | 2017-09-18 18:03 | CPEKG ---
Heart Rate: 80 RR Interval: 750 P-R Interval: 331 QRSD Interval: 136 QT Interval: 492 QTC Interval: 568 P [place]: 5 QRS [place]: -54 T Wave [place]: 55 EKG Severity - ABNORMAL ECG - EKG Impression: A-V DUAL-PACED RHYTHM WITH SOME VA CONDUCTION Electronically Signed By: Dev Ellsworth 19-Sep-2017 12:56:33
[2017-09-18 18:56] LABS: PLATELET COUNT 278 10^3/uL (150-400)
[2017-09-18] MEDS ORDERED: FAMOTIDINE 20 MG TAB PO PRN (21:30)
[2017-09-18] MEDS ORDERED: SPIRONOLACTONE 25 MG TAB PO PRN (21:30)
[2017-09-18] MEDS ORDERED: SENNOSIDES/DOCUSATE SODIUM TAB PO PRN (21:30)
[2017-09-18] MEDS ORDERED: oxyCODONE IR 5 MG TAB PO PRN (21:30)
[2017-09-18] MEDS ORDERED: LORazepam 0.5 MG TAB PO PRN (21:30)
[2017-09-18] MEDS ORDERED: CALCIUM CARBONATE 500 MG CHEWABLE TAB PO PRN (21:30)
[2017-09-18] MEDS ORDERED: ONDANSETRON 4 MG/2 ML VIAL IVP PRN (21:34)
[2017-09-18] MEDS ORDERED: ONDANSETRON DISINTEGRATING 4 MG TAB PO PRN (21:34)
[2017-09-18] MEDS ORDERED: ACETAMINOPHEN 325 MG TAB PO PRN (21:34)
[2017-09-18] MEDS ORDERED: GABAPENTIN 300 MG CAP PO PRN (22:00)
[2017-09-18] MEDS ORDERED: ALBUTEROL 60 PUFFS/8 GM MDI IH PRN (22:00)
[2017-09-18] MEDS ORDERED: D50W 25 GM/50 ML SYR IVP PRN (22:06)
--- NOTE | 2017-09-18 22:23 | GHP ---
[f rep st] HISTORY AND PHYSICAL DATE OF ADMISSION: 09/18/2017 HISTORY OF PRESENT ILLNESS: The patient is a 56-year-old female history of diabetes, complete heart block with pacer placement. In July, she was readmitted with lead detachment, it was replaced and then readmitted subsequently with chest palpitations and indeterminate troponin. During the last ad mission, they had adjusted the pacemaker and prolonged her AV delay. Today she was walking, and her pulse stated 60, normally goes up to 70 or 80. She felt lightheaded and presyncopal and had some lenny [address] pressure. She presented to the emergency department. She has a history of a stress test that was negative. She does not have anginal symptoms at other times. She has not had fever, chills, cough, sputum, nausea, vomiting, diarrhea. REVIEW OF SYSTEMS: Complete 10-point review of systems conducted, negative except as noted in the HP I. PAST MEDICAL HISTORY: 1. Morbid obesity. 2. Diabetes. 3. Polypharmacy. 4. Hypothyroidism. 5. Chronic pain on continuous narcotics. 6. Hypertension. 7. Gout. ALLERGIES: Butorphanol, penicillin, vancomycin, azithromycin, bupropion, cefazolin, although she say s she tolerates it, Keflex, although she says she has tolerated it, clindamycin, codeine, lisinopril, meperidine, venlafaxine. HOME MEDICATIONS: Oxycodone, MS Contin 15 twice daily, metformin, zolmitriptan, vilazodone, Topamax, spironolactone, senna, docusate, potassium, pantoprazole, multivitamin, levothyroxine, lorazepam, ip ratropium, regular insulin, insulin detemir 35 twice daily, hydrochlorothiazide, gabapentin, famotidi ne, Lunesta, cetirizine, aspirin, allopurinol, albuterol. SOCIAL HISTORY: Lives in [place]. 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 No tobacco. N o alcohol. FAMILY HISTORY: She had a nephew requiring open-heart surgery. PHYSICAL EXAMINATION: VITAL SIGNS: Temp 37.2, blood pressure 185/84, pulse 61, breathing 16 times a minute, 96% on room air. GENERAL: No acute distress. HEENT: Sclerae anicteric. Oropharynx clear . Mucous membranes moist. NECK: Supple. No lymphadenopathy or JVD. LUNGS: Clear to auscultation bilaterally. HEART: S1, S2. ABDOMEN: Soft, nontender, nondistended. LOWER EXTREMITIES: No abraham a. Calves are nontender. SKIN: Without rash. NEUROLOGIC: Nonfocal. LABORATORY DATA: White count 14, hematocrit 44, platelets are 278,000. Sodium 143, potassium 4.4, c hloride 102, bicarb 22, BUN 15, creatinine 0.8, glucose 138. Troponin 0.059, it was 0.051 in a simil ar setting last time. Chest x-ray interpreted by me, showed lost left hemidiaphragm, but otherwise c lear. This does not appear to represent pneumonia clinically. EKG interpreted by me, shows AV paced dual paced rhythm with some inhibition. I have discussed the case Dr. Skip Martinez. ASSESSMENT/PLAN: A 56-year-old female with pacemaker issues and an indeterminate troponin. 1. Indeterminate troponin. In light of a recent negative stress test in the relationship to her pac [facility], we will repeat a troponin but will not perform additional provocative testing in the morning. Cardiology will see her. 2. Pacer issue. It sounds like she had like a pacer induced Wenckebach. This has been adjusted. W e will follow. She is no longer has a heart rate of 60. 3. Diabetes. We will continue her insulin. She wishes to not be on a diabetic diet. 4. Chronic pain. Continue her medications. DISPOSITION: Observation status. /[id number]/MOD
[2017-09-18] MEDS ORDERED: ZOLPIDEM TARTRATE 5 MG TAB PO SCH (22:45)
[2017-09-18] MEDS ORDERED: CETIRIZINE 10 MG TAB PO SCH (22:45)
[2017-09-18] MEDS ORDERED: GABAPENTIN 400 MG CAP PO SCH (22:45)
[2017-09-18] MEDS ORDERED: TOPIRAMATE 100 MG TAB PO SCH (22:45)
[2017-09-18] MEDS ORDERED: morphINE SR 15 MG TAB PO SCH (22:45)
[2017-09-18] MEDS: INSULIN GLARGINE 100 UNITS/ML UNIT SC SCH (23:10)
[2017-09-18] MEDS: metFORMIN HCL 500 MG TAB PO SCH (23:12)
[2017-09-18] MEDS: POTASSIUM CL 20 MEQ TAB PO SCH (23:12)
[2017-09-18] MEDS: ASPIRIN EC 81 MG TAB PO SCH (23:13)
[2017-09-18] MEDS: PANTOPRAZOLE SODIUM 40 MG TAB PO SCH (23:13)
[2017-09-19 04:28] VITALS: PULSE 72; TEMP 98.4
[2017-09-19] MEDS ORDERED: LEVOTHYROXINE 50 MCG TAB PO SCH (06:00)
[2017-09-19] MEDS ORDERED: INSULIN REGULAR HUMAN 100 UNIT/ML UNIT SC SCH (07:30)
[2017-09-19] MEDS ORDERED: INSULIN REGULAR HUMAN SC SCH (07:30)
[2017-09-19] MEDS ORDERED: morphINE SR 15 MG TAB PO SCH (09:00)
[2017-09-19] MEDS ORDERED: Vilazodone Hcl [Viibryd] 20 MG PO SCH (09:00)
[2017-09-19] MEDS ORDERED: NON-FORMULARY NEW DRUG (Insulin Detemir [Levemir] 35 UNIT) SC SCH (09:00)
[2017-09-19] MEDS ORDERED: HYDROCHLOROTHIAZIDE 25 MG TAB PO SCH (09:00)
[2017-09-19] MEDS ORDERED: Herbals/Supplements -Info Only PO SCH (09:00)
[2017-09-19] MEDS ORDERED: ALLOPURINOL 300 MG TAB PO SCH (09:00)
[2017-09-19] MEDS ORDERED: MULTIVITAMINS 1 EACH TAB PO SCH (09:00)
[2017-09-19] MEDS ORDERED: ENOXAPARIN 60 MG/0.6 ML SYR SC SCH (09:00)
[2017-09-19] MEDS: PANTOPRAZOLE SODIUM 40 MG TAB PO SCH (09:41)
[2017-09-19] MEDS: POTASSIUM CL 20 MEQ TAB PO SCH (09:41)
[2017-09-19] MEDS: ASPIRIN EC 81 MG TAB PO SCH (09:42)
[2017-09-19] MEDS: INSULIN GLARGINE 100 UNITS/ML UNIT SC SCH (09:43)
[2017-09-19 09:59] VITALS: BP 102/75; RESP 13; O2SAT 93
--- NOTE | 2017-09-19 10:28 | SOAPPROG ---
ROHIT Progress Note Assessment/Plan: Assessment: 56-year-old female with a history of sick sinus syndrome and previous pacemaker implantation in July complicated by pneumothorax an atrial lead dislodgement presents now with symptoms of blunted heart rate and mild dizziness with activity. Her electrocardiogram indicates Wenckebach likely a result of an extended AV delay and TARP. She has had pacemaker reprogramming done and today feels much better. She has no history of ischemic heart disease. She does, however, have an extensive cardiac risk factor profile. Her symptoms are, however, really not consistent with underlying ischemia and appear to have resolved following reprogramming of her device. As result, I think that she can be discharged from the hospital today. She does have scheduled follow-up with Dr. Orozco from our office early next month. She will continue on her current medications. 09/19/17 10:29 Subjective: The patient was seen and examined. Her chart was reviewed. She has a history of sick sinus syndrome with previous pacemaker implantation in July. Unfortunately, this was complicated by both pneumothorax and lead dislodgement. She had an atrial lead revision performed by Dr. Ellsworth at and has seen Dr. Ellsworth in the office on several occasions now. Since she had her pacemaker implanted she has been multiple symptoms of palpitations. She has had several adjustments made to her pacemaker most recently extending the TARP. She comes in today with complaints that her heart rate has not been going up appropriately when she walks. She felt that her heart rate was only 60 beats per minute even while she was walking. She felt a little bit lightheaded. She had no anginal quality chest discomfort. She did not have an episode of syncope. Overnight she has been monitored. Her initial ECG indicated sinus rhythm with evidence Wenckebach. Her pacemaker was adjusted last night. Apparently, the AV delay was reduced. She states she feels better and is back to normal this morning. Objective: Vital Signs Temp Pulse Resp BP Pulse Ox 36.9 C 72 13 102/75 93 09/19/17 04:27 09/19/17 09:58 09/19/17 09:58 09/19/17 09:58 09/19/17 09:58 09/18/17 09/19/17 09/20/17 05:59 05:59 05:59 Intake Total 300 Balance 300 Physical Exam - Physical Exam General Appearance: WD/WN, no apparent distress Neck: non-tender, full range of motion Respiratory: chest non-tender, lungs clear, other (Pacemaker implantation site is well-healed) Cardiac/Chest: regular rate, rhythm, No edema, No gallop Peripheral Pulses: 2+: carotid (R), carotid (L) Abdomen: non-tender, soft Pelvic Exam: deferred Rectal: deferred Extremities: non-tender Neuro/Psych: alert, oriented x 3 ICD10 Worksheet Patient Problems: Problems Problem Status Onset Elevated troponin Acute Pacemaker malfunction Acute Bradycardia Acute Hypoxemia Acute Palpitations Acute
--- NOTE | 2017-09-19 12:22 | ASMTLACE ---
LACE Length of stay for Answers: 1 day current admission Acuity / Level of Answers: No Care: Did the patient have an inpatient admission? Comorbidities - select Answers: Other Notes: PPM all that apply # of Emergency department Answers: 1-2 visits in the last 6 months Score: 3 Date Signed: 09/19/2017 12:22 PM Electronically Signed By:Michelle Patel RN
--- NOTE | 2017-09-19 12:25 | ASMTCMCOM ---
CM Note CM Note Notes: Chart reviewed. 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 Had her PPM adjusted last evening and is now medically cleared for discharge to home. No needs identified. CM available should needs arise. Date Signed: 09/19/2017 12:25 PM Electronically Signed By:Michelle Patel RN
[2017-09-19] MEDS: metFORMIN HCL 500 MG TAB PO SCH (14:01)
--- NOTE | 2017-09-19 15:31 | GDS ---
[f rep st] DISCHARGE SUMMARY DISCHARGE DIAGNOSES: Include: 1. Sick sinus syndrome, status post pacemaker implantation. 2. Wenckebach atrioventricular block. 3. Morbid obesity. 4. Diabetes. 5. Hypothyroidism. 6. Chronic pain with continuous narcotics. 7. Hypertension. 8. Gout. HISTORY OF PRESENT ILLNESS: A 56-year-old female with a history of diabetes and complete heart block , status post pacemaker implantation, who presents with complaints of dizziness and chest pressure. For details of patient's initial presentation, please see the History and Physical dated 09/18/2017. CONSULTATIVE SERVICES: Cardiology. PROCEDURES: None. HOSPITAL COURSE BY ISSUE: Complete heart block with pacemaker placement: The patient has required m ultiple iterations of adjustments of her pacemaker settings for comfort. Patient was evaluated by Ca rdiology as well as the device team. Pacemaker is felt to be functioning properly. Patient was able to ambulate without shortness of breath or dizziness. Her AV delay was reduced, and she is feeling better after this adjustment. The patient will be discharged to follow in the outpatient setting wit h both the device clinic, as well as Dr. Orozco, in the next 3 weeks' time. No changes were made to her chronic medications. Patient will also follow with her primary care provider for ongoing managem ent of her medical comorbidities. MEDICATIONS AT THE TIME OF TRANSFER: Please reference the Medication Reconciliation printed on 09/19. APPOINTMENTS: Include: 1. Dr. Orozco. 2. The device clinic. 3. Her PCP in the next 3-4 weeks. PENDING STUDIES: At the time of this dictation, none. TIME SPENT: I spent greater than 30 minutes in the planning and coordination of this discharge. /[id number]/MODL
[2017-09-19] MEDS ORDERED: IPRATROPIUM/ALBUTEROL 3 ML DEYVIAL IH SCH (21:00)
== END 2017-09-19 13:00 | disposition home or self-care (01) ==
LOC: F2W 20:35
PROVIDERS: ADMIT Internal Medicine; ATTEND Hospitalist
PROC: 4B02XSZ Measurement of Cardiac Pacemaker, External Approach (ICD-10-PCS; principal; 2017-09-18)
DX: I44.1 Atrioventricular block, second degree (principal); E11.9 Type 2 diabetes mellitus without complications; M10.9 Gout, unspecified; J45.909 Unspecified asthma, uncomplicated; I50.9 Heart failure, unspecified; I11.0 Hypertensive heart disease with heart failure; G89.29 Other chronic pain; F11.20 Opioid dependence, uncomplicated; E66.9 Obesity, unspecified; E78.5 Hyperlipidemia, unspecified; G62.9 Polyneuropathy, unspecified; E03.9 Hypothyroidism, unspecified
CPT/HCPCS: 71046; 93005; 99285; G0378; J1650; J1815

== ENCOUNTER 2017-10-02 16:14 | Observation (INO) | payer MEDICAID ==
--- NOTE | 2017-10-02 16:36 | CPEKG ---
Heart Rate: 97 RR Interval: 619 P-R Interval: 208 QRSD Interval: 134 QT Interval: 368 QTC Interval: 468 P [place]: 253 QRS [place]: -51 T Wave [place]: 68 EKG Severity - ABNORMAL ECG - EKG Impression: VENTRICULAR-PACED RHYTHM Electronically Signed By: Kd Vizcaino 02-Oct-2017 21:06:37
--- NOTE | 2017-10-02 17:08 | EDPHY ---
H & P Time Seen by Provider: 10/02/17 16:43 HPI/ROS: Chief complaint. Palpitations HPI. Patient is a 56-year-old female with pacemaker that has been complicated by Domo detachment and needing multiple readjustments. For the last 2 days she at times feels like her heart is racing and flutter in chest. She has had heart rate 220 and has felt near syncopal. Slight shortness of breath. She felt her blood pressure was too low so several days ago she stopped her hydrochlorothiazide but then began to have shortness of breath so started the hydrochlorothiazide again. She feels tired. She has vague anterior chest discomfort that does not radiate. It is not change with position, exertion or breathing. She has an upcoming appointment with cardiology October 13. No fever or cough. No unusual leg pain or swelling. ROS Constitutional. no fever/chills, no weakness Eyes. no problems with vision ENT. no sore throat, no nasal drainage Cardiovascular. Vague anterior chest discomfort and palpitations Respiratory. Shortness of breath without cough Abdominal. no abdominal pain, no nausea/vomiting, no diarrhea . no problems urinating MS. no calf pain/swelling, no neck/back pain, no joint pain Skin. no rash Lymph. no swollen glands Neuro. no headache, no dizziness, no difficulty walking or with speech Past Medical/Surgical History: Diabetes, morbid obesity, asthma, depression, hypothyroid, CHF, anemia, chronic opiate therapy, second-degree and complete heart block. Social History: Single, nonsmoker, no alcohol Smoking Status: Never smoked Physical Exam: General Appearance: Alert well-developed female mild distress vital signs significant for heart rate 105 Eyes: Pupils equal and round no pallor or injection. ENT, Mouth: Mucous membranes are moist. Respiratory: There are no retractions, lungs are clear to auscultation. Cardiovascular: Regular rate and rhythm. Gastrointestinal: Abdomen is soft and nontender, no masses, bowel sounds normal. Neurological: Awake and alert, sensory and motor exams grossly normal. Skin: Warm and dry, no rashes. Musculoskeletal: Neck is supple nontender. Extremities symmetrical, full range of motion. Psychiatric: Patient is oriented X 3, there is no agitation. Constitutional: Initial Vital Signs Temperature (C) 37.5 C 10/02/17 16:22 Heart Rate 105 H 10/02/17 16:22 Respiratory Rate 16 10/02/17 16:22 Blood Pressure 148/103 H 10/02/17 16:22 O2 Sat (%) 97 10/02/17 16:22 O2 Delivery Mode Room Air Allergies/Adverse Reactions: butorphanol [From Stadol] Allergy (Severe, Verified 09/18/17 17:21) Hypotension Penicillins Allergy (Severe, Verified 09/18/17 17:21) Other-Enter Comments vancomycin Allergy (Severe, Verified 09/18/17 17:21) Red Man Syndrome azithromycin Allergy (Intermediate, Verified 09/18/17 17:21) Itching bupropion [From Wellbutrin] Allergy (Intermediate, Verified 09/18/17 17:21) Other-Enter Comments cefazolin [From Ancef] Allergy (Intermediate, Verified 09/18/17 17:21) Itching cephalexin [From Keflex] Allergy (Intermediate, Verified 09/18/17 17:21) Itching clindamycin Allergy (Intermediate, Verified 09/18/17 17:21) Other-Enter Comments codeine Allergy (Intermediate, Verified 09/18/17 17:21) Vomiting lisinopril Allergy (Intermediate, Verified 09/18/17 17:21) Other-Enter Comments meperidine [From Demerol] Allergy (Intermediate, Verified 09/18/17 17:21) Vomiting venlafaxine [From Effexor] Allergy (Intermediate, Verified 09/18/17 17:21) Other-Enter Comments Home Medications: Medication Instructions Recorded Cetirizine [ZyrTEC 10 mg (*)] 10 mg PO HS 07/05/17 Gabapentin [Neurontin] 1,200 mg PO HS 07/05/17 Insulin Detemir [Levemir] 35 unit SC BID 07/05/17 Insulin Regular Human [Humulin R 2 - 10 unit SC ACHS 07/05/17 100 units/ml (*)] LORazepam [Lorazepam] 0.5 mg PO DAILY PRN MDD may repeat 07/05/17 x1 Levothyroxine [Synthroid 50 mcg 50 mcg PO DAILY06 07/05/17 (*)] Pantoprazole Sodium [Protonix 40mg 40 mg PO BID 07/05/17 (*)] Potassium Cl [Klor-Con 20 meq (*)] 20 meq PO BID 07/05/17 Spironolactone [Aldactone 25 MG 25 - 50 mg PO DAILY PRN 07/05/17 (*)] metFORMIN HCL [Metformin HCl] 1,000 mg PO BIDMEAL 07/05/17 morphINE SR [Ms Contin/Oramorph 15 15 mg PO HS 07/05/17 mg (*)] oxyCODONE IR [Oxycodone Ir (*)] 5 mg PO Q4 PRN 07/05/17 Albuterol [Ventolin Hfa Inhaler] 2 puffs IH Q6 PRN 07/06/17 Allopurinol [Allopurinol 300 MG 300 mg PO DAILY 07/06/17 (RX)] Eszopiclone [Lunesta] 3 mg PO HS 07/06/17 Famotidine [Pepcid 20 MG (*)] 20 mg PO DAILY PRN 07/06/17 Gabapentin [Neurontin] 600 mg PO BID PRN 07/06/17 Ipratropium/Albuterol [Duoneb (*)] 3 ml IH HS 07/06/17 Multivitamin with Iron 1 tab PO DAILY 07/06/17 [Multivitamins with Iron] Topiramate [Topamax 100MG (*)] 100 mg PO HS 07/06/17 ZOLMitriptan [Zomig 2.5MG (*)] 2.5 mg PO PRN PRN MDD may repeat x1 07/06/17 morphINE SR [Ms Contin/Oramorph 15 15 mg PO DAILY PRN 07/06/17 mg (*)] Hydrochlorothiazide [HCTZ (*)] 25 mg PO DAILY 08/06/17 Aspirin EC [Aspirin EC 81 mg (*)] 81 mg PO BID 08/11/17 Calcium Carbonate [Tums 500MG (*)] 500 - 1,000 mg PO BID PRN 08/11/17 Sennosides/Docusate Sodium 1 each PO BID PRN 08/11/17 [Senokot-S] Herbals/Supplements -Info Only 1 ea PO DAILY 09/18/17 Vilazodone HCl [Viibryd] 20 mg PO DAILY 09/18/17 Medical Decision Making - Diagnostics EKG Interpretation: EKG interpreted by me shows a ventricular paced rhythm with left axis deviation. Interventricular conduction delay. No significant ST elevation or depression. No arrhythmia. The rate is 97 Imaging Results: Imaging Impressions Chest X-Ray 10/02/17 17:53 Impression: Clear lungs. Negative portable chest. Chest x-ray interpreted by me is normal. No pneumonia. Pacer leads appear to be intact. Procedures: IV normal saline, monitor ED Course/Re-evaluation: Patient has been interrogated by [employer]. The pacer itself appears to be working fine. Patient has episodes of sinus tach going to 130. Patient and I have discussed labs and imaging studies. We discussed treatment plan including recommendation for admission. She expresses understanding and agreement I consulted and discussed the case with Dr. Cedillo, cardiology who will see the patient in consultation I consulted discussed case with Dr. Hanley, hospitalist who agrees to the admission. Differential Diagnosis: I considered pacemaker malfunction, pacemaker lead displacement, pulmonary embolus, congestive heart failure, acute coronary syndrome. Patient is having runs of sinus tachycardia to 130 but no evidence for pacemaker malfunction - Data Points Laboratory Results: Laboratory Results 10/02/17 16:36 10/02/17 16:36 10/02/17 10/02/17 10/02/17 16:36 16:36 16:36 WBC 10.54 10^3/uL H 10^3/uL (3.80-9.50) RBC 4.52 10^6/uL 10^6/uL (4.18-5.33) Hgb 12.7 g/dL g/dL (12.6-16.3) Hct 40.4 % % (38.0-47.0) MCV 89.4 fL fL (81.5-99.8) MCH 28.1 pg pg (27.9-34.1) MCHC 31.4 g/dL L g/dL (32.4-36.7) RDW 15.6 % H % (11.5-15.2) Plt Count 266 10^3/uL 10^3/uL (150-400) MPV 12.2 fL H fL (8.7-11.7) Neut % (Auto) 71.2 % % (39.3-74.2) Lymph % (Auto) 20.3 % % (15.0-45.0) [place] % (Auto) 5.7 % % (4.5-13.0) Eos % (Auto) 1.9 % % (0.6-7.6) Baso % (Auto) 0.3 % % (0.3-1.7) Nucleat RBC Rel Count 0.0 % % (0.0-0.2) Absolute Neuts (auto) 7.51 10^3/uL H 10^3/uL (1.70-6.50) Absolute Lymphs (auto) 2.14 10^3/uL 10^3/uL (1.00-3.00) Absolute Monos (auto) 0.60 10^3/uL 10^3/uL (0.30-0.80) Absolute Eos (auto) 0.20 10^3/uL 10^3/uL (0.03-0.40) Absolute Basos (auto) 0.03 10^3/uL 10^3/uL (0.02-0.10) Absolute Nucleated RBC 0.00 10^3/uL 10^3/uL (0-0.01) Immature Gran % 0.6 % % (0.0-1.1) Immature Gran # 0.06 10^3/uL 10^3/uL (0.00-0.10) D-Dimer 0.40 ug/mLFEU ug/mLFEU (0.00-0.50) Sodium 144 mEq/L mEq/L (135-145) Potassium 4.2 mEq/L mEq/L (3.5-5.2) Chloride 109 mEq/L mEq/L (97-110) Carbon Dioxide 21 mEq/l L mEq/l (22-31) Anion Gap 14 mEq/L mEq/L (8-16) BUN 11 mg/dL mg/dL (7-23) Creatinine 0.8 mg/dL mg/dL (0.6-1.0) Estimated GFR > 60 Glucose 174 mg/dL H mg/dL (70-100) Calcium 9.1 mg/dL mg/dL (8.5-10.4) Troponin I < 0.012 ng/mL ng/mL (0.000-0.034) NT-Pro-B Natriuret Pep 120 pg/mL pg/mL (0-125) Departure - Departure Disposition: [facility] Inpatient Acute Clinical Impression: Palpitations Condition: Fair Referrals: RONALDO BROWN [Other] - As per Instructions
[2017-10-02 18:03] LABS: PLATELET COUNT 266 10^3/uL (150-400)
[2017-10-02] MEDS ORDERED: ACETAMINOPHEN 325 MG TAB PO PRN (20:01)
[2017-10-02] MEDS ORDERED: ONDANSETRON DISINTEGRATING 4 MG TAB PO PRN (20:01)
[2017-10-02] MEDS ORDERED: ONDANSETRON 4 MG/2 ML VIAL IVP PRN (20:01)
[2017-10-02] MEDS ORDERED: FAMOTIDINE 20 MG TAB PO PRN (21:13)
[2017-10-02] MEDS ORDERED: LORazepam 0.5 MG TAB PO PRN (21:13)
[2017-10-02] MEDS ORDERED: morphINE SR 15 MG TAB PO PRN (21:13)
[2017-10-02] MEDS ORDERED: IPRATROPIUM/ALBUTEROL 3 ML DEYVIAL IH PRN (21:13)
[2017-10-02] MEDS ORDERED: ALBUTEROL 60 PUFFS/8 GM MDI IH PRN (21:13)
[2017-10-02] MEDS ORDERED: SENNOSIDES/DOCUSATE SODIUM TAB PO PRN (21:13)
[2017-10-02] MEDS ORDERED: oxyCODONE IR 5 MG TAB PO PRN (21:13)
[2017-10-02] MEDS ORDERED: D50W 25 GM/50 ML VIAL IVP PRN (21:15)
[2017-10-02] MEDS ORDERED: GABAPENTIN 300 MG CAP PO PRN (22:00)
[2017-10-02] MEDS ORDERED: TOPIRAMATE 100 MG TAB PO SCH (23:00)
[2017-10-02] MEDS ORDERED: CETIRIZINE 10 MG TAB PO SCH (23:00)
[2017-10-02] MEDS: metFORMIN HCL 500 MG TAB PO SCH (23:09)
[2017-10-02] MEDS: morphINE SR 15 MG TAB PO SCH (23:10)
[2017-10-02] MEDS: PANTOPRAZOLE SODIUM 40 MG TAB PO SCH (23:11)
[2017-10-02] MEDS: INSULIN GLARGINE 100 UNITS/ML UNIT SC SCH (23:16)
[2017-10-02] MEDS: POTASSIUM CL 20 MEQ TAB PO SCH ×2 (23:32→23:52)
--- NOTE | 2017-10-03 00:40 | GHP ---
[f rep st] HISTORY AND PHYSICAL DATE OF ADMISSION: 10/02/2017 CHIEF COMPLAINT: Palpitations. HISTORY OF PRESENT ILLNESS: A 56-year-old female with history of diabetes, complete heart block with pacemaker placement, who was readmitted in July with lead detachment. It was replaced and then readmitted subsequently with chest palpitations and indeterminate troponin. She was recently admitted September 18, with complaints of dizziness and chest pressure. Pacemaker was evaluated at that time, and was functioning properly. Her AV delay was reduced. She was seen by Dr. Smith on September 24, was found to be in sinus tachycardia. She was given a magnet to nany any symptoms. Over the last couple days, she has felt like her heart is racing and feels a flutter in her chest. She reports heart rate to 220s, and felt like she was going to pass out with some shortness of breath. Last week, she felt her blood pressure was too low, so she stopped her hydrochlorothiazide for 3 days, but then started having leg swelling and shortness of breath, so restarted. She overall feels tired. She has vague anterior chest discomfort that does not radiate and is not associated with activity. Recent lab check at her PCP, showed a normal TSH. Denies any fevers, chills, or sweats. No nausea, vomiting, diarrhea. No dysuria. Patient's pacer was interrogated by [employer] and seems to be working fine. She has had episodes of sinus tachycardia up to 130s. REVIEW OF SYSTEMS: I completed a 10-point review of system. PAST MEDICAL HISTORY: 1. Diabetes. 2. Morbid obesity. 3. Asthma. 4. Depression. 5. Hypothyroidism. 6. CHF. 7. Anemia. 8. Chronic opioid therapy. 9. Wenckebach heart block. 10. Complete heart block. 11. Gout. 12. Hypertension. 13. Paroxysmal atrial fibrillation. 14. JONNY on CPAP. PAST SURGICAL HISTORY: 1. Tonsillectomy. 2. Appendectomy. 3. Cholecystectomy. 4. Total hysterectomy. 5. Left TKA. 6. Left rib resection with subsequent pneumothorax. 7. Several D and C's. 8. Rectal cyst. correct past medical history hypothyroidism. ALLERGIES: See [employer]. HOME MEDICATIONS: Oxycodone 5 mg q.4 hours p.r.n., MS Contin 50 mg at bedtime, 15 mg as needed, metformin 1000 mg b.i.d., Viibryd 20 mg daily, Topamax 100 mg at bedtime, spironolactone 20-50 p.r.n., docusate, senna, Klor-Con 20 mEq b.i.d. , Protonix 40 mg b.i.d., multivitamin, levothyroxine 50 mcg daily, lorazepam 0.5 mg b.i.d. p.r.n. ipratropium nebs as needed, regular insulin 2-10 units sliding scale, Levemir 35 units subcu b.i.d., hydrochlorothiazide 25 mg daily, herbal supplements, gabapentin 1200 mg at bedtime, 600 mg b.i.d. p.r.n., Pepcid , Lunesta 3 mg at bedtime, cetirizine, calcium carbonate as needed, aspirin 81 mg, allopurinol 300 mg daily, albuterol inhaler. SOCIAL HISTORY: Lives in [place]. Occasional alcohol. No tobacco or illicits. PHYSICAL EXAMINATION: VITAL SIGNS: Temperature 37.3, blood pressure 144/88, heart rate 77-105, respirations 18, 93% on room air. GENERAL: Obese female, sitting up in bed, no acute distress. HEENT: PERRLA. EOMI. Oropharynx clear. CV: Regular rate and rhythm. No murmurs, gallops, or rubs. LUNGS: Clear. No crackles or wheezing. ABDOMEN: Soft, nontender. : No suprapubic tenderness. MUSCULOSKELETAL: 5/5 upper and lower extremity strength. NEUROLOGIC: 2 through 12 intact. PSYCH: Alert and oriented x3. LABS: WBCs 10, hemoglobin 12, hematocrit 40, platelets 266. D-dimer 0.40. Sodium 144, potassium 4.2, chloride 109, carbon dioxide 21, creatinine 0.8, glucose 174. Troponin less than 0.012. BNP is 120. Chest x-ray is personally reviewed by me. Lungs clear. No evidence of effusion or opacity. EKG, personally reviewed by me. V paced. ASSESSMENT AND PLAN: 1. Sinus Tachycardia: normal pacemaker interrogation. Wonder if she is mildly dehydrated, though labs look okay. She had a negative D-dimer. No evidence of an infection. Afebrile without leukocytosis. Dr. Cedillo with Cardiology will see the patient in the morning. Recent TSH, per patient report was normal. 2. History of sick sinus syndrome, Wenckebach pacemaker in place, has had multiple revisions. She is followed closely by Cardiology. 3. Diabetes. Resume home medications. Glargine here since Levemir not on formulary. 4. Depression, anxiety. Resume home medications. 5. History of complete heart block, pacemaker implantation July 2017. Had a lead dislodgement and revision in August. 6. Paroxysmal atrial fibrillation. This has been discussed with Dr. Ellsworth in the past. No anticoagulation, felt that it was likely due to this atrial lead dislodgement. 7. Obstructive sleep apnea on CPAP. 8. Chronic pain syndrome. Resume home medications with bowel regimen. 9. Obesity. Counseled on diet and exercise. 10. Hypertension. Resume home medications. DIET: Diabetic. DEEP VENOUS THROMBOSIS PROPHYLAXIS: Lovenox. DISPOSITION: Patient warrants observation admission for sinus tachycardia. Telemetry and further evaluation by Cardiology. Can likely discharge in the morning. /[id number]/MODL MTDD
[2017-10-03] MEDS ORDERED: LEVOTHYROXINE 50 MCG TAB PO SCH (06:00)
[2017-10-03] MEDS: INSULIN LISPRO 100 UNIT/ML SC SCH ×2 (08:00→14:53)
[2017-10-03] MEDS ORDERED: metFORMIN HCL 500 MG TAB PO SCH (08:00)
[2017-10-03] MEDS ORDERED: MULTIVITAMINS 1 EACH TAB PO SCH (09:00)
[2017-10-03] MEDS ORDERED: Herbals/Supplements -Info Only PO SCH (09:00)
[2017-10-03] MEDS ORDERED: ASPIRIN EC 81 MG TAB PO SCH (09:00)
[2017-10-03] MEDS ORDERED: ALLOPURINOL 300 MG TAB PO SCH (09:00)
[2017-10-03] MEDS ORDERED: HYDROCHLOROTHIAZIDE 25 MG TAB PO SCH (09:00)
[2017-10-03] MEDS ORDERED: morphINE SR 15 MG TAB PO SCH (09:00)
[2017-10-03] MEDS ORDERED: Vilazodone Hcl [Viibryd] 20 MG PO SCH (09:00)
[2017-10-03] MEDS ORDERED: PANTOPRAZOLE SODIUM 40 MG TAB PO SCH (09:00)
[2017-10-03] MEDS ORDERED: ENOXAPARIN 60 MG/0.6 ML SYR SC SCH (09:00)
[2017-10-03] MEDS: PANTOPRAZOLE SODIUM 40 MG TAB PO SCH (09:49)
[2017-10-03] MEDS: morphINE SR 15 MG TAB PO SCH (09:49)
[2017-10-03] MEDS: INSULIN GLARGINE 100 UNITS/ML UNIT SC SCH (09:51)
[2017-10-03 10:36] VITALS: RESP 12; TEMP 98.3
--- NOTE | 2017-10-03 12:43 | PDCARPN ---
Cardiology Progress Note Chief Complaint: No cardiovascular complaints were voiced today. Recently, two days of "fast heart rates" had been noted. Assessment/Plan: Assessment: Patient is a 56 y/o female with history of HTN, DM, obesity, pAF, JONNY with CPAP use, depression, asthma, CHF (reported in admission note), and CHB s/p PPM. PPM implant had some complications in that there was a lead dislodgement noted ( with secondary procedure to reposition). There have been several admissions for issues related to palpitations and adjustments to the settings on the pacer have been implemented, and according to the patient, at present, her "...heart and the pacer are not fighting with each other...". About two days prior to this admission, the patient noted palpitations. Interrogation of the PPM in the ER with "sinus tachycardia" noted, and no other pathology arrhythmias were appreciated. Today, the patient is feeling well. No chest pains or pressure. No PND or orthopnea. Patient had been on CCB therapy in the past, but noted that she felt fatigue (more than "baseline"). Plan: (1) Would arrange for patient to have 30 day event monitor - this has been set up through [facility] (2) Would provide patient with script for metoprolol tartrate (25 mg) and have 12.5 mg dosed one to two weeks after wearing the monitor to see "baseline" activity (3) Maintain scheduled pacer interrogations (4) Continue with aggressive DM therapy (5) Continue CPAP for JONNY history (6) Would trial low dose beta blockers (12.5 mg PO QHS) for the third week of the 30 day monitor and assess symptoms (7) Maintain outpatient appointment with cardiology as scheduled. Subjective: No cardiovascular complaints today. Reviewed/Discussed With: hospitalist Objective: Vital Signs (8 Hrs) Temp Pulse Resp BP Pulse Ox 10/03/17 10:35 36.8 C 63 12 123/73 H 93 Intake/Output (24 Hrs) 10/02/17 10/03/17 10/04/17 05:59 05:59 05:59 Intake Total 500 Output Total 400 Balance 100 Intake: Oral (ml) 500 Output: Urine (ml) 400 Toilet 400 Other: Weight 144 kg Intake Quantity Yes Sufficient Result Diagrams: 10/02/17 16:36 10/02/17 16:36 Telemetry: AV sequential pacing - Physical Exam Constitutional: WDWN, healthy appearing, no apparent distress, obese Eyes: PERRL, EOMI Ears, Nose, Mouth, Throat: moist mucous membranes Cardiovascular: regular rate and rhythm, no murmurs, no rubs, no gallops, pulses symmetric bilat, No jugular vein distention Peripheral Pulses: 2+: dorsalis-pedis (R), dorsalis-pedis (L) Respiratory: clear to auscultate bilat, reduced air movement Gastrointestinal: normoactive bowel sounds Skin: no rashes, no edema Musculoskeletal: no muscular tenderness, no joint effusions Neurologic: AAOx3, CN II-XII grossly intact Psychiatric: cooperative, interactive, following commands ICD10 Worksheet Patient Problems: Problems Problem Status Onset Palpitations Acute Bradycardia Acute Elevated troponin Acute Hypoxemia Acute Pacemaker malfunction Acute
[2017-10-03 13:54] VITALS: BP 128/74; PULSE 70; O2SAT 94
[2017-10-03] MEDS: metFORMIN HCL 500 MG TAB PO SCH (14:52)
--- NOTE | 2017-10-03 15:48 | ASMTCASEMG ---
Living Arrangements What is your living Answers: Alone arrangement? Who do you live with? Type Of Residence What kind of residence do Answers: House you live in? Discharge Plan Comments Coordination Status Comments Notes: Pt is a 56 y/o female admitted for palpitations. CM met w/ pt for dispo planning and provided emotional support. Pt is uncertain if she would like an outpatient behavioral health specialist through [facility]. Pt reports that she has been working with a therapist for a year. Pt reports that she has weekly appointments w/ her. Pt reports that she has a family hx of suicides. Pt reports that she has a desire to live. Pt shared hobbies that she enjoys such as knitting, cross stitch and crocheting. Pt will most likely not have any d/c needs. CM available for changes. Plan: Independent Date Signed: 10/03/2017 03:47 PM Electronically Signed By:BUNNY Zamudio
--- NOTE | 2017-10-03 20:33 | GDS ---
[f rep st] DISCHARGE SUMMARY DISCHARGE DIAGNOSES: 1. Palpitations. 2. Sick sinus syndrome, status post pacemaker. 3. Obstructive sleep apnea, on continuous positive airway pressure. 4. Morbid obesity. 5. Paroxysmal atrial fibrillation. 6. Continuous narcotic dependency. 7. Diabetes. HISTORY: The patient is a 56-year-old female who recently had a pacemaker placed. She has had multi ple recurrent admissions for complications with pacemaker lead placement. She continues to have palp itations, although underlying etiology of these palpitations has not been found. She was admitted to the hospital overnight. Pacemaker interrogation showed sinus tachycardia. Cardiology saw her in co nsultation. They have arranged a 30-day event monitor. They recommend she discharge home with a pre scription for metoprolol that she can start in 1 week, after 1 week of event monitoring without medic ation. She will follow up closely as an outpatient with Dr. Orozco. DISCHARGE MEDICATIONS: Please see computerized record for full detailed list. New medications: Met oprolol 25 mg tablets 1/2 tablet p.o. b.i.d. as needed for palpitations to initiate in 1 week. The r emainder of her medications will remain as they were prior to hospitalization. ADDITIONAL DISCHARGE INSTRUCTIONS: 1. Event monitoring with [facility] to be arranged before discharge. 2. Follow up with Dr. Orozco in 1 week. Greater than 30 minutes' time was spent arranging this discharge. Patient was seen and examined by rey wan on day of discharge. /[id number]/MODL
[2017-10-03] MEDS ORDERED: ZOLPIDEM TARTRATE 5 MG TAB PO SCH (21:00)
[2017-10-03] MEDS ORDERED: TOPIRAMATE 100 MG TAB PO SCH (21:00)
[2017-10-03] MEDS ORDERED: CETIRIZINE 10 MG TAB PO SCH (21:00)
[2017-10-03] MEDS ORDERED: GABAPENTIN 400 MG CAP PO SCH (21:00)
== END 2017-10-03 18:01 | disposition home or self-care (01) ==
LOC: INTOOBSV 19:38 → F2W 21:51
PROVIDERS: ADMIT Internal Medicine; ATTEND Internal Medicine
DX: R00.2 Palpitations (principal); E11.9 Type 2 diabetes mellitus without complications; E66.01 Morbid (severe) obesity due to excess calories; Z95.0 Presence of cardiac pacemaker; G47.33 Obstructive sleep apnea (adult) (pediatric); I48.0 Paroxysmal atrial fibrillation; F11.20 Opioid dependence, uncomplicated; I50.9 Heart failure, unspecified; F32.9 Major depressive disorder, single episode, unspecified; D64.9 Anemia, unspecified
CPT/HCPCS: 71045; 93005; G0378; J1650; J1815

== ENCOUNTER 2017-10-24 07:25 | Observation (INO) | payer MEDICAID ==
[~2017-10-24 07:25] MED LIST: ACETAMINOPHEN 325 MG TAB PO PRN; ASPIRIN EC 325 MG TAB PO ONE; DIAZEPAM 5 MG TAB PO ONE; NITROGLYCERIN 0.4 MG BTL SL PRN; NS 1,000 ML IV SCH; TEMAZEPAM 15 MG CAP PO PRN; diphenhydrAMINE 25 MG CAP PO ONE
--- NOTE | 2017-10-24 08:13 | CPEKG ---
Heart Rate: 71 RR Interval: 845 P-R Interval: 272 QRSD Interval: 136 QT Interval: 436 QTC Interval: 474 P [place]: 49 QRS [place]: -57 T Wave [place]: 58 EKG Severity - ABNORMAL ECG - EKG Impression: ATRIAL-SENSED VENTRICULAR-PACED COMPLEXES EKG Impression: No significant change from October 02, 2017 Electronically Signed By: Kd Milligan 24-Oct-2017 10:37:50
[2017-10-24] MEDS ORDERED: LIDOCAINE 1% 300 MG/30 ML SDV ONE (08:23)
[2017-10-24] MEDS ORDERED: IOPAMIDOL (ISOVUE-370) 150 ML BTL IV ONE (08:24)
[2017-10-24] MEDS ORDERED: ASPIRIN EC 325 MG TAB PO ONE (08:24)
[2017-10-24] MEDS ORDERED: diphenhydrAMINE 25 MG CAP PO ONE (08:24)
[2017-10-24] MEDS ORDERED: DIAZEPAM 5 MG TAB ONE (08:24)
[2017-10-24] MEDS ORDERED: FAMOTIDINE 20 MG TAB ONE (08:24)
[2017-10-24] MEDS ORDERED: VERAPAMIL 5 MG/2 ML VIAL ONE (08:24)
[2017-10-24] MEDS ORDERED: HEPARIN 10,000 UNIT/10 ML MDV (1,000 UNIT/ML) ONE (08:24)
[2017-10-24 08:38] LABS: PLATELET COUNT 259 10^3/uL (150-400)
[2017-10-24 08:43] LABS: INR 0.93 (0.83-1.16); PROTIME(PATIENT) 12.7 SEC (12.0-15.0)
[2017-10-24] MEDS ORDERED: MIDAZOLAM 2 MG/2 ML VIAL IVP ONE (08:43)
--- NOTE | 2017-10-24 08:45 | PDANEPAE ---
ANE History of Present Illness CHF ANE Past Medical History - Cardiovascular History Hx Hypertension: Yes Hx Arrhythmias: Yes Hx Chest Pain: No Hx Coronary Artery / Peripheral Vascular Disease: No Hx CHF / Valvular Disease: No Hx Palpitations: No Cardiovascular History Comment: Recent pacemaker placement now needing a lead revision/repositioning. - Pulmonary History Hx COPD: No Hx Asthma/Reactive Airway Disease: No Hx Recent Upper Respiratory Infection: No Hx Oxygen in Use at Home: Yes Hx Sleep Apnea: Yes - Endocrine History Hx Diabetes: Yes - Renal History Renal History Comment: Stones - Liver History Hx Hepatic Disorders: No - Neurological & Psychiatric Hx Hx Neurological and Psychiatric Disorders: No - Cancer History Hx Cancer: No - Congenital Disorder History Hx Congenital Disorders: No - GI History Hx Gastrointestinal Disorders: No - Other Health History Other Health History: obesity - Chronic Pain History Chronic Pain: Yes (left sub scapular) ANE Review of Systems Review of Systems: - Exercise capacity METS (RN): 2 METS - Systems Constitutional: Reports: weakness Cardiac: Reports: chest pain ANE Patient History - Allergies Allergies/Adverse Reactions: butorphanol [From Stadol] Allergy (Severe, Verified 10/21/17 11:50) Hypotension Penicillins Allergy (Severe, Verified 10/21/17 11:50) Other-Enter Comments vancomycin Allergy (Severe, Verified 10/21/17 11:50) Red Man Syndrome azithromycin Allergy (Intermediate, Verified 10/21/17 11:50) Itching bupropion [From Wellbutrin] Allergy (Intermediate, Verified 10/21/17 11:50) Other-Enter Comments cefazolin [From Ancef] Allergy (Intermediate, Verified 10/21/17 11:50) Itching cephalexin [From Keflex] Allergy (Intermediate, Verified 10/21/17 11:50) Itching clindamycin Allergy (Intermediate, Verified 10/21/17 11:50) Other-Enter Comments codeine Allergy (Intermediate, Verified 10/21/17 11:50) Vomiting lisinopril Allergy (Intermediate, Verified 10/21/17 11:50) Other-Enter Comments meperidine [From Demerol] Allergy (Intermediate, Verified 10/21/17 11:50) Vomiting venlafaxine [From Effexor] Allergy (Intermediate, Verified 10/21/17 11:50) Other-Enter Comments - Home Medications Home Medications: Cetirizine [ZyrTEC 10 mg (*)] 10 mg PO HS 07/05/17 [Last Taken 10/01/17] Gabapentin [Neurontin] 1,200 mg PO HS 07/05/17 [Last Taken 10/01/17] Insulin Detemir [Levemir] 35 unit SC BID 07/05/17 [Last Taken 10/02/17] Insulin Regular Human [Humulin R 100 units/ml (*)] 2 - 10 unit SC ACHS 07/05/17 [Last Taken 10/02/17 5 units] LORazepam [Lorazepam] 0.5 mg PO BID PRN 07/05/17 [Last Taken 10/02/17] Levothyroxine [Synthroid 50 mcg (*)] 50 mcg PO DAILY06 07/05/17 [Last Taken ] Pantoprazole Sodium [Protonix 40mg (*)] 40 mg PO BID 07/05/17 [Last Taken ] Potassium Cl [Klor-Con 20 meq (*)] 40 meq PO BID 07/05/17 [Last Taken 10/02/17] Spironolactone [Aldactone 25 MG (*)] 25 mg PO DAILY 07/05/17 [Last Taken 3 Days Ago ~08/03/17] metFORMIN HCL [Metformin HCl] 1,000 mg PO BIDMEAL 07/05/17 [Last Taken 10/02/17] morphINE SR [Ms Contin/Oramorph 15 mg (*)] 15 mg PO HS 07/05/17 [Last Taken ] oxyCODONE IR [Oxycodone Ir (*)] 5 mg PO Q4 PRN 07/05/17 [Last Taken 10/02/17] Albuterol [Ventolin Hfa Inhaler] 2 puffs IH Q6 PRN 07/06/17 [Last Taken 08/10/17 ] Allopurinol [Allopurinol 300 MG (RX)] 300 mg PO DAILY 07/06/17 [Last Taken 10/02] Eszopiclone [Lunesta] 3 mg PO HS 07/06/17 [Last Taken 10/01/17] Famotidine [Pepcid 20 MG (*)] 20 mg PO BID PRN 07/06/17 [Last Taken 10/01/17] Gabapentin [Neurontin] 600 - 1,200 mg PO BID PRN 07/06/17 [Last Taken 10/01/17] Ipratropium/Albuterol [Duoneb (*)] 3 ml IH HS PRN 07/06/17 [Last Taken 10/01/17] Multivitamin with Iron [Multivitamins with Iron] 1 tab PO BID 07/06/17 [Last Taken 10/02/17] Topiramate [Topamax 100MG (*)] 100 mg PO HS 07/06/17 [Last Taken 10/01/17] morphINE SR [Ms Contin/Oramorph 15 mg (*)] 15 mg PO DAILY PRN 07/06/17 [Last Taken 10/01/17] Hydrochlorothiazide [HCTZ (*)] 25 mg PO DAILY 08/06/17 [Last Taken 10/02/17] Aspirin EC [Aspirin EC 81 mg (*)] 81 mg PO BID 08/11/17 [Last Taken 10/02/17] Calcium Carbonate [Tums 500MG (*)] 500 - 1,000 mg PO BID PRN 08/11/17 [Last Taken 09/18/17] Sennosides/Docusate Sodium [Senokot-S] 1 each PO BID PRN 08/11/17 [Last Taken Unknown] Herbals/Supplements -Info Only 1 ea PO DAILY 09/18/17 [Last Taken 10/02/17] Vilazodone HCl [Viibryd] 20 mg PO DAILY 09/18/17 [Last Taken 10/02/17] Metoprolol Tartrate 37.5 mg PO BID 10/21/17 [Last Taken Unknown] Torsemide [Demadex] 20 mg PO DAILY 10/21/17 [Last Taken Unknown] - Smoking Hx Smoking Status: Never smoked ANE Labs/Vital Signs - Labs Result Diagrams: 10/24/17 08:15 10/24/17 08:15 - Vital Signs Height: 162.2 cm Weight: 145.8 kg ANE Physical Exam - Airway Neck exam: decreased ROM Mallampati Score: Class 3 Mouth exam: normal dental/mouth exam - Pulmonary Pulmonary: no respiratory distress - Cardiovascular Cardiovascular: regular rate and rhythym - ASA Status ASA Status: IV ANE Anesthesia Plan Anesthesia Plan: MAC
[2017-10-24] MEDS: FAMOTIDINE 20 MG TAB PO ONE ×2 (08:56→08:57)
[2017-10-24] MEDS ORDERED: MIDAZOLAM 2 MG/2 ML VIAL ONE ×2 (09:06→09:11)
[2017-10-24] MEDS ORDERED: fentaNYL 100 MCG/2 ML INJ ONE (09:11)
[2017-10-24] MEDS ORDERED: NALOXONE HCL 0.4 MG/ML INJ IVP PRN (10:29)
--- NOTE | 2017-10-24 10:41 | POSTANESTH ---
Post Anesthetic Evaluation Cardiovascular Status: Normal, Stable Respiratory Status: Normal, Stable Level of Consciousness/Mental Status: Can Participate in Eval Pain Control: Adequate, Prn Tx Ordered Nausea/Vomiting Control: Adequate, Prn Tx Ordered Complications Possibly Related to Anesthesia: None Noted
--- NOTE | 2017-10-24 11:05 | CPIP ---
[f rep st] INVASIVE CARDIAC PROCEDURE DATE OF PROCEDURE: 10/24/2017 PROCEDURE: 1. Coronary angiography. 2. Right heart catheterization. INDICATION: Dyspnea on exertion. ACCESS: Patient was prepped and draped in the sterile fashion. 1% lidocaine was used to anesthetize the left radial region. A 5-Bhutanese introducer sheath was placed selectively in the left radial arter y via modified Seldinger technique. 1% lidocaine was also used to anesthetize the right brachial reg ion. A 6-Bhutanese introducer sheath was placed selectively into the right brachial vein via modified S eldinger technique. CORONARY ANGIOGRAPHY: A 6-Bhutanese JL3.5 catheter was advanced to the left main coronary artery and im ages obtained. The left main coronary artery bifurcated into an LAD and circumflex coronary arteries . The left main coronary artery appeared normal. The left anterior descending coronary artery gave rise to 2 prominent diagonal branches. The left anterior descending coronary artery and its compleme nt of diagonal branches appeared normal. The circumflex coronary artery was a large vessel but was n ondominant. Circumflex coronary artery gave rise to 2 prominent OM branches. The circumflex coronar y artery and its OM branches appeared normal. A 6-Bhutanese JR4 was advanced to the right coronary aidan ry and images obtained. The right coronary artery was dominant. The right coronary artery appeared normal. RIGHT HEART CATHETERIZATION: Right heart catheter was advanced in the right atrium and pressure obta ined. The right atrial pressure was 14 mmHg. The catheter was then advanced in the right ventricle and pressure obtained. The right ventricular pressure was 49/16 mmHg. The catheter was then advance d in the pulmonary artery and pressure obtained. The pulmonary artery pressure was 48/29 mmHg. The mean pulmonary artery pressure was 35 mmHg. The pulmonary artery saturation was 75%. Catheter was th en advanced in the wedge position and pressure obtained. The pulmonary capillary wedge pressure was 23 mmHg. COMPLICATIONS: None. CONCLUSION: 1. Normal coronary arteries. 2. Pulmonary hypertension with a mean pulmonary artery pressure of 35 mmHg. The transpulmonary gradi ent is 12 mmHg. /[id number]/MODL
[2017-10-24] MEDS ORDERED: ONDANSETRON 4 MG/2 ML VIAL IVP PRN (11:44)
[2017-10-24] MEDS ORDERED: ATROPINE SULFATE 1 MG/10 ML SYR IVP PRN (11:44)
[2017-10-24] MEDS ORDERED: IPRATROPIUM/ALBUTEROL 3 ML DEYVIAL IH PRN (11:46)
[2017-10-24] MEDS ORDERED: LORazepam 0.5 MG TAB PO PRN (11:46)
[2017-10-24] MEDS ORDERED: morphINE SR 15 MG TAB PO PRN (11:46)
[2017-10-24] MEDS ORDERED: oxyCODONE IR 5 MG TAB PO PRN (11:46)
[2017-10-24] MEDS ORDERED: SENNOSIDES/DOCUSATE SODIUM TAB PO PRN (11:46)
[2017-10-24] MEDS ORDERED: FAMOTIDINE 20 MG TAB PO PRN (11:46)
[2017-10-24] MEDS ORDERED: ZOLPIDEM TARTRATE 5 MG TAB PO PRN (13:11)
[2017-10-24] MEDS ORDERED: GABAPENTIN 300 MG CAP PO PRN (13:15)
[2017-10-24] MEDS ORDERED: ALBUTEROL 60 PUFFS/8 GM MDI IH PRN (13:15)
[2017-10-24] MEDS: INSULIN REGULAR HUMAN 100 UNIT/ML UNIT SC SCH (14:17)
[2017-10-24] MEDS ORDERED: D50W 25 GM/50 ML SYR IVP PRN (18:32)
[2017-10-24] MEDS: INSULIN REGULAR, HUMAN 100 UNIT/1 ML VIAL STANDARD SC SCH ×2 (18:56→21:01)
[2017-10-24] MEDS: INSULIN GLARGINE 100 UNITS/ML SYRINGE SC SCH (20:49)
[2017-10-24] MEDS: METOPROLOL TARTRATE 25 MG TAB PO SCH (20:50)
[2017-10-24] MEDS: POTASSIUM CL 20 MEQ TAB PO SCH (20:51)
[2017-10-24] MEDS: PANTOPRAZOLE SODIUM 40 MG TAB PO SCH (20:51)
[2017-10-24] MEDS: ASPIRIN EC 81 MG TAB PO SCH (20:51)
[2017-10-24] MEDS ORDERED: CETIRIZINE 10 MG TAB PO SCH (21:00)
[2017-10-24] MEDS ORDERED: GABAPENTIN 400 MG CAP PO SCH (21:00)
[2017-10-24] MEDS ORDERED: morphINE SR 15 MG TAB PO SCH (21:00)
[2017-10-24] MEDS ORDERED: TOPIRAMATE 100 MG TAB PO SCH (21:00)
[2017-10-24] MEDS ORDERED: NON-FORMULARY NEW DRUG (Insulin Detemir [Levemir] 35 UNIT) SC SCH (21:00)
[2017-10-24] MEDS: MULTIVITAMIN WITH IRON PO SCH (21:27)
[2017-10-25] MEDS ORDERED: LEVOTHYROXINE 50 MCG TAB PO SCH (06:00)
[2017-10-25] MEDS: INSULIN REGULAR, HUMAN 100 UNIT/1 ML VIAL STANDARD SC SCH (07:24)
[2017-10-25] MEDS: INSULIN REGULAR HUMAN 100 UNIT/ML UNIT SC SCH (07:31)
[2017-10-25] MEDS: INSULIN GLARGINE 100 UNITS/ML SYRINGE SC SCH (08:01)
[2017-10-25] MEDS: METOPROLOL TARTRATE 25 MG TAB PO SCH (08:04)
[2017-10-25] MEDS: ASPIRIN EC 81 MG TAB PO SCH (08:04)
[2017-10-25] MEDS: POTASSIUM CL 20 MEQ TAB PO SCH (08:06)
[2017-10-25 08:07] VITALS: BP 132/80
[2017-10-25] MEDS: PANTOPRAZOLE SODIUM 40 MG TAB PO SCH (08:12)
[2017-10-25] MEDS: MULTIVITAMIN WITH IRON PO SCH (08:13)
[2017-10-25] MEDS ORDERED: ALLOPURINOL 300 MG TAB PO SCH (09:00)
[2017-10-25] MEDS ORDERED: Vilazodone Hcl [Viibryd] 20 MG PO SCH (09:00)
[2017-10-25] MEDS ORDERED: TORSEMIDE 20 MG TAB PO SCH (09:00)
[2017-10-25] MEDS ORDERED: SPIRONOLACTONE 25 MG TAB PO SCH (09:00)
[2017-10-25] MEDS ORDERED: HYDROCHLOROTHIAZIDE 25 MG TAB PO SCH (09:00)
--- NOTE | 2017-10-25 10:48 | ASMTCMCOM ---
CM Note CM Note Notes: Chart reviewed. Patient medically cleared for discharge to home. No needs identified. CM available should needs arise. Date Signed: 10/25/2017 10:47 AM Electronically Signed By:Michelle Patel RN
--- NOTE | 2017-10-25 13:35 | GDS ---
[f rep st] DISCHARGE SUMMARY ADMIT DIAGNOSES: 1. Chest discomfort. 2. Dyspnea. 3. Mild pulmonary hypertension. 4. Right and left heart catheterization on 10/24/2017. DISCHARGE DIAGNOSES: 1. Status post right and left heart catheterization. 2. Moderate pulmonary hypertension. 3. Obesity. COURSE OF HOSPITALIZATION: This nice 56-year-old female has had multiple previous admissions due to dyspnea. She does live in [place], [place], and uses oxygen continuously at altitude. Due to her continued dyspnea, she underwent rate and left heart cath on 10/24/2017, demonstrating no obstructive disease. She does have moderate pulmonary hypertension with a mean PA of 35. She has congestive heart failure and is followed by Dr. Pito Cedillo at [facility]. This morning, she is feeling much better. She is up in her room without oxygen. She has no new complaints. Her wrist access site is intact with no bleeding, induration or ecchymosis. She has good distal capillary refill. She is eager for discharge. She does plan to participate in cardiac rehab due to her congestive heart failure. This will be arranged to be done in [place] for her convenience. At this time, she currently is stable for discharge. MEDICATIONS: She will go home on metformin 1000 mg b.i.d., Levemir insulin 35 units subcu b.i.d., Humulin R 100 units/mL 2 to 10 units subcu before meals and at bedtime, lorazepam 0.5 mg twice daily as needed, Synthroid 500 mcg daily, Klor-Con 40 mEq b.i.d., Aldactone 25 mg daily, morphine SR 15 mg at bedtime, OxyContin IR 5 mg every 4 hours as needed, Zyrtec 10 mg at bedtime, Protonix 40 mg b.i.d., Neurontin 1200 mg at bedtime. Pepcid 20 mg b.i.d., Lunesta 3 mg at bedtime, allopurinol 300 mg daily, Ventolin 2 puffs inhaled every 6 hours as needed, DuoNeb 3 mL inhaled as needed, multivitamins 1 twice daily, Neurontin 600-1200 mg twice daily as needed, MS Contin 15 mg daily as needed, Topamax 100 mg at bedtime, hydrochlorothiazide 25 mg daily, Senokot 1 twice daily as needed , aspirin enteric-coated 81 mg twice daily, Tums 500 mg to 1000 mg b.i.d. as needed, herbal supplements 1 daily, Lisinopril/hydrochlorothiazide 20 mg daily, torsemide 20 mg daily, metoprolol tartrate 37.5 mg twice daily, acetaminophen 650 mg 4 times daily as needed, Humulin R 2 to 10 units subcu before bedtime, Nitrostat 0.4 mg as needed sublingually. ALLERGIES: Butorphanol, penicillins, vancomycin, Azithromycin, bupropion. EXAMINATION ON DAY OF DISCHARGE: VITAL SIGNS: Blood pressure 132/80, heart rate regular at 77, oxygen saturation 90% on room air. She does use CPAP, temperature 37.1. HEART: Rate regular. No murmurs, rubs, gallops. LUNGS: Sounds are clear to auscultation. No wheezes, rales, or rhonchi. EXTREMITIES: No peripheral edema noted. Left wrist cast access site is intact with no bleeding, induration or pain. Good distal peripheral capillary refill. DISCHARGE PLAN: She will be discharged home and will follow up with Dr. Cedillo in 10 days. We will plan to send order to [facility]. Should she have any problems, she is to call [facility] and speak to the physician on-call. At this time, she currently is stable for discharge. /[id number]/MODL MTDD
== END 2017-10-25 11:48 | disposition home or self-care (01) ==
LOC: FCATH 07:25 → F2W 10:05
PROVIDERS: ADMIT Internal Medicine Cardiovascular Disease; ATTEND Internal Medicine Cardiovascular Disease
PROC: B2111ZZ Fluoroscopy of Multiple Coronary Arteries using Low Osmolar Contrast (ICD-10-PCS; principal; 2017-10-24)
PROC: 4A023N6 Measurement of Cardiac Sampling and Pressure, Right Heart, Percutaneous Approach (ICD-10-PCS; principal; 2017-10-24)
DX: I27.20 Pulmonary hypertension, unspecified (principal); I50.9 Heart failure, unspecified; E66.9 Obesity, unspecified; R06.02 Shortness of breath; R07.89 Other chest pain; Z68.43 Body mass index [BMI] 50.0-59.9, adult; R00.2 Palpitations; E11.9 Type 2 diabetes mellitus without complications; I11.0 Hypertensive heart disease with heart failure; J45.909 Unspecified asthma, uncomplicated; I48.91 Unspecified atrial fibrillation; E03.9 Hypothyroidism, unspecified; I44.1 Atrioventricular block, second degree; M10.9 Gout, unspecified; I49.5 Sick sinus syndrome; Z79.82 Long term (current) use of aspirin; Z79.84 Long term (current) use of oral hypoglycemic drugs; Z87.442 Personal history of urinary calculi; Z95.0 Presence of cardiac pacemaker; Z99.81 Dependence on supplemental oxygen; Z88.0 Allergy status to penicillin
CPT/HCPCS: 93005; 93456; C1769; G0378; J1644; J1815; J2250; J3010; Q9967